=== PATIENT | female | born 1955 | race Caucasian/White ===

== ENCOUNTER 2017-01-05 07:09 | Day surgery (SDC) | payer BC ==
[2017-01-03 13:29] VITALS: BMI 30.7
[~2017-01-05 07:09] MED LIST: LACTATED RINGERS 1,000 ML IV SCH
[2017-01-05] MEDS ORDERED: LACTATED RINGERS 1,000 ML IV ONE (07:17)
[2017-01-05 07:28] VITALS: TEMP 97
[2017-01-05 07:32] LABS: Glucose,Whole Blood 220 mg/dL (75-99)
[2017-01-05] MEDS ORDERED: PROPOFOL 10 MG/ML 20 ML VIAL IV ONE (07:56)
[2017-01-05] MEDS ORDERED: MIDAZOLAM 2 MG/2 ML VIAL ONE (07:56)
[2017-01-05] MEDS ORDERED: fentaNYL (PF) 50 MCG/ML 2 ML AMP ONE (07:56)
[2017-01-05 08:26] VITALS: RESP 16
--- NOTE | 2017-01-05 08:30 | P.PCN ---
Date of Procedure: 01/05/17 Procedure(s) Performed: Procedure: Total colonoscopy. Preoperative diagnosis: Screening for neoplasia. Postoperative diagnosis: Mild evidence of cirrhosis. Preparation: HalfLytely prep. Sedation: Was provided by anesthesia. Brief clinical history: The patient is a 61-year-old female who is referred for this evaluation for screening for neoplasia. She had no prior exams the last was around 10 years ago. At this time, she has no abdominal complaints, bleeding or anemia. No family history of colon cancer. Procedure: With the patient on her left lateral decubitus position and after informed consent and adequate sedation, the perianal area was inspected and it did not show any fissures or fistulas. There were no masses felt on digital rectal examination. The Olympus CFQ 160L video colonoscope was then inserted in the rectum in the usual fashion and advanced to the cecum. The mucosa appeared healthy. There was occasional diverticular orifices seen in the sigmoid and around the hepatic flexure with no evidence of acute diverticulitis or strictures. No polyps or tumors were seen. I retroflexed endoscope in the rectum before the endoscope was withdrawn. The patient tolerated the procedure well. Plan: The patient was reassured. Discussed dietary measures. She will follow- up with you as planned and I recommended repeat exam in 10 years.
[2017-01-05 08:41] VITALS: BP 124/67; PULSE 66
[2017-01-05 08:43] LABS: Glucose,Whole Blood 245 mg/dL (75-99)
== END 2017-01-05 09:11 | disposition home or self-care (01) ==
LOC: ORWHC2ENDO 07:09
DX: Z12.11 Encounter for screening for malignant neoplasm of colon (principal); K57.30 Diverticulosis of large intestine without perforation or abscess without bleeding; E11.9 Type 2 diabetes mellitus without complications; K21.9 Gastro-esophageal reflux disease without esophagitis; Z79.82 Long term (current) use of aspirin; Z79.4 Long term (current) use of insulin; Z79.899 Other long term (current) drug therapy; Z91.018 Allergy to other foods
CPT/HCPCS: J2250; J3010; J2704; G0121

== ENCOUNTER → 2017-02-27 | Outpatient (CLI) | payer BC ==
--- NOTE | 2017-02-28 08:21 | MM ---
Reason for exam: screening (asymptomatic). Last mammogram was performed 1 year and 2 months ago. History: Patient is postmenopausal. Family history of breast cancer in paternal cousin at age 40. Benign stereotactic core biopsy of the right breast, December 21, 1998. Core biopsy of the right breast. Took estrogen for 2 years. Physical Findings: A clinical breast exam by your physician is recommended on an annual basis and results should be correlated with mammographic findings. MG Screening Mammo w CAD Bilateral CC and MLO view(s) were taken. Prior study comparison: December 29, 2015, bilateral MG screening mammo w CAD. October 02, 2014, bilateral MG screening mammo w CAD. The breast tissue is almost entirely fat. Previous mammotome biopsy in the right breast. No significant changes when compared with prior studies. ASSESSMENT: Benign, BI-RAD 2 RECOMMENDATION: Routine screening mammogram of both breasts in 1 year.
== END | disposition home or self-care (01) ==
LOC: RADMAMWWP 07:03
PROVIDERS: ATTEND Family Medicine
DX: Z12.31 Encounter for screening mammogram for malignant neoplasm of breast (principal)

== ENCOUNTER → 2018-03-19 | Outpatient (CLI) | payer BC ==
[2018-03-19 11:07] LABS: Vitamin D 25 Hydroxy 29.2 ng/mL (30.0-100.0)
== END | disposition home or self-care (01) ==
LOC: LABWHC1 07:12
PROVIDERS: ATTEND Psychiatry & Neurology Neurology
DX: R41.3 Other amnesia (principal)
CPT/HCPCS: 36415; 82306; 82607; 82747; 85652

== ENCOUNTER → 2018-04-06 | Outpatient (CLI) | payer BC ==
[2018-04-06 12:31] LABS: Albumin 4.2 g/dL (3.5-5.0); Calcium 9.4 mg/dL (8.4-10.2); Potassium 4.5 mmol/L (3.5-5.1); Total Bilirubin 0.7 mg/dL (0.2-1.3)
== END | disposition home or self-care (01) ==
LOC: LABWHC1 11:50
PROVIDERS: ATTEND Internal Medicine Endocrinology, Diabetes & Metabolism
DX: E11.65 Type 2 diabetes mellitus with hyperglycemia (principal); E55.9 Vitamin D deficiency, unspecified
CPT/HCPCS: 36415; 80053; 80061; 82043; 82306; 82570; 83036

== ENCOUNTER → 2018-04-30 | Outpatient (CLI) | payer BC ==
--- NOTE | 2018-05-01 10:51 | MM ---
Reason for exam: screening (asymptomatic). Last mammogram was performed 1 year and 2 months ago. History: Patient is postmenopausal. Family history of breast cancer in paternal cousin at age 40. Benign stereotactic core biopsy of the right breast, December 21, 1998. Core biopsy of the right breast. Took estrogen for 2 years. Physical Findings: A clinical breast exam by your physician is recommended on an annual basis and results should be correlated with mammographic findings. MG Screening Mammo w CAD Bilateral CC and MLO view(s) were taken. Prior study comparison: February 27, 2017, bilateral MG screening mammo w CAD. December 29, 2015, bilateral MG screening mammo w CAD. There are scattered fibroglandular densities. Previous mammotome biopsy in the right breast. There is no discrete abnormality. ASSESSMENT: Benign, BI-RAD 2 RECOMMENDATION: Routine screening mammogram of both breasts in 1 year.
== END | disposition home or self-care (01) ==
LOC: RADMAMWWP 07:34
PROVIDERS: ATTEND Family Medicine
DX: Z12.31 Encounter for screening mammogram for malignant neoplasm of breast (principal)
CPT/HCPCS: 77067

== ENCOUNTER → 2018-05-08 | Outpatient (CLI) | payer BC ==
--- NOTE | 2018-05-08 16:43 | BD ---
EXAMINATION TYPE: Axial Bone Density DATE OF EXAM: 05/08/2018 COMPARISON: NONE CLINICAL HISTORY: 62 YR OLD FEMALE.....ICD-10 CODE: Z13.820 SCREENING FOR OSTEOPOROSIS Height: 60.4 Weight: 165 FRAX RISK QUESTIONS: History of Fracture in Adulthood: YES Secondary Osteoporosis: YES 1. Type 1 Diabetes: YES 5. Chronic liver disease: FATTY LIVER RISK FACTORS HISTORY OF: HX OF RT ANKLE FRACTURE..> 51 YRS OLD Family History of Osteoporosis: NONE KNOWN Active: SOMEWHAT Diet low in dairy products/other sources of calcium: NO Postmenopausal woman: YES AT AGE 49 YRS OLD MEDICATIONS: Thyroid Medications: STOPPED TAKING THEM 10 YRS AGO Additional Medications: ZOLOFT, INSULIN, VIT D3, REFLUX MEDS. Additional History: DIABETIC, OSTEOARTHRITIS EXAM MEASUREMENTS: Bone mineral densitometry was performed using the [employer]gent[employer] System. Bone mineral density as measured about the Lumbar spine is: ----- L1-L4(G/cm2): 1.397 T Score Values are as follows: ----- L1: 1.3 ----- L2: 2.6 ----- L3: 2.3 ----- L4: 1.0 ----- L1-L4: 1.8 Bone mineral density FIRST BONE DENSITY AT [facility] Bone mineral density about the R hip (g/cm2): 1.328 Bone mineral density about the L hip (g/cm2): 1.299 T Score values are as follows: -----R Neck: 1.5 -----L Neck: 0.9 -----R Total: 2.5 -----L Total: 2.3 Bone mineral density HER FIRST FOR MPH FRAX%s: THERE IS A 9.2% CHANCE OF A MAJOR OSTEOPOROTIC FX AND A 0.1% FOR A HIP FX.....PROBABILITY OF FX IN 10 YRS TIME IMPRESSION: Normal (Values between +1 and -1 indicate normal bone mass). Consider repeating this study in 5 year s or sooner if there is some new clinical indication. NOTE: T-SCORE=SD OF THE YOUNG ADULT MEAN.
== END | disposition home or self-care (01) ==
LOC: RADBDWWP 07:54
PROVIDERS: ATTEND Internal Medicine Rheumatology
DX: Z13.820 Encounter for screening for osteoporosis (principal)
CPT/HCPCS: 77080

== ENCOUNTER → 2018-06-04 | Outpatient (CLI) | payer BC ==
[2018-06-04 13:08] LABS: ALT 54 U/L (9-52); AST 45 U/L (14-36); Alkaline Phosphatase 58 U/L (38-126)
== END | disposition home or self-care (01) ==
LOC: LABWHC1 12:07
PROVIDERS: ATTEND Psychiatry & Neurology Neurology
DX: R79.9 Abnormal finding of blood chemistry, unspecified (principal); T50.905D Adverse effect of unspecified drugs, medicaments and biological substances, subsequent encounter
CPT/HCPCS: 36415; 84075; 84450; 84460

== ENCOUNTER → 2018-08-18 | Outpatient (CLI) | payer BC ==
[2018-08-18 17:53] LABS: Albumin 4.5 g/dL (3.80-4.90); Albumin/Globulin Ratio 2.14 (1.20-2.10); Anion Gap 7.9 mmol/L (4.00-12.00); Calcium 9.6 mg/dL (8.7-10.3); Carbon Dioxide 28.1 mmol/L (21.6-31.8); Globulin 2.1 g/dL (2.1-3.7); LDL Cholesterol,Calculated 270.2 mg/dL (0.0-131.0); Potassium 4.2 mmol/L (3.5-5.5); Total Bilirubin 0.4 mg/dL (0.2-1.2); Total Protein 6.6 g/dL (6.2-8.2); VLDL Calculation 39.8 mg/dL (5.00-40.00)
[2018-08-18 19:57] LABS: Hemoglobin A1C 8.7 % (4.0-6.0)
== END ==
LOC: LABWHC1 10:06
PROVIDERS: ATTEND Internal Medicine Endocrinology, Diabetes & Metabolism
DX: E11.65 Type 2 diabetes mellitus with hyperglycemia (principal)
CPT/HCPCS: 36415; 80053; 80061; 82043; 82570; 83036

== ENCOUNTER → 2018-09-21 | Outpatient (CLI) | payer BC ==
--- NOTE | 2018-09-21 15:38 | US ---
EXAMINATION TYPE: US carotid duplex BILAT DATE OF EXAM: 09/21/2018 COMPARISON: NONE CLINICAL HISTORY: R94.01 Abnormal EEG. EXAM MEASUREMENTS: RIGHT: Peak Systolic Velocity (PSV) cm/sec ----- Right CCA: 66.3 ----- Right ICA: 75.0 ----- Right ECA: 114.0 ICA/CCA ratio: 1.1 RIGHT: End Diastole cm/sec ----- Right CCA: 19.8 ----- Right ICA: 27.0 ----- Right ECA: 13.9 LEFT: Peak Systolic Velocity (PSV) cm/sec ----- Left CCA: 70.0 ----- Left ICA: 84.5 ----- Left ECA: 116.1 ICA/CCA ratio: 1.2 LEFT: End Diastole cm/sec ----- Left CCA: 19.7 ----- Left ICA: 30.7 ----- Left ECA: 9.5 VERTEBRALS (direction of flow): Right Vertebral: Antegrade Left Vertebral: Antegrade Rhythm: Normal Minimal amount of plaque visualized bilaterally. No elevated velocities, no significant stenosis. IMPRESSION: Mild degree of grayscale atheromatous plaquing with no sonographically evident hemodynam ically significant stenosis within either visualized carotid arterial system. Criteria for Assigning % of Stenosis / Diameter reduction (Estimation based on the indirect measurements of the internal carotid artery velocities (ICA PSV). 1. Normal (no stenosis)=ICA PSV < 125 cm/s: ratio < 2.0: ICA EDV<40 cm/s. 2. Less than 50% stenosis=ICA PSV < 125 cm/s: ratio < 2.0: ICA EDV<40 cm/s. 3. 50 to 69% stenosis=ICA PSV of 125 to 230 cm/s: ration 2.0 ? 4.0: ICA EDV 40-100 cm/s. 4. Greater than 70% stenosis to near occlusion= ICA PSV > 230 cm/s: ratio > 4.0: ICA EDV > 100 cm/s. 5. Near occlusion= ICA PSV velocities may be low or undetectable: variable ratio and ICA EDV. 6. Total occlusion=unable to detect flow.
== END | disposition home or self-care (01) ==
LOC: RADUSWWP 14:43
PROVIDERS: ATTEND Psychiatry & Neurology Neurology
DX: I65.23 Occlusion and stenosis of bilateral carotid arteries (principal)
CPT/HCPCS: 93880

== ENCOUNTER → 2018-10-15 | Outpatient (CLI) | payer BC ==
[2018-10-15 21:24] LABS: LDL Cholesterol,Calculated 220.2 mg/dL (0.0-131.0); VLDL Calculation 27.8 mg/dL (5.00-40.00)
== END | disposition home or self-care (01) ==
LOC: LABWHC1 11:17
PROVIDERS: ATTEND Psychiatry & Neurology Neurology
DX: E78.5 Hyperlipidemia, unspecified (principal)
CPT/HCPCS: 36415; 80061

== ENCOUNTER → 2018-10-25 | Outpatient (CLI) | payer BC ==
--- NOTE | 2018-10-29 08:32 | MR ---
EXAMINATION TYPE: MR brain wo con DATE OF EXAM: 10/25/2018 COMPARISON: 02/22/2016 HISTORY: Rt sided numbness, memory loss CONTRAST: Performed utilizing 0 mL intravenous Gadavist gadolinium contrast. TECHNIQUE: Multiplanar, multiecho imaging on a 3.0 Naomi magnet is performed through the brain. Stud y is performed within 24 hours of arrival to the hospital. The craniovertebral junction is normal. The pituitary is normal. Diffusion-weighted imaging is performed. No abnormal hyperintensity is present to suggest an acute i ntracranial infarct or acute ischemic change. Signal through the brain appears unremarkable . There are couple of punctate white matter changes wit hin the trilobar region and right hemisphere not out of proportion to the patient age. Ventricles and sulci are appropriate for the patient age. Portion of the optic chiasm visualized is normal. IMPRESSIONS: 1. MRI brain appears within normal limits. There are couple of punctate white matter changes which ar e nonspecific and not out of proportion to the patient age. This finding could be associated with randy aurora headaches.
== END ==
LOC: RADMRIMAIN 16:39
PROVIDERS: ATTEND Psychiatry & Neurology Neurology
DX: R90.89 Other abnormal findings on diagnostic imaging of central nervous system (principal)
CPT/HCPCS: 70551

== ENCOUNTER → 2018-11-10 | Outpatient (CLI) | payer BC ==
[2018-11-10 17:17] LABS: LDL Cholesterol,Calculated 229.6 mg/dL (0.0-131.0); VLDL Calculation 27.4 mg/dL (5.00-40.00)
== END ==
LOC: LABWHC1 10:32
PROVIDERS: ATTEND Psychiatry & Neurology Neurology
DX: E78.5 Hyperlipidemia, unspecified (principal); E78.1 Pure hyperglyceridemia
CPT/HCPCS: 36415; 80061

== ENCOUNTER 2018-11-22 18:37 | Emergency (ER) | payer BC ==
[2018-11-22 19:38] LABS: Basophils # (A) 0.1 k/uL (0-0.2); Basophils % (A) 1 %; Eosinophils # (A) 0.3 k/uL (0-0.7); Eosinophils % (A) 4 %; HCT 40.4 % (34.0-46.0); HGB 13.6 gm/dL (11.4-16.0); Lymphocytes % (A) 25 %; MCH 28.8 pg (25.0-35.0); MCHC 33.7 g/dL (31.0-37.0); MCV 85.6 fL (80.0-100.0); Mean Platelet Volume 6.8; Monocytes # (A) 0.4 k/uL (0-1.0); Monocytes % (A) 6 %; Neutrophils % (A) 64 %; Platelet Count 240 k/uL (150-450); RBC 4.72 m/uL (3.80-5.40); RDW 15.2 % (11.5-15.5); WBC 7.9 k/uL (3.8-10.6)
[2018-11-22 19:41] VITALS: RESP 16
[2018-11-22 19:43] LABS: Appearance,Urine Clear (Clear); Bacteria,Urine Occasional /hpf; Bilirubin,Urine Negative (Negative); Blood,Urine Negative (Negative); Color,Urine Light Yellow; Glucose,Urine (UA) Negative (Negative); Ketones,Urine Negative (Negative); Leukocyte Esterase,Urine Moderate (Negative); Mucus,Urine Rare /hpf; Nitrite,Urine Negative (Negative); Protein,Urine Negative (Negative); RBC,Urine 1 /hpf (0-5); Specific Gravity,Urine 1.012 (1.001-1.035); Squamous Epithelial Cell,Urine 3 /hpf (0-4); Urobilinogen,Urine <2.0 mg/dL (<2.0)
[2018-11-22 20:02] LABS: Albumin 4.4 g/dL (3.5-5.0); Potassium 4.6 mmol/L (3.5-5.1); Total Bilirubin 0.5 mg/dL (0.2-1.3); Total Protein 7.2 g/dL (6.3-8.2)
--- NOTE | 2018-11-22 20:35 | CT ---
EXAMINATION TYPE: CT abdomen pelvis wo con DATE OF EXAM: 11/22/2018 COMPARISON: None HISTORY: Mid back pain radiating to RT side CT DLP: 551 mGycm Automated exposure control for dose reduction was used. TECHNIQUE: Helical acquisition of images was performed from the lung bases through the pelvis. FINDINGS: There is subsegmental atelectasis at the lung bases. There is no pleural effusion. Heart size is norm al. There is no pericardial effusion. Stomach appears normal. There are clips from cholecystectomy. L iver shows no focal defect. The bile ducts are not dilated. Spleen appears normal. There is no pancre atic mass. There is no adrenal mass. Kidneys have normal size and contour. There is no hydronephrosis. Ureters a re not dilated. There are retroperitoneal and bilateral calcified granulomata. There is no retroperit godoy adenopathy. Bladder distends smoothly. There is no inguinal hernia. There is no evidence of a b owel obstruction. Appendix appears normal. There is no mesenteric edema. There is small umbilical her toyin that contains fat. I see no bony destructive process. Lumbar vertebra are intact. There is hyster ectomy. There is no mesenteric edema. There is no free air. There is no ascites. IMPRESSION: NO ACUTE INTRA-ABDOMINAL ABNORMALITY. NO RENAL STONE OR OBSTRUCTION. NORMAL APPENDIX. OLD GRANULOMATO US DISEASE. MILD SUBSEGMENTAL ATELECTASIS AT THE LUNG BASES.
--- NOTE | 2018-11-22 20:49 | ED ---
General Adult HPI - General Chief complaint: Back Pain/Injury Stated complaint: poss kidney infection Time Seen by Provider: 11/22/18 18:53 Source: patient, RN notes reviewed, old records reviewed Mode of arrival: ambulatory Limitations: no limitations - History of Present Illness Initial comments: 63-year-old female patient past medical history of type 2 diabetes, GERD presents to ED approximately one year of right parathoracic/flank pain. Patient reports that today while at the chiropractor he this to the pain from that area and explained to patient that is where her kidneys are located and she should come to the ER to be checked out for kidney issues. Patient denies any dysuria, dark urine or hematuria. Patient denies any other complaints today. Systemic: Pt denies fatigue, myalgia, fever/chills, rash. Pt denies weakness, night sweats, weight loss. Neuro: Pt denies headache, visual disturbances, syncope or pre-syncope. HEENT: Pt denies ocular discharge or irritation, otalgia, rhinorrhea, pharyngitis or notable lymphadenopathy. Cardiopulmonary: Pt denies chest pain, SOB, heart palpitations, dyspnea on exertion. Abdominal/GI: Pt denies abdominal pain, n/v/d. : Pt denies dysuria, burning w/ urination, frequency/urgency. Denies new onset urinary or bowel incontinence. MSK: Pt denies myalgia, loss of strength or function in extremities. Neuro: Pt denies new onset weakness, paresthesias. - Related Data Home Medications Medication Instructions Recorded Confirmed Pantoprazole Sodium 40 mg PO BID 01/19/15 11/22/18 Sertraline [Zoloft] 200 mg PO HS 01/19/15 11/22/18 Aspirin EC [Ecotrin Low Dose] 162 mg PO HS 11/22/18 11/22/18 Cholecalciferol [Vitamin D3] 4,000 unit PO DAILY 11/22/18 11/22/18 Insulin NPH Hum/Reg Insulin Hm 50 unit SQ AC-BID 11/22/18 11/22/18 [Novolin 70-30 Flexpen] Previous Rx's Medication Instructions Recorded Cephalexin [Keflex] 500 mg PO Q12HR 10 Days #20 cap 11/22/18 Allergies Allergy/AdvReac Type Severity Reaction Status Date / Time latex Allergy Unknown Verified 11/22/18 19:12 Hqkjydb-Lqk-Emy Reductase Allergy Unknown Verified 11/22/18 19:12 Inhibitor Yeast Allergy severe Verified 11/22/18 19:12 coughing,n/v Review of Systems ROS Statement: Those systems with pertinent positive or pertinent negative responses have been documented in the HPI. ROS Other: All systems not noted in ROS Statement are negative. 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, HX FATTY LIVER & ELEVATED LIVER ENZYMES History of Any Multi-Drug Resistant Organisms: None Reported Past Surgical History: Section, Cholecystectomy, Hysterectomy, Ortho pedic Surgery Additional Past Surgical History / Comment(s): BILAT-CTR Past Anesthesia/Blood Transfusion Reactions: Previous Problems w/ Anesthesia Additional Past Anesthesia/Blood Transfusion Reaction / Comment(s): SLOW TO WAKE UP FROM ANESTHESIA,no problems with prior blood transfusions Past Psychological History: Anxiety, Depression, Panic Disorder Smoking Status: Never smoker Past Alcohol Use History: None Reported Past Drug Use History: None Reported - Past Family History Father Family Medical History: Dementia Mother Family Medical History: No Reported History General Exam - General Exam Comments Initial Comments: Constitutional: NAD, AOX3, Pt has pleasant affect. HEENT: NC/AT, trachea midline, neck supple, no lymphadenopathy. Posterior pharyn x non erythematous, without exudates. External ears appear normal, without discharge. Mucous membranes moist. Eyes PERRLA, EOM intact. There is no scleral icterus. No pallor noted. Cardiopulmonary: RRR, no murmurs, rubs or gallops, no JVD noted. Lungs CTAB in anterior and posterior garsia. No peripheral edema. Abdominal exam: Abdomen soft and non-distended. Abdomen non-tender to palpation in all 4 quadrants. Bowel sounds active in LLQ. No hepatosplenomegaly. No ecchymosis. CVA tenderness negative bilaterally. Neuro: CN II-XII grossly intact. No nuchal rigidity. MSK: No cervical thoracic or lumbar tenderness. No posterior calf tenderness bilaterally, homans sign negative bilaterally. Posterior tibialis and radial pulse +2 bilaterally. Sensation intact in upper and lower extremities. Full active ROM in upper and lower extremities, 5/5 stregnth. Limitations: no limitations Course Vital Signs 11/22/18 11/22/18 18:46 19:41 Temperature 98.3 F Pulse Rate 77 63 Respiratory 18 16 Rate Blood Pressure 131/82 O2 Sat by Pulse 93 L 98 Oximetry Medical Decision Making - Medical Decision Making 63-year-old female patient past medical history of type 2 diabetes, GERD presents to ED approximately one year of right parathoracic/flank pain. Patient reports that today while at the chiropractor he this to the pain from that area and explained to patient that is where her kidneys are located and she should come to the ER to be checked out for kidney issues. Patient denies any dysuria, dark urine or hematuria. Patient denies any other complaints today. Patient will signs stable, afebrile. Physical exam did not display acute pathology. CBC noncompressive. CMP revealed hyperglycemia, mildly Elevated liver enzymes. UA revealed mild UTI. CT abdomen and pelvis did not display acute pathology. Patient discharged with outpatient follow-up with primary care provider. Patient treated for urinary tract infection with Keflex. Case discussed with Dr. Pérez. - Lab Data Result diagrams: 11/22/18 19:20 11/22/18 19:20 Lab Results 11/22/18 11/22/18 11/22/18 Range/Units 19:20 19:20 19:20 WBC 7.9 (3.8-10.6) k/uL RBC 4.72 (3.80-5.40) m/uL Hgb 13.6 (11.4-16.0) gm/dL Hct 40.4 (34.0-46.0) % MCV 85.6 (80.0-100.0) fL MCH 28.8 (25.0-35.0) pg MCHC 33.7 (31.0-37.0) g/dL RDW 15.2 (11.5-15.5) % Plt Count 240 (150-450) k/uL Neutrophils % 64 % Lymphocytes % 25 % Monocytes % 6 % Eosinophils % 4 % Basophils % 1 % Neutrophils # 5.0 (1.3-7.7) k/uL Lymphocytes # 2.0 (1.0-4.8) k/uL Monocytes # 0.4 (0-1.0) k/uL Eosinophils # 0.3 (0-0.7) k/uL Basophils # 0.1 (0-0.2) k/uL Sodium 140 (137-145) mmol/L Potassium 4.6 (3.5-5.1) mmol/L Chloride 104 (98-107) mmol/L Carbon Dioxide 25 (22-30) mmol/L Anion Gap 11 mmol/L BUN 23 H (7-17) mg/dL Creatinine 0.96 (0.52-1.04) mg/dL Est GFR (CKD-EPI)AfAm 73 (>60 ml/min/1.73 sqM) Est GFR (CKD-EPI)NonAf 64 (>60 ml/min/1.73 sqM) Glucose 232 H (74-99) mg/dL Calcium 10.0 (8.4-10.2) mg/dL Total Bilirubin 0.5 (0.2-1.3) mg/dL AST 47 H (14-36) U/L ALT 55 H (9-52) U/L Alkaline Phosphatase 70 (38-126) U/L Total Protein 7.2 (6.3-8.2) g/dL Albumin 4.4 (3.5-5.0) g/dL Urine Color Light Yellow Urine Appearance Clear (Clear) Urine pH 6.0 (5.0-8.0) Ur Specific [place] 1.012 (1.001-1.035) Urine Protein Negative (Negative) Urine Glucose (UA) Negative (Negative) Urine Ketones Negative (Negative) Urine Blood Negative (Negative) Urine Nitrite Negative (Negative) Urine Bilirubin Negative (Negative) Urine Urobilinogen <2.0 (<2.0) mg/dL Ur Leukocyte Esterase Moderate H (Negative) Urine RBC 1 (0-5) /hpf Urine WBC 11 H (0-5) /hpf Ur Squamous Epith Cells 3 (0-4) /hpf Urine Bacteria Occasional H (None) /hpf Urine Mucus Rare H (None) /hpf Disposition Clinical Impression: UTI (urinary tract infection) Disposition: HOME SELF-CARE Condition: Stable Instructions (If sedation given, give patient instructions): Urinary Tract Infection in Women (ED) Additional Instructions: Patient to adhere to previously discussed treatment plan and will take medication(s) as directed. Patient to follow up with PCP in 1-2 days. Patient to return to ED if symptoms do not improve. Please take medication as prescribed. Please follow-up with primary care provider in 1-2 days. Return to ER if condition worsens in anyway or new signs or symptoms develop. Prescriptions: Cephalexin [Keflex] 500 mg PO Q12HR 10 Days #20 cap Is patient prescribed a controlled substance at d/c from ED?: No Referrals: Donna Draper MD [Primary Care Provider] - 1-2 days
[2018-11-22 21:06] VITALS: BP 138/80; PULSE 68; TEMP 97.9
== END 2018-11-22 21:18 | disposition home or self-care (01) ==
LOC: EC 18:37
DX: N39.0 Urinary tract infection, site not specified (principal); E11.65 Type 2 diabetes mellitus with hyperglycemia; R79.89 Other specified abnormal findings of blood chemistry; K21.9 Gastro-esophageal reflux disease without esophagitis; F41.9 Anxiety disorder, unspecified; F32.9 Major depressive disorder, single episode, unspecified; Z79.84 Long term (current) use of oral hypoglycemic drugs; Z90.49 Acquired absence of other specified parts of digestive tract; Z90.710 Acquired absence of both cervix and uterus; Z79.4 Long term (current) use of insulin; Z79.899 Other long term (current) drug therapy; Z91.040 Latex allergy status; Z88.8 Allergy status to other drugs, medicaments and biological substances; Z91.048 Other nonmedicinal substance allergy status
CPT/HCPCS: 36415; 74176; 80053; 81001; 85025; 87086; 99284

== ENCOUNTER → 2019-03-11 | Outpatient (CLI) | payer BC ==
[2019-03-11 16:23] LABS: African American GFR (CKD) 62.3 (60.0-200.0); Albumin 4.5 g/dL (3.80-4.90); Albumin/Globulin Ratio 2.25 (1.60-3.17); Anion Gap 9.2 mmol/L (4.00-12.00); BUN/Creat Ratio 21.82 Ratio (12.00-20.00); Calcium 10.2 mg/dL (8.7-10.3); Carbon Dioxide 30.8 mmol/L (21.6-31.8); LDL Cholesterol,Calculated 215.2 mg/dL (0.0-131.0); Potassium 4.7 mmol/L (3.5-5.5); Total Bilirubin 0.4 mg/dL (0.2-1.2); Total Protein 6.5 g/dL (6.2-8.2); VLDL Calculation 33.8 mg/dL (5.00-40.00)
[2019-03-11 17:08] LABS: Hemoglobin A1C 7.5 % (4.0-6.0)
== END | disposition home or self-care (01) ==
LOC: LABWHC1 09:54
PROVIDERS: ATTEND Internal Medicine Endocrinology, Diabetes & Metabolism
DX: E11.65 Type 2 diabetes mellitus with hyperglycemia (principal); E78.5 Hyperlipidemia, unspecified
CPT/HCPCS: 36415; 80053; 80061; 82043; 82570; 83036; 84443

== ENCOUNTER → 2020-04-28 | Outpatient (CLI) | payer MEDICARE ==
[2020-04-28 22:34] LABS: African American GFR (CKD) 69.4 (60.0-200.0); Anion Gap 10.5 mmol/L (4.00-12.00); Calcium 9.5 mg/dL (8.7-10.3); Carbon Dioxide 25.5 mmol/L (21.6-31.8); Non-African American GFR(CKD) 59.9 (60.0-200.0); Potassium 4.1 mmol/L (3.5-5.5)
[2020-05-01 10:32] LABS: Soybean IgG 2.7 mcg/mL (< 2.0); Tomato IgG 11.7 mcg/mL (< 2.0); Walnut IgG 3.5 mcg/mL (< 2.0); Wheat IgG 28.9 mcg/mL (< 2.0)
[2020-05-01 10:33] LABS: Corn IgG 3.8 mcg/mL (< 2.0)
[2020-05-01 12:30] LABS: Chocolate IgG 4.4 mcg/mL (< 2.0); Crab IgG 2.5 mcg/mL (< 2.0); Peanut IgG 2.9 mcg/mL (< 2.0); Pork IgG 4.5 mcg/mL (< 2.0)
[2020-05-01 12:31] LABS: Apple IgG 3.3 mcg/mL (< 2.0); Banana IgG 30.6 mcg/mL (< 2.0); Beef IgG 31.1 mcg/mL (< 2.0); Cow's Milk IgG 92.5 mcg/mL (< 2.0); Orange IgG 3.1 mcg/mL (< 2.0); Potato IgG 4.9 mcg/mL (< 2.0)
[2020-05-01 12:32] LABS: Chicken Meat IgG <2.0 mcg/mL (< 2.0); Coffee IgG 5.8 mcg/mL (< 2.0); Oat IgG 19.3 mcg/mL (< 2.0); Rice IgG 5.1 mcg/mL (< 2.0)
[2020-05-05 14:54] LABS: Tea IgG 3.7 mcg/mL
== END | disposition home or self-care (01) ==
LOC: LABWHC1 11:19
PROVIDERS: ATTEND Otolaryngology
DX: E11.65 Type 2 diabetes mellitus with hyperglycemia (principal); J30.89 Other allergic rhinitis; R10.9 Unspecified abdominal pain; R14.0 Abdominal distension (gaseous)
CPT/HCPCS: 36415; 80048; 83930; 83935; 86001

== ENCOUNTER → 2020-04-30 | Outpatient (CLI) | payer MEDICARE ==
--- NOTE | 2020-04-30 14:23 | XR ---
EXAMINATION TYPE: XR shoulder complete RT DATE OF EXAM: 04/30/2020 COMPARISON: NONE HISTORY: 64-year-old female with right shoulder pain TECHNIQUE: 3 views FINDINGS: Mild degenerative change at the AC joint. No acute fracture, subluxation, dislocation seen. IMPRESSION: Mild AC joint OA. No acute osseous abnormality seen.
== END | disposition home or self-care (01) ==
LOC: RADXRMAIN 11:46
PROVIDERS: ATTEND Family Medicine
DX: M19.011 Primary osteoarthritis, right shoulder (principal)

== ENCOUNTER 2020-07-08 16:48 | Observation (INO) | payer MEDICARE ==
[2020-07-08 17:12] VITALS: RESP 18
--- NOTE | 2020-07-08 17:58 | ED ---
SOB HPI - General Chief Complaint: Shortness of Breath Stated Complaint: Sent by PCP - Need EKG,SOB Time Seen by Provider: 07/08/20 17:21 Source: patient Mode of arrival: ambulatory Limitations: no limitations - History of Present Illness Initial Comments: Patient is a 64-year-old female with past history of diabetes presents emergency room with reported exertional shortness of breath and chest pain. States that she has had exertional shortness of breath and chest pain that has gotten progressively worse over the past several days. She also reports to lower extremity cramping which has been persistent since last week. She denies a history of DVT or PE. No lower externally swelling. Denies a previous history of cardiac disease. Did have an appointment with her primary care physician today. It was a tele-visit for which she described her symptoms and was recommended that she come into the emergency room for evaluation. Denies ripping or tearing sensation. No fevers, chills or cough. No other alleviating, precipitating or modifying factors - Related Data Home Medications Medication Instructions Recorded Confirmed Pantoprazole Sodium 40 mg PO AC-BID 01/19/15 07/08/20 Sertraline [Zoloft] 200 mg PO HS 01/19/15 07/08/20 Cholecalciferol [Vitamin D3 (25 4,000 unit PO DAILY 11/22/18 07/08/20 Mcg = 1000 Iu)] Gemfibrozil [Lopid] 600 mg PO AC-BID 07/08/20 07/08/20 Insulin NPH Hum/Reg Insulin Hm See Protocol SQ AC-BID 07/08/20 07/08/20 [NovoLIN 70-30 100 UNIT/ML VIAL] Insuln Asp Prt/Insulin Aspart 30 unit SQ AC-BID 07/08/20 07/08/20 [NovoLOG MIX 70-30 VIAL] Uvf-Osen-Nkktq Acid 1 cap PO DAILY 07/08/20 07/08/20 [-U Capsule (formulary)] Previous Rx's Medication Instructions Recorded Aspirin 81 mg PO DAILY chew 07/09/20 Allergies Allergy/AdvReac Type Severity Reaction Status Date / Time latex Allergy Swelling Verified 07/08/20 18:47 Yeast Allergy severe Verified 07/08/20 18:47 coughing,n/v Pvgyqhn-Edx-Ykl Reductase AdvReac Muscle pain Verified 07/08/20 18:47 Inhibitor Review of Systems ROS Statement: Those systems with pertinent positive or pertinent negative responses have been documented in the HPI. ROS Other: All systems not noted in ROS Statement are negative. 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, HX FATTY LIVER & ELEVATED LIVER ENZYMES History of Any Multi-Drug Resistant Organisms: None Reported Past Surgical History: Section, Cholecystectomy, Hysterectomy, Orthopedic Surgery Additional Past Surgical History / Comment(s): BILAT-CTR Past Anesthesia/Blood Transfusion Reactions: Previous Problems w/ Anesthesia Additional Past Anesthesia/Blood Transfusion Reaction / Comment(s): SLOW TO WAKE UP FROM ANESTHESIA,no problems with prior blood transfusions Past Psychological History: Anxiety, Depression, Panic Disorder Smoking Status: Former smoker Past Alcohol Use History: Rare Past Drug Use History: None Reported - Past Family History Father Family Medical History: Dementia Mother Family Medical History: No Reported History General Exam Limitations: no limitations General appearance: alert, in no apparent distress Head exam: Present: atraumatic, normocephalic, normal inspection Eye exam: Present: normal appearance, PERRL, EOMI. Absent: scleral icterus, conjunctival injection, periorbital swelling ENT exam: Present: normal exam, mucous membranes moist Neck exam: Present: normal inspection. Absent: tenderness, meningismus, lymphadenopathy Respiratory exam: Present: normal lung sounds bilaterally. Absent: respiratory distress, wheezes, rales, rhonchi, stridor Cardiovascular Exam: Present: regular rate, normal rhythm, normal heart sounds. Absent: systolic murmur, diastolic murmur, rubs, gallop, clicks GI/Abdominal exam: Present: soft, normal bowel sounds. Absent: distended, tenderness, guarding, rebound, rigid Extremities exam: Present: normal inspection, full ROM, normal capillary refill. Absent: tenderness, pedal edema, joint swelling, calf tenderness Back exam: Present: normal inspection Neurological exam: Present: alert, oriented X3, CN II-XII intact Psychiatric exam: Present: normal affect, normal mood Skin exam: Present: warm, dry, intact, normal color. Absent: rash Course Vital Signs 07/08/20 07/08/20 07/08/20 17:09 18:08 19:03 Temperature 98.4 F 98 F 98.9 F Pulse Rate 65 59 L 56 L Respiratory 18 18 18 Rate Blood Pressure 123/78 113/68 126/65 O2 Sat by Pulse 96 97 98 Oximetry 07/08/20 21:01 Temperature Pulse Rate 62 Respiratory 18 Rate Blood Pressure 121/55 O2 Sat by Pulse 97 Oximetry Medical Decision Making - Medical Decision Making Upon arrival patient is placed into room 3. A thorough history and physical exam was performed. 12-lead EKG was performed. Laboratory studies were conducted. Doppler ultrasound of lower ex was performed and was negative. Recommended hospital admission for cardiac consultation for which patient did agree to. Patient was then transferred to the floor in stable condition - Lab Data Result diagrams: 07/09/20 07:09 07/09/20 07:09 Lab Results 07/08/20 07/08/20 07/08/20 Range/Units 17:46 17:46 17:46 WBC 4.9 (3.8-10.6) k/uL RBC 4.24 (3.80-5.40) m/uL Hgb 13.3 (11.4-16.0) gm/dL Hct 37.0 (34.0-46.0) % MCV 87.1 (80.0-100.0) fL MCH 31.3 (25.0-35.0) pg MCHC 35.9 (31.0-37.0) g/dL RDW 14.0 (11.5-15.5) % Plt Count 179 (150-450) k/uL Neutrophils % 60 % Lymphocytes % 27 % Monocytes % 4 % Eosinophils % 6 % Basophils % 1 % Neutrophils # 2.9 (1.3-7.7) k/uL Lymphocytes # 1.3 (1.0-4.8) k/uL Monocytes # 0.2 (0-1.0) k/uL Eosinophils # 0.3 (0-0.7) k/uL Basophils # 0.0 (0-0.2) k/uL PT 10.1 (9.0-12.0) sec INR 1.0 (<1.2) APTT 24.8 (22.0-30.0) sec D-Dimer 0.23 (<0.60) mg/L FEU Sodium 138 (137-145) mmol/L Potassium 4.1 (3.5-5.1) mmol/L Chloride 105 (98-107) mmol/L Carbon Dioxide 25 (22-30) mmol/L Anion Gap 8 mmol/L BUN 21 H (7-17) mg/dL Creatinine 0.83 (0.52-1.04) mg/dL Est GFR (CKD-EPI)AfAm 87 (>60 ml/min/1.73 sqM) Est GFR (CKD-EPI)NonAf 76 (>60 ml/min/1.73 sqM) Glucose 167 H (74-99) mg/dL Plasma Lactic Acid Zeke (0.7-2.0) mmol/L Calcium 9.9 (8.4-10.2) mg/dL Total Bilirubin 0.4 (0.2-1.3) mg/dL AST 43 H (14-36) U/L ALT 55 H (4-34) U/L Alkaline Phosphatase 57 (38-126) U/L Troponin I (0.000-0.034) ng/mL NT-Pro-B Natriuret Pep pg/mL Total Protein 7.4 (6.3-8.2) g/dL Albumin 4.5 (3.5-5.0) g/dL 07/08/20 07/08/20 07/08/20 Range/Units 17:46 17:46 17:46 WBC (3.8-10.6) k/uL RBC (3.80-5.40) m/uL Hgb (11.4-16.0) gm/dL Hct (34.0-46.0) % MCV (80.0-100.0) fL MCH (25.0-35.0) pg MCHC (31.0-37.0) g/dL RDW (11.5-15.5) % Plt Count (150-450) k/uL Neutrophils % % Lymphocytes % % Monocytes % % Eosinophils % % Basophils % % Neutrophils # (1.3-7.7) k/uL Lymphocytes # (1.0-4.8) k/uL Monocytes # (0-1.0) k/uL Eosinophils # (0-0.7) k/uL Basophils # (0-0.2) k/uL PT (9.0-12.0) sec INR (<1.2) APTT (22.0-30.0) sec D-Dimer (<0.60) mg/L FEU Sodium (137-145) mmol/L Potassium (3.5-5.1) mmol/L Chloride (98-107) mmol/L Carbon Dioxide (22-30) mmol/L Anion Gap mmol/L BUN (7-17) mg/dL Creatinine (0.52-1.04) mg/dL Est GFR (CKD-EPI)AfAm (>60 ml/min/1.73 sqM) Est GFR (CKD-EPI)NonAf (>60 ml/min/1.73 sqM) Glucose (74-99) mg/dL Plasma Lactic Acid Zeke 0.7 (0.7-2.0) mmol/L Calcium (8.4-10.2) mg/dL Total Bilirubin (0.2-1.3) mg/dL AST (14-36) U/L ALT (4-34) U/L Alkaline Phosphatase (38-126) U/L Troponin I <0.012 (0.000-0.034) ng/mL NT-Pro-B Natriuret Pep 83 pg/mL Total Protein (6.3-8.2) g/dL Albumin (3.5-5.0) g/dL - EKG Data EKG Comments: EKG demonstrates a sinus bradycardia with a ventricular rate of 59. DE interval 152. QRS 78. QTC of 441. No acute ST segment elevations or depressions concerning for ischemic changes Disposition Clinical Impression: Chest pain Disposition: ADMITTED IP TO THIS [facility] Condition: Stable Is patient prescribed a controlled substance at d/c from ED?: No Decision to Admit Reason: Admit from EC Decision Date: 07/08/20 Decision Time: 20:13
--- NOTE | 2020-07-08 18:09 | XR ---
EXAMINATION TYPE: XR chest 2V DATE OF EXAM: 07/08/2020 COMPARISON: NONE HISTORY: Short of breath TECHNIQUE: 2 views FINDINGS: Heart and mediastinum are normal. Lungs are clear. Diaphragm is normal. There are chest lissette ds. Bony thorax is intact. IMPRESSION: Normal chest. Normal heart.
[2020-07-08 18:10] LABS: Basophils % (A) 1 %; Eosinophils # (A) 0.3 k/uL (0-0.7); Eosinophils % (A) 6 %; HGB 13.3 gm/dL (11.4-16.0); Lymphocytes # (A) 1.3 k/uL (1.0-4.8); Lymphocytes % (A) 27 %; MCH 31.3 pg (25.0-35.0); MCHC 35.9 g/dL (31.0-37.0); MCV 87.1 fL (80.0-100.0); Mean Platelet Volume 7.8; Monocytes # (A) 0.2 k/uL (0-1.0); Monocytes % (A) 4 %; Neutrophils # (A) 2.9 k/uL (1.3-7.7); Neutrophils % (A) 60 %; Platelet Count 179 k/uL (150-450); RBC 4.24 m/uL (3.80-5.40); WBC 4.9 k/uL (3.8-10.6)
[2020-07-08 18:21] LABS: Albumin 4.5 g/dL (3.5-5.0); Calcium 9.9 mg/dL (8.4-10.2); Potassium 4.1 mmol/L (3.5-5.1); Total Bilirubin 0.4 mg/dL (0.2-1.3); Total Protein 7.4 g/dL (6.3-8.2)
[2020-07-08 18:23] LABS: D-Dimer 0.23 mg/L FEU (<0.60); Partial Thromboplastin Time 24.8 sec (22.0-30.0); Prothrombin Time 10.1 sec (9.0-12.0)
[2020-07-08] MEDS ORDERED: NALOXONE 0.4 MG/ML 1 ML VIAL IV PRN (20:14)
--- NOTE | 2020-07-08 20:24 | US ---
EXAMINATION TYPE: US venous doppler duplex LE DATE OF EXAM: 07/08/2020 8:16 PM COMPARISON: NONE CLINICAL HISTORY: leg pain, exterional dyspnea. Leg pain x couple years intermittently. No hx of DVT. Patient does not take blood thinners. SIDE PERFORMED: Bilateral TECHNIQUE: The lower extremity deep venous system is examined utilizing real time linear array sonog erum with graded compression, doppler sonography and color-flow sonography. VESSELS IMAGED: External Iliac Vein (EIV) Common Femoral Vein Deep Femoral Vein Greater Saphenous Vein * Femoral Vein Popliteal Vein Small Saphenous Vein * Proximal Calf Veins (* superficial vessels) Right Leg: No evidence of DVT in veins imaged at this time from prox calf veins to EIV. Left Leg: No evidence of DVT in veins imaged at this time from prox calf veins to EIV. IMPRESSION: Negative exam. No evidence of deep vein thrombosis in both legs.
[2020-07-08] MEDS ORDERED: MELATONIN 5 MG TABLET PO SCH (21:15)
[2020-07-08] MEDS ORDERED: SERTRALINE 100 MG TAB PO SCH (22:45)
--- NOTE | 2020-07-08 22:55 | P.HPIM ---
History of Present Illness H&P Date: 07/08/20 The patient is a 64-year-old female with a PMH of type II DM and anxiety with panic attacks who presented to the ED with complaints of dyspnea on exertion and chest discomfort. The patient reports that she has a history of panic attacks when she feels that her chest becomes tight and she is not able to breathe. She notes that her current symptoms are different. She reports that over the past 2 weeks, she has had intermittent substernal chest tightness, with and without exertion, nonradiating, 4 out of 10 in intensity, and alleviating either with rest or on its own within a minute or 2. She notes that she was previously able to walk at a brisk pace for unlimited amount of time but now feels short of breath even with walking one block. As an example, she stated that walking from the emergency room parking lot to the entrance, she was really short of breath and developed her chest discomfort. She denied associated nausea, vomiting, palpitations, dizziness, or diaphoresis. Denied orthopnea, PND, or lower extremity edema. Reports a long-standing history of bilateral lower extremity cramping which she has been evaluated for by her PCPs. Denied pain radiating the back. In the emergency room, chest x-ray was unremarkable with EKG showing sinus bradycardia at 59 bpm with no acute ST/T-wave changes noted as reviewed by me. Lower extremity venous duplex was negative. Laboratory evaluation revealed a d-dimer of 0.23 with troponin less than 0.012. Review of Systems Pertinent positives and negatives as discussed in HPI, a complete review of systems was performed and all other systems are negative. 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, HX FATTY LIVER & ELEVATED LIVER ENZYMES History of Any Multi-Drug Resistant Organisms: None Reported Past Surgical History: Section, Cholecystectomy, Hysterectomy, Orthopedic Surgery Additional Past Surgical History / Comment(s): BILAT-CTR Past Anesthesia/Blood Transfusion Reactions: Previous Problems w/ Anesthesia Additional Past Anesthesia/Blood Transfusion Reaction / Comment(s): SLOW TO WAKE UP FROM ANESTHESIA,no problems with prior blood transfusions Past Psychological History: Anxiety, Depression, Panic Disorder Smoking Status: Former smoker Past Alcohol Use History: Rare Past Drug Use History: None Reported - Past Family History Father Family Medical History: Dementia Mother Family Medical History: No Reported History Medications and Allergies Home Medications Medication Instructions Recorded Confirmed Type Pantoprazole Sodium 40 mg PO AC-BID 01/19/15 07/08/20 History Sertraline [Zoloft] 200 mg PO HS 01/19/15 07/08/20 History Cholecalciferol [Vitamin D3] 4,000 unit PO DAILY 11/22/18 07/08/20 History Gemfibrozil [Lopid] 600 mg PO AC-BID 07/08/20 07/08/20 History Insulin NPH Hum/Reg Insulin Hm See Protocol SQ AC-BID 07/08/20 07/08/20 History [NovoLIN 70-30 100 UNIT/ML VIAL] Insuln Asp Prt/Insulin Aspart 30 unit SQ AC-BID 07/08/20 07/08/20 History [NovoLOG MIX 70-30 VIAL] Tkg-Sifh-Wkdvc Acid 1 cap PO DAILY 07/08/20 07/08/20 History [-U Capsule (formulary)] Allergies Allergy/AdvReac Type Severity Reaction Status Date / Time latex Allergy Swelling Verified 07/08/20 18:47 Yeast Allergy severe Verified 07/08/20 18:47 coughing,n/v Nwmqfmy-Vbi-Koy Reductase AdvReac Muscle pain Verified 07/08/20 18:47 Inhibitor Physical Exam Vitals: Vital Signs Temp Pulse Resp BP Pulse Ox 07/08/20 19:03 98.9 F 56 L 18 126/65 98 07/08/20 18:08 98 F 59 L 18 113/68 97 07/08/20 17:09 98.4 F 65 18 123/78 96 Intake and Output 07/08/20 07/08/20 07/08/20 06:59 14:59 22:59 Other: Weight 72.121 kg General: non toxic, no distress, appears at stated age, obese Derm: no unusual rashes/lesions no unusual ecchymoses, warm, dry Head: atraumatic, normocephalic, symmetric Eyes: EOMI, no lid lag, anicteric sclera, pupils equal round reactive to light ENT: Nose and ears atraumatic, no thrush, no pharyngeal erythema Neck: No thyromegaly, no cervical lymphadenopathy, trachea midline, supple Mouth: no lip lesion, mucus membranes moist Cardiovascular: S1S2 reg, no murmur, positive posterior tibial pulse bilateral, no edema, capillary refill less than 2 seconds Lungs: CTA bilateral, no rhonchi, no rales , no accessory muscle use Abdominal: soft, nontender to palpation, no guarding, no appreciable organomegaly, normal bowel sounds Ext: no gross muscle atrophy, muscle strength 5 out of 5 in all 4 extremities grossly, no contractures, Neuro: CN II-XI grossly intact, light touch intact all 4 extremities, finger to nose within normal limits, Psych: Alert, oriented, appropriate affect Results CBC & Chem 7: 07/08/20 17:46 07/08/20 17:46 Labs: Abnormal Lab Results - Last 24 Hours (Table) 07/08/20 Range/Units 17:46 BUN 21 H (7-17) mg/dL Glucose 167 H (74-99) mg/dL AST 43 H (14-36) U/L ALT 55 H (4-34) U/L Assessment and Plan Plan: Exertional dyspnea with occasional chest discomfort -Rule out ACS -Low suspicion for PE due to absence of hypoxia with low d-dimer -Obtain echocardiogram -Cardiology consult -Cardiac monitoring -Trend troponin Type II DM -Levemir 20 units daily at bedtime -Blood glucose monitoring with insulin sliding scale -Check A1c Abnormal LFTs -Monitor for now DVT prophylaxis -Heparin subq The patient is admitted with an anticipated less than 2 midnight stay for evaluation of exertional dyspnea CODE STATUS: Full Code Discussed with: Patient Anticipated discharge date: in am Anticipated discharge place: home A total of 40 minutes was spent on the care of this complex patient more than 50% of the time was spent in counseling and care coordination.
[2020-07-08] MEDS ORDERED: ASPIRIN 81 MG PO STA (22:57)
[2020-07-08] MEDS ORDERED: INSULIN DETEMIR (LEVEMIR) 100 UNIT/ML SYR SQ SCH (23:00)
[2020-07-08 23:23] LABS: Glucose,Whole Blood 197 mg/dL (75-99)
[2020-07-08] MEDS: ACETAMINOPHEN TAB 325 MG TAB PO PRN (23:28)
[2020-07-08] MEDS: PANTOPRAZOLE 40 MG TABLET PO SCH (23:29)
[2020-07-08] MEDS: HEPARIN SODIUM,PORCINE 5,000 UNIT/ML 1 ML VIAL SQ SCH (23:48)
[2020-07-09] MEDS: ACETAMINOPHEN TAB 325 MG TAB PO PRN ×2 (06:12→12:37)
[2020-07-09 06:52] LABS: Glucose,Whole Blood 131 mg/dL (75-99)
[2020-07-09] MEDS: PANTOPRAZOLE 40 MG TABLET PO SCH (06:56)
[2020-07-09] MEDS: INSULIN ASPART (NovoLOG) 100 UNIT/ML VIAL SQ SCH ×2 (06:57→13:56)
[2020-07-09 07:22] LABS: Basophils % (A) 1 %; Eosinophils # (A) 0.3 k/uL (0-0.7); Eosinophils % (A) 6 %; HCT 38.6 % (34.0-46.0); HGB 12.8 gm/dL (11.4-16.0); Lymphocytes # (A) 1.7 k/uL (1.0-4.8); Lymphocytes % (A) 33 %; MCH 29.2 pg (25.0-35.0); MCHC 33.1 g/dL (31.0-37.0); MCV 88.2 fL (80.0-100.0); Mean Platelet Volume 7.7; Monocytes # (A) 0.3 k/uL (0-1.0); Monocytes % (A) 6 %; Neutrophils # (A) 2.6 k/uL (1.3-7.7); Neutrophils % (A) 52 %; Platelet Count 191 k/uL (150-450); RBC 4.38 m/uL (3.80-5.40); RDW 14.2 % (11.5-15.5); WBC 5.1 k/uL (3.8-10.6)
[2020-07-09] MEDS ORDERED: FENOFIBRATE 160 MG TAB PO SCH (07:30)
[2020-07-09 07:34] LABS: Albumin 3.9 g/dL (3.5-5.0); Calcium 9.3 mg/dL (8.4-10.2); Potassium 3.8 mmol/L (3.5-5.1); Total Bilirubin 0.4 mg/dL (0.2-1.3); Total Protein 6.6 g/dL (6.3-8.2)
[2020-07-09] MEDS ORDERED: ASPIRIN 81 MG PO SCH (09:00)
[2020-07-09] MEDS: HEPARIN SODIUM,PORCINE 5,000 UNIT/ML 1 ML VIAL SQ SCH ×2 (09:01→16:37)
[2020-07-09 09:08] VITALS: BP 114/59
[2020-07-09] MEDS ORDERED: AMINOPHYLLINE 500 MG/20 ML VIAL IV PRN (09:22)
[2020-07-09] MEDS ORDERED: CAFFEINE CITRATE 60 MG/3 ML VIAL IV PRN (09:22)
[2020-07-09] MEDS ORDERED: REGADENOSON 0.4 MG/5 ML SYRINGE IV ONE (09:22)
--- NOTE | 2020-07-09 10:01 | P.CRDCN ---
History of Present Illness Consult date: 07/09/20 History of present illness: CHIEF COMPLAINT: Chest pain HISTORY OF PRESENT ILLNESS: This is a 64 -year old female with a past medical history significant for anxiety, depression, diabetes mellitus, and GERD. 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 However she reports she had a stress test and cardiac cath performed approximately [address] Hogue. We have been asked to see the patient in consultation for chest pain. Patient examined this morning at the bedside. Patient states she has not been f eeling well over the last 2 weeks. She reports having intermittent chest pressure over the last week. The patient states yesterday she was sitting out in her garage when she began to have chest pressure that lasted approximately 1 minute. She denies any radiation to her arm jaw or back. She does report some associated nausea with this but also reports having intermittent nausea over the past couple weeks. She reports shortness of breath over the past week as well with minimal activity. She states she came to the hospital for further evaluation. She notes that when she walked from the parking lot to the emergency room from her car she was very short of breath which is not typical for her. DIAGNOSTICS: EKG reveals sinus bradycardia. No acute signs of ischemia Chest xray negative for acute process Laboratory data: WBC 5.1. Hemoglobin 12.8. Platelet count 191. D-dimer 0.23. Sodium 139. Potassium 3.8. BUN 22. Creatinine 0.78. AST 37. ALT 45. Troponin negative 3. Magnesium 1.9. Current home cardiac medications include Lopid 600 mg twice a day REVIEW OF SYSTEMS: At the time of my exam: CONSTITUTIONAL: Denies fever or chills. HEENT: Denies blurred vision, vision changes, or eye pain. Denies hemoptysis CARDIOVASCULAR: Denies chest pain, orthopnea, PND or palpitations RESPIRATORY: No shortness of breath. GASTROINTESTINAL: Denies abdominal pain. Denies nausea or vomiting. HEMATOLOGIC: Denies bleeding disorders. GENITOURINARY: Denies any blood in urine. SKIN: Denies pruitis. Denies rash. PHYSICAL EXAM: VITAL SIGNS: Reviewed. GENERAL: Well-developed in no acute distress. HEENT: Head is normocephalic. Pupils are equal, round. Sclerae anicteric. Mucous membranes of the mouth are moist. Neck supple. No JVD or thyromegaly LUNGS: Respirations even and unlabored. Lungs essentially clear to auscultation bilaterally. HEART: Regular rate and rhythm. S1 and S2 heard. ABDOMEN: Soft. Nondistended. Nontender. EXTREMITIES: Normal range of motion. No clubbing or cyanosis. Peripheral pulses intact. No lower extremity edema NEUROLOGIC: Awake and alert. Oriented x 3. ASSESSMENT: Chest pain Exertional dyspnea Diabetes mellitus, type II Anxiety Depression GERD Obesity: BMI 30.0 Mildly elevated LFTs PLAN: An acute coronary event has been ruled out Obtain 2-D echo to assess cardiac structure and function Obtain Lexiscan stress test to assess for reversible ischemia Nurse practitioner note has been reviewed by physician. Signing provider agrees with the documented findings, assessment, and plan of care. 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, HX FATTY LIVER & ELEVATED LIVER ENZYMES History of Any Multi-Drug Resistant Organisms: None Reported Past Surgical History: Section, Cholecystectomy, Hysterectomy, Orthopedic Surgery Additional Past Surgical History / Comment(s): BILAT-CTR Past Anesthesia/Blood Transfusion Reactions: Previous Problems w/ Anesthesia Additional Past Anesthesia/Blood Transfusion Reaction / Comment(s): SLOW TO WAKE UP FROM ANESTHESIA,no problems with prior blood transfusions Past Psychological History: Anxiety, Depression, Panic Disorder Smoking Status: Former smoker Past Alcohol Use History: Rare Past Drug Use History: None Reported - Past Family History Father Family Medical History: Dementia Mother Family Medical History: No Reported History Medications and Allergies Home Medications Medication Instructions Recorded Confirmed Type Pantoprazole Sodium 40 mg PO AC-BID 01/19/15 07/08/20 History Sertraline [Zoloft] 200 mg PO HS 01/19/15 07/08/20 History Cholecalciferol [Vitamin D3] 4,000 unit PO DAILY 11/22/18 07/08/20 History Gemfibrozil [Lopid] 600 mg PO AC-BID 07/08/20 07/08/20 History Insulin NPH Hum/Reg Insulin Hm See Protocol SQ AC-BID 07/08/20 07/08/20 History [NovoLIN 70-30 100 UNIT/ML VIAL] Insuln Asp Prt/Insulin Aspart 30 unit SQ AC-BID 07/08/20 07/08/20 History [NovoLOG MIX 70-30 VIAL] Dsj-Woyu-Tjbna Acid 1 cap PO DAILY 07/08/20 07/08/20 History [-U Capsule (formulary)] Allergies Allergy/AdvReac Type Severity Reaction Status Date / Time latex Allergy Swelling Verified 07/08/20 18:47 Yeast Allergy severe Verified 07/08/20 18:47 coughing,n/v Xqwqrfo-Gwo-Fsm Reductase AdvReac Muscle pain Verified 07/08/20 18:47 Inhibitor Physical Exam Vitals: Vital Signs Temp Pulse Pulse Resp BP BP Pulse Ox 07/09/20 09:00 97.8 F 53 L 18 114/59 97 07/09/20 03:00 97.9 F 54 L 98/60 96 07/08/20 22:42 98.3 F 58 L 130/64 96 07/08/20 21:01 62 18 121/55 97 07/08/20 19:03 98.9 F 56 L 18 126/65 98 07/08/20 18:08 98 F 59 L 18 113/68 97 07/08/20 17:09 98.4 F 65 18 123/78 96 Intake and Output 07/08/20 07/09/20 07/09/20 22:59 06:59 14:59 Intake Total 650 Output Total 600 Balance 650 -600 Intake: Oral 650 Output: Urine 600 Other: Voiding Method Toilet # Voids 3 Weight 72.121 kg Results 07/09/20 07:09 07/09/20 07:09 Cardiac Enzymes 07/08/20 07/08/20 07/08/20 Range/Units 17:46 17:46 21:30 AST 43 H (14-36) U/L Troponin I <0.012 <0.012 (0.000-0.034) ng/mL 07/09/20 07/09/20 Range/Units 01:16 07:09 AST 37 H (14-36) U/L Troponin I <0.012 (0.000-0.034) ng/mL Coagulation 07/08/20 Range/Units 17:46 PT 10.1 (9.0-12.0) sec APTT 24.8 (22.0-30.0) sec CBC 07/08/20 07/09/20 Range/Units 17:46 07:09 WBC 4.9 5.1 (3.8-10.6) k/uL RBC 4.24 4.38 (3.80-5.40) m/uL Hgb 13.3 12.8 (11.4-16.0) gm/dL Hct 37.0 38.6 (34.0-46.0) % Plt Count 179 191 (150-450) k/uL Comprehensive Metabolic Panel 07/08/20 07/09/20 Range/Units 17:46 07:09 Sodium 138 139 (137-145) mmol/L Potassium 4.1 3.8 (3.5-5.1) mmol/L Chloride 105 104 (98-107) mmol/L Carbon Dioxide 25 29 (22-30) mmol/L BUN 21 H 22 H (7-17) mg/dL Creatinine 0.83 0.87 (0.52-1.04) mg/dL Glucose 167 H 136 H (74-99) mg/dL Calcium 9.9 9.3 (8.4-10.2) mg/dL AST 43 H 37 H (14-36) U/L ALT 55 H 45 H (4-34) U/L Alkaline Phosphatase 57 52 (38-126) U/L Total Protein 7.4 6.6 (6.3-8.2) g/dL Albumin 4.5 3.9 (3.5-5.0) g/dL Current Medications Generic Name Dose Route Start Last Admin Trade Name Freq PRN Reason Stop Dose Admin Acetaminophen 650 mg 07/08/20 21:10 07/09/20 06:12 Acetaminophen Tab 325 Mg Tab PO 650 mg Q6HR PRN Administration Fever and/ or Pain Aminophylline 100 mg 07/09/20 09:22 Aminophylline 500 Mg/20 Ml Vial IV ONCE PRN Patient Response Aspirin 81 mg 07/09/20 09:00 07/09/20 09:01 Aspirin 81 Mg PO 81 mg DAILY CJ Administration Caffeine Citrate 60 mg 07/09/20 09:22 Caffeine Citrate 60 Mg/3 Ml Vial IV ONCE PRN Patient Response Fenofibrate 160 mg 07/09/20 07:30 07/09/20 06:56 Fenofibrate 160 Mg Tab PO 160 mg AC-BID CJ Administration Heparin Sodium (Porcine) 5,000 unit 07/09/20 00:00 07/09/20 09:01 Heparin Sodium,Porcine 5,000 Unit/Ml 1 Ml Vial SQ 5,000 unit Q8HR CJ Administration Insulin Aspart 0 unit 07/09/20 07:30 07/09/20 06:57 Insulin Aspart (Novolog) 100 Unit/Ml Vial SQ 1 unit ACHS CJ Administration Protocol Insulin Detemir 20 unit 07/08/20 23:00 07/08/20 23:30 Insulin Detemir (Levemir) 100 Unit/Ml Syr SQ 20 unit HS CJ Administration Melatonin 5 mg 07/08/20 21:15 07/08/20 23:30 Melatonin 5 Mg Tablet PO 5 mg HS CJ Administration Naloxone HCl 0.2 mg 07/08/20 20:14 Naloxone 0.4 Mg/Ml 1 Ml Vial IV Q2M PRN Opioid Reversal Pantoprazole Sodium 40 mg 07/08/20 23:15 07/09/20 06:56 Pantoprazole 40 Mg Tablet PO 40 mg AC-BID CJ Administration Sertraline HCl 200 mg 07/08/20 22:45 07/08/20 23:29 Sertraline 100 Mg Tab PO 200 mg HS CJ Administration Intake and Output 07/08/20 07/09/20 07/09/20 22:59 06:59 14:59 Intake Total 650 Output Total 600 Balance 650 -600 Intake: Oral 650 Output: Urine 600 Other: Voiding Method Toilet # Voids 3 Weight 72.121 kg 07/09/20 07:09 07/09/20 07:09
--- NOTE | 2020-07-09 11:32 | ECHOF ---
Referral Reason:dyspnea MEASUREMENTS -------- HEIGHT: 154.9 cm WEIGHT: 72.1 kg BP: RVIDd: 3.1 cm (< 3.3) IVSd: 1.1 cm (0.6 - 1.1) LVIDd: 4.0 cm (3.9 - 5.3) LVPWd: 1.1 cm (0.6 - 1.1) IVSs: 1.5 cm LVIDs: 2.7 cm LVPWs: 1.3 cm LA Diam: 3.0 cm (2.7 - 3.8) LAESV Index (A-L): 24.25 ml/m Ao Diam: 3.0 cm (2.0 - 3.7) AV Cusp: 1.8 cm (1.5 - 2.6) MV EXCURSION: 14.664 mm (> 18.000) MV EF SLOPE: 66 mm/s (70 - 150) EPSS: 0.3 cm MV E Wilfred: 0.92 m/s MV DecT: 199 ms MV A Wilfred: 0.81 m/s MV E/A Ratio: 1.13 AR PHT: 954 ms RAP: 5.00 mmHg RVSP: 24.76 mmHg FINDINGS -------- Sinus rhythm. This was a technically good study. The left ventricular size is normal. There is borderline concentric left ventricular hypertrophy. Overall left ventricular systolic function is normal with, an EF between 60 - 65 %. The right ventricle is normal in size. Normal LA size by volume 22+/-6 ml/m2. The right atrium is normal in size. Interatrial and interventricular septum intact. The aortic valve is trileaflet and appears structurally normal. There is gqgk-hs-rteldytz aortic re gurgitation. Mild mitral annular calcification present. Mild mitral regurgitation is present. Mild tricuspid regurgitation present. Right ventricular systolic pressure is normal at < 35 mmHg. Trace/mild (physiologic) pulmonic regurgitation. The aortic root size is normal. Normal inferior vena cava with normal inspiratory collapse consistent with estimated right atrial pre ssure of 5 mmHg. There is no pericardial effusion. CONCLUSIONS -------- 1. The left ventricular size is normal. 2. There is borderline concentric left ventricular hypertrophy. 3. Overall left ventricular systolic function is normal with, an EF between 60 - 65 %. 4. There is wkxk-ae-ctkwdrbv aortic regurgitation. 5. Mild mitral annular calcification present. 6. Mild mitral regurgitation is present. 7. Mild tricuspid regurgitation present. 8. Trace/mild (physiologic) pulmonic regurgitation. 9. There is no pericardial effusion. LANGUAGE ASSISTANT: Cheryl Garces RDCS
--- NOTE | 2020-07-09 12:10 | P.STRESS ---
- Stress Test Note Stress Test Results/Findings: Exam Performed: NM stress lexiscan cardiolite Exam Date: 07/09/20 Reason for Exam: CP, DANIEL Height: 5 ft 1 in Weight: 72.12 kg Protocol: LEXISCAN CARDIOLITE Stage: NA Duration of Exercise: NA Resting Heart Rate: 51 Resting Blood Pressure: 121/61 Maximum Achieved Heart Rate: 73 Maximum Achieved Blood Pressure: 121/61 85% PMHR: 133 100% PMHR: 157 METS: NA Technologist Comment: Stress Test Results/Findings: This is a 64-year-old female with history of hypercholesteremia, diabetes, family history, being evaluated symptoms of chest pain or shortness of breath. Stress data: Baseline EKG showed sinus rhythm with TN interval and QRS duration. Blood pressure at rest is 120/61 with pulse rate of 51. A standard dose of Lexiscan was infused. EKGs taken during and after infusion did not reveal any changes to suggest ischemia. Final impression: #1. Negative Lexiscan stress test #2. Report on the nuclear images to be given by the radiologist.
--- NOTE | 2020-07-09 12:27 | ECHOS ---
Stress Test Results/Findings: Exam Performed: NM stress lexiscan cardiolite Exam Date: 07/09/20 Reason for Exam: CP, DANIEL Height: 5 ft 1 in Weight: 72.12 kg Protocol: LEXISCAN CARDIOLITE Stage: NA Duration of Exercise: NA Resting Heart Rate: 51 Resting Blood Pressure: 121/61 Maximum Achieved Heart Rate: 73 Maximum Achieved Blood Pressure: 121/61 85% PMHR: 133 100% PMHR: 157 METS: NA Technologist Comment: Stress Test Results/Findings: This is a 64-year-old female with history of hypercholesteremia, diabetes, family history, being evaluated symptoms of chest pain or shortness of breath. Stress data: Baseline EKG showed sinus rhythm with MA interval and QRS duration. Blood pressure at rest is 120/61 with pulse rate of 51. A standard dose of Lexiscan was infused. EKGs taken during and after infusion did not reveal any changes to suggest ischemia. Final impression: #1. Negative Lexiscan stress test #2. Report on the nuclear images to be given by the radiologist. RAMILA
--- NOTE | 2020-07-09 12:50 | NM ---
EXAMINATION TYPE: NM stress lexiscan cardiolite DATE OF EXAM: 07/09/2020 COMPARISON: NONE HISTORY: 64 year-old female chest pain, shortness of breath, difficulty breathing. TECHNIQUE: After the intravenous administration of 10.59 mCi Tc 99m Sestamibi - Cardiolite resting S PECT images acquired 55 minutes post injection. The patient received 0.4mg Lexiscan, 24.4 mCi Tc 99m Sestamibi - Stress images obtained [address] injection FINDINGS: The technologist notes that the patient experienced headache at the 5 minute recovery time point. Rev iew of stress and rest SPECT images demonstrates decreased perfusion along the apical lateral wall on rest images suggesting attenuation artifact no distinct perfusion abnormality. Gated analysis shows an estimated left ventricular ejection fraction of 46 %. TID is calculated at 0.86, within normal l imits. IMPRESSION: Some attenuation artifact along the apical lateral wall. No scintigraphic evidence for reversible ischemia. Further evaluation as indicated given estimated LVEF of 46%.
[2020-07-09 13:13] LABS: Glucose,Whole Blood 224 mg/dL (75-99)
[2020-07-09 16:07] VITALS: PULSE 60; TEMP 98
--- NOTE | 2020-07-09 16:58 | P.DS ---
Providers Date of admission: 07/08/20 20:16 Expected date of discharge: 07/09/20 Attending physician: Curt Jackman MD Consults: 07/08/20 20:15 Consult Physician Urgent Consulting Provider: [facility] Consult Reason/Comments: acute chest pain, acute exertional dyspnea Do you want consulting provider notified?: Yes Primary care physician: Dheeraj Quintanilla Hospital Course: Discharge Diagnosis: Chest pain, negative lexiscan stress test HLD DM II, insulin dependent Fatty liver with elevated LFTs Hospital Course: Patient is a 64-year-old female with a past medical history of diabetes mellitus type 2, anxiety with panic attacks, dyslipidemia with intolerance of statin, and GERD who presented to the ER with complaints of dyspnea on exertion and chest discomfort. Patient reports that her current symptoms are different than her prior panic attacks. Over the last 2 weeks she's had intermittent substernal chest tightness with and without exertion nonradiating associated with dyspnea and decreased exercise tolerance. She is no longer able to walk from her car into stores without becoming short of breath. Initial evaluation in the ER demonstrated a troponin of less than 0.012, d-dimer of 0.23, for STEMI venous Doppler that was negative, EKG with sinus bradycardia at [address]-T wave changes. Chest x-ray showed normal chest. She was placed in chest pain observation. The remainder of her troponins were negative. She was seen by cardiology and ultimately underwent a Lexiscan stress test. This demonstrated attenuation artifact but no signs of reversible ischemia. She was cleared by cardiology with the plan that if her chest pain worsens or her dyspnea worsens that she is to return with possible need for cardiac catheterization. She will also follow-up with Dr. Yeh on 07/17/20. Of note cholesterol level drawn August 2019 showed a total cholesterol of 397, LDL 273, and triglycerides 397. Patient has a intolerance to statin therapy. She has been taking Lopid. She was given an order to have repeat cholesterol profile obtained. Verbal report was given to her primary care physician Dr. Quintanilla. Patient seen and examined at bedside. Breathing is better, no chest pain, no nausea, no vomiting. We discussed at length that she is or to return to the hospital should her chest pain recur or her breathing worsen. Vital signs reviewed and stable. General: non toxic, no distress, appears at stated age Derm: warm, dry Head: atraumatic, normocephalic, symmetric Eyes: EOMI, no lid lag, anicteric sclera Mouth: no lip lesion, mucus membranes moist Cardiovascular: S1S2 reg, no murmur, positive posterior tibial pulse bilateral, Lungs: CTA bilateral, no rhonchi, no rales , no accessory muscle use Abdominal: soft, nontender to palpation, no guarding, no appreciable organomegaly Ext: no gross muscle atrophy, no edema, no contractures Neuro: CN II-XI grossly intact, no focal neuro deficits Psych: Alert, oriented, appropriate affect A total of 35 minutes of time were spent preparing this complex discharge summary . Patient Condition at Discharge: Stable Plan - Discharge Summary New Discharge Prescriptions: New Aspirin 81 mg PO DAILY chew Continue Sertraline [Zoloft] 200 mg PO HS Pantoprazole Sodium 40 mg PO AC-BID Cholecalciferol [Vitamin D3 (25 Mcg = 1000 Iu)] 4,000 unit PO DAILY Rbp-Ialt-Togqe Acid [-U Capsule (formulary)] 1 cap PO DAILY Insuln Asp Prt/Insulin Aspart [NovoLOG MIX 70-30 VIAL] 30 unit SQ AC-BID Insulin NPH Hum/Reg Insulin Hm [NovoLIN 70-30 100 UNIT/ML VIAL] See Protocol SQ AC-BID Gemfibrozil [Lopid] 600 mg PO AC-BID Discharge Medication List Pantoprazole Sodium 40 mg PO AC-BID 01/19/15 [History] Sertraline [Zoloft] 200 mg PO HS 01/19/15 [History] Cholecalciferol [Vitamin D3 (25 Mcg = 1000 Iu)] 4,000 unit PO DAILY 11/22/18 [History] Gemfibrozil [Lopid] 600 mg PO AC-BID 07/08/20 [History] Insulin NPH Hum/Reg Insulin Hm [NovoLIN 70-30 100 UNIT/ML VIAL] See Protocol SQ AC-BID 07/08/20 [History] Insuln Asp Prt/Insulin Aspart [NovoLOG MIX 70-30 VIAL] 30 unit SQ AC-BID 07/08/20 [History] Tjp-Bssi-Rhmkv Acid [-U Capsule (formulary)] 1 cap PO DAILY 07/08/20 [History] Aspirin 81 mg PO DAILY chew 07/09/20 [Rx] Follow up Appointment(s)/Referral(s): Ramos Yeh MD [STAFF PHYSICIAN] - 07/17/20 2:15 pm Dheeraj Quintanilla [Primary Care Provider] - 1-2 days Ambulatory/Diagnostic Orders: Miscellaneous Lab Order [LAB.AMB] Location: None Selected Patient Instructions/Handouts: Regadenoson (By injection), Nuclear Stress Test (DC) Activity/Diet/Wound Care/Special Instructions: Activity: as tolerated Diet: heart healthy, low cholesterol Special Instructions: Return with chest pain, worsening shortness of breath Discharge Disposition: HOME SELF-CARE
[2020-07-09 17:36] LABS: Hemoglobin A1C 7.4 % (4.0-6.0)
== END 2020-07-09 16:45 | disposition home or self-care (01) ==
LOC: EC 16:48 → 3NCARDOBS 20:16
PROVIDERS: ADMIT Family Medicine; ATTEND Family Medicine
DX: R06.02 Shortness of breath (principal); R07.89 Other chest pain; E11.9 Type 2 diabetes mellitus without complications; E66.9 Obesity, unspecified; E78.5 Hyperlipidemia, unspecified; F32.9 Major depressive disorder, single episode, unspecified; F41.0 Panic disorder [episodic paroxysmal anxiety]; K21.9 Gastro-esophageal reflux disease without esophagitis; K76.0 Fatty (change of) liver, not elsewhere classified; Z68.30 Body mass index [BMI] 30.0-30.9, adult; Z79.4 Long term (current) use of insulin; Z79.82 Long term (current) use of aspirin; Z79.899 Other long term (current) drug therapy; Z87.891 Personal history of nicotine dependence
CPT/HCPCS: 96372 ×2; 99285; 36415; 93005; 93017; 93306; 85379; 83880; 80053 ×2; 83605; 83735; 84484 ×2; 85025 ×2; 85610; 85730; 83036; 71046; 93970; 78452; G0378 ×2; A9500; J1644 ×2; J2785

== ENCOUNTER → 2020-07-15 | Outpatient (CLI) | payer MEDICARE ==
[2020-07-15 15:00] LABS: Chol/HDL Ratio 5.9; LDL Cholesterol,Calculated 177.4 mg/dL (0.0-131.0); VLDL Calculation 28.6 mg/dL (5.00-40.00)
== END | disposition home or self-care (01) ==
LOC: LABWHC1 08:26
PROVIDERS: ATTEND Internal Medicine
DX: E78.00 Pure hypercholesterolemia, unspecified (principal)
CPT/HCPCS: 36415; 80061

== ENCOUNTER → 2020-09-24 | Outpatient (CLI) | payer BC, MEDICARE ==
--- NOTE | 2020-09-25 14:32 | MM ---
Reason for exam: screening (asymptomatic). Last mammogram was performed 2 years and 5 months ago. History: Patient is postmenopausal. Family history of breast cancer in paternal cousin at age 40. Benign stereotactic core biopsy of the right breast, December 21, 1998. Core biopsy of the right breast. Took estrogen for 2 years. Physical Findings: A clinical breast exam by your physician is recommended on an annual basis and results should be correlated with mammographic findings. MG 3D Screening Mammo W/Cad Bilateral CC and MLO view(s) were taken. Prior study comparison: April 30, 2018, bilateral MG screening mammo w CAD. February 27, 2017, bilateral MG screening mammo w CAD. There are scattered fibroglandular densities. There are benign appearing round calcifications in the left breast. There is no discrete abnormality. ASSESSMENT: Benign, BI-RAD 2 RECOMMENDATION: Routine screening mammogram of both breasts in 1 year.
== END | disposition home or self-care (01) ==
LOC: RADMAMWWP 16:36
PROVIDERS: ATTEND Family Medicine
DX: Z12.31 Encounter for screening mammogram for malignant neoplasm of breast (principal)
CPT/HCPCS: 77063; 77067

== ENCOUNTER → 2020-10-20 | Outpatient (CLI) | payer MEDICARE ==
--- NOTE | 2020-10-20 09:13 | US ---
EXAMINATION TYPE: US liver DATE OF EXAM: 10/20/2020 COMPARISON: CT 11/22/2018, US 01/27/2015 CLINICAL HISTORY: R79.89 elevated lft. GB surgically absent. Patient states she had a liver bx in the that showed fatty liver disease EXAM MEASUREMENTS: Liver Length: 16.4 cm Gallbladder Wall: Surgically absent cm CBD: 0.5 cm Right Kidney: 9.9 x 3.8 x 3.8 cm Pancreas: Obscured by bowel gas Liver: Coarse, heterogeneous echotexture Gallbladder: Surgically absent Evidence for sonographic Nance's sign: No CBD: wnl as visualized, obscured by bowel gas Right Kidney: No hydronephrosis or masses seen Visualized pancreas within normal limits on initial 2 images saved. Visualized liver is slightly hete rogeneous in appearance without intrahepatic mass or ductal dilatation identified. Gallbladder noted surgically absent. No right-sided hydronephrosis. IMPRESSION: No worrisome focal intrahepatic mass or intrahepatic ductal dilatation.
== END | disposition home or self-care (01) ==
LOC: RADUSWWP 08:15
PROVIDERS: ATTEND Family Medicine
DX: R79.89 Other specified abnormal findings of blood chemistry (principal)
CPT/HCPCS: 76705

== ENCOUNTER 2021-01-27 10:16 | Observation (INO) | payer MEDICARE ==
[2021-01-27] MEDS ORDERED: SODIUM CHLORIDE 0.9% 1,000 ML IV STA (11:09)
[2021-01-27] MEDS ORDERED: KETOROLAC 15 MG/ML 1 ML VIAL IVP STA (11:09)
[2021-01-27] MEDS ORDERED: ONDANSETRON 4 MG/2 ML VIAL IVP STA (11:09)
--- NOTE | 2021-01-27 11:12 | ED ---
Abdominal Pain HPI - General Chief Complaint: Abdominal Pain Stated Complaint: rt sided pain, poss appy Time Seen by Provider: 01/27/21 10:52 Source: patient, RN notes reviewed Mode of arrival: ambulatory Limitations: no limitations - History of Present Illness Initial Comments: This is a 65-year-old female presents emergency Department chief complaint of right-sided abdominal pain. Patient states started over the last 24 hours has gradually worsened. Patient seen by PCP today center and rule out appendicitis. Patient had a prior cholecystomy, hysterectomy. Patient's had slight nausea, decrease appetite no diarrhea no constipation no dysuria no hematuria denies any fevers or chills. Patient states it is worse when she walks or bends over. Denies any back pain, flank pain no chest pain or shortness breath - Related Data Home Medications Medication Instructions Recorded Confirmed Pantoprazole Sodium 40 mg PO AC-BID 01/19/15 01/27/21 Sertraline [Zoloft] 200 mg PO HS 01/19/15 01/27/21 Cholecalciferol [Vitamin D3 (25 5,000 unit PO DAILY 11/22/18 01/27/21 Mcg = 1000 Iu)] Gemfibrozil [Lopid] 600 mg PO AC-BID 07/08/20 01/27/21 Oqu-Bwnm-Wpmse Acid 1 cap PO DAILY 07/08/20 01/27/21 [-U Capsule (formulary)] Aspirin 81 mg PO HS 01/27/21 01/27/21 Insulin NPH Hum/Reg Insulin Hm 30 units SQ BID 01/27/21 01/27/21 [Relion Novolin 70-30 Flexpen] Loratadine [Claritin] 10 mg PO DAILY 01/27/21 01/27/21 Allergies Allergy/AdvReac Type Severity Reaction Status Date / Time latex Allergy Swelling Verified 01/27/21 11:52 milk Allergy Cough Verified 01/27/21 11:52 Yeast Allergy severe Verified 01/27/21 11:52 coughing,n/v Vchbukk-Uvx-Fse Reductase AdvReac Muscle pain Verified 01/27/21 11:52 Inhibitor Review of Systems ROS Statement: Those systems with pertinent positive or pertinent negative responses have been documented in the HPI. ROS Other: All systems not noted in ROS Statement are negative. 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, HX FATTY LIVER & ELEVATED LIVER ENZYMES History of Any Multi-Drug Resistant Organisms: None Reported Past Surgical History: Section, Cholecystectomy, Hysterectomy, Orthopedic Surgery Additional Past Surgical History / Comment(s): BILAT-CTR Past Anesthesia/Blood Transfusion Reactions: Previous Problems w/ Anesthesia Additional Past Anesthesia/Blood Transfusion Reaction / Comment(s): SLOW TO WAKE UP FROM ANESTHESIA,no problems with prior blood transfusions Past Psychological History: Anxiety, Depression, Panic Disorder Smoking Status: Former smoker Past Alcohol Use History: Rare Past Drug Use History: None Reported - Past Family History Father Family Medical History: Dementia Mother Family Medical History: No Reported History General Exam Limitations: no limitations General appearance: alert, in no apparent distress Head exam: Present: atraumatic, normocephalic, normal inspection Eye exam: Present: normal appearance, PERRL, EOMI. Absent: scleral icterus, conjunctival injection, periorbital swelling ENT exam: Present: normal exam, normal oropharynx, mucous membranes moist Neck exam: Present: normal inspection, full ROM. Absent: tenderness, meningismus, lymphadenopathy Respiratory exam: Present: normal lung sounds bilaterally. Absent: respiratory distress, wheezes, rales, rhonchi, stridor Cardiovascular Exam: Present: regular rate, normal rhythm, normal heart sounds. Absent: systolic murmur, diastolic murmur, rubs, gallop, clicks GI/Abdominal exam: Present: soft, tenderness (Moderate lower quadrant), normal bowel sounds. Absent: distended, guarding, rebound, rigid Back exam: Absent: CVA tenderness (R), CVA tenderness (L) Neurological exam: Present: alert Skin exam: Present: warm, dry, intact, normal color. Absent: rash Course Vital Signs 01/27/21 01/27/21 10:43 12:26 Temperature 97.9 F Pulse Rate 69 62 Respiratory 18 18 Rate Blood Pressure 108/57 105/55 O2 Sat by Pulse 96 96 Oximetry Medical Decision Making - Medical Decision Making Case discussed with Dr. Su patient will be admitted on IV antibiotics. is pending surgery. I did call radiologist regarding dictated report which said acute diverticulitis this was an anterior and will be corrected by radiologist for acute appendicitis. - Lab Data Result diagrams: 01/27/21 11:38 01/27/21 11:38 Lab Results 01/27/21 01/27/21 01/27/21 Range/Units 11:38 11:38 11:38 WBC 8.8 (3.8-10.6) k/uL RBC 4.55 (3.80-5.40) m/uL Hgb 13.9 (11.4-16.0) gm/dL Hct 40.1 (34.0-46.0) % MCV 88.1 (80.0-100.0) fL MCH 30.4 (25.0-35.0) pg MCHC 34.6 (31.0-37.0) g/dL RDW 13.5 (11.5-15.5) % Plt Count 220 (150-450) k/uL MPV 8.3 Neutrophils % 72 % Lymphocytes % 18 % Monocytes % 6 % Eosinophils % 3 % Basophils % 0 % Neutrophils # 6.4 (1.3-7.7) k/uL Lymphocytes # 1.6 (1.0-4.8) k/uL Monocytes # 0.5 (0-1.0) k/uL Eosinophils # 0.3 (0-0.7) k/uL Basophils # 0.0 (0-0.2) k/uL Sodium 138 (137-145) mmol/L Potassium 4.7 (3.5-5.1) mmol/L Chloride 105 (98-107) mmol/L Carbon Dioxide 26 (22-30) mmol/L Anion Gap 7 mmol/L BUN 18 H (7-17) mg/dL Creatinine 0.92 (0.52-1.04) mg/dL Est GFR (CKD-EPI)AfAm 76 (>60 ml/min/1.73 sqM) Est GFR (CKD-EPI)NonAf 66 (>60 ml/min/1.73 sqM) Glucose 149 H (74-99) mg/dL Plasma Lactic Acid Zeke (0.7-2.0) mmol/L Calcium 10.3 H (8.4-10.2) mg/dL Total Bilirubin 0.6 (0.2-1.3) mg/dL AST 48 H (14-36) U/L ALT 51 H (4-34) U/L Alkaline Phosphatase 76 (38-126) U/L Total Protein 7.4 (6.3-8.2) g/dL Albumin 4.7 (3.5-5.0) g/dL Amylase 55 (30-110) U/L Lipase 113 (23-300) U/L Urine Color Light Yellow Urine Appearance Clear (Clear) Urine pH 5.5 (5.0-8.0) Ur Specific Edwards 1.011 (1.001-1.035) Urine Protein Negative (Negative) Urine Glucose (UA) Negative (Negative) Urine Ketones Negative (Negative) Urine Blood Negative (Negative) Urine Nitrite Positive H (Negative) Urine Bilirubin Negative (Negative) Urine Urobilinogen <2.0 (<2.0) mg/dL Ur Leukocyte Esterase Moderate H (Negative) Urine RBC <1 (0-5) /hpf Urine WBC 17 H (0-5) /hpf Ur Squamous Epith Cells 1 (0-4) /hpf Urine Bacteria Rare H (None) /hpf Urine Mucus Rare H (None) /hpf 01/27/21 Range/Units 11:38 WBC (3.8-10.6) k/uL RBC (3.80-5.40) m/uL Hgb (11.4-16.0) gm/dL Hct (34.0-46.0) % MCV (80.0-100.0) fL MCH (25.0-35.0) pg MCHC (31.0-37.0) g/dL RDW (11.5-15.5) % Plt Count (150-450) k/uL MPV Neutrophils % % Lymphocytes % % Monocytes % % Eosinophils % % Basophils % % Neutrophils # (1.3-7.7) k/uL Lymphocytes # (1.0-4.8) k/uL Monocytes # (0-1.0) k/uL Eosinophils # (0-0.7) k/uL Basophils # (0-0.2) k/uL Sodium (137-145) mmol/L Potassium (3.5-5.1) mmol/L Chloride (98-107) mmol/L Carbon Dioxide (22-30) mmol/L Anion Gap mmol/L BUN (7-17) mg/dL Creatinine (0.52-1.04) mg/dL Est GFR (CKD-EPI)AfAm (>60 ml/min/1.73 sqM) Est GFR (CKD-EPI)NonAf (>60 ml/min/1.73 sqM) Glucose (74-99) mg/dL Plasma Lactic Acid Zeke 0.9 (0.7-2.0) mmol/L Calcium (8.4-10.2) mg/dL Total Bilirubin (0.2-1.3) mg/dL AST (14-36) U/L ALT (4-34) U/L Alkaline Phosphatase (38-126) U/L Total Protein (6.3-8.2) g/dL Albumin (3.5-5.0) g/dL Amylase (30-110) U/L Lipase (23-300) U/L Urine Color Urine Appearance (Clear) Urine pH (5.0-8.0) Ur Specific Edwards (1.001-1.035) Urine Protein (Negative) Urine Glucose (UA) (Negative) Urine Ketones (Negative) Urine Blood (Negative) Urine Nitrite (Negative) Urine Bilirubin (Negative) Urine Urobilinogen (<2.0) mg/dL Ur Leukocyte Esterase (Negative) Urine RBC (0-5) /hpf Urine WBC (0-5) /hpf Ur Squamous Epith Cells (0-4) /hpf Urine Bacteria (None) /hpf Urine Mucus (None) /hpf Disposition Clinical Impression: Acute appendicitis, UTI (urinary tract infection) Disposition: ADMITTED IP TO THIS HOSP Condition: Stable Referrals: Dheeraj Quintanilla [Primary Care Provider] - 1-2 days
[2021-01-27 12:01] LABS: Appearance,Urine Clear (Clear); Bacteria,Urine Rare /hpf; Bilirubin,Urine Negative (Negative); Blood,Urine Negative (Negative); Color,Urine Light Yellow; Glucose,Urine (UA) Negative (Negative); Ketones,Urine Negative (Negative); Leukocyte Esterase,Urine Moderate (Negative); Mucus,Urine Rare /hpf; Nitrite,Urine Positive (Negative); PH, Urine 5.5 (5.0-8.0); Protein,Urine Negative (Negative); RBC,Urine <1 /hpf (0-5); Specific Gravity,Urine 1.011 (1.001-1.035); Squamous Epithelial Cell,Urine 1 /hpf (0-4); Urobilinogen,Urine <2.0 mg/dL (<2.0); WBC,Urine 17 /hpf (0-5)
[2021-01-27 12:09] LABS: Basophils % (A) 0 %; Eosinophils # (A) 0.3 k/uL (0-0.7); Eosinophils % (A) 3 %; HCT 40.1 % (34.0-46.0); HGB 13.9 gm/dL (11.4-16.0); Lymphocytes # (A) 1.6 k/uL (1.0-4.8); Lymphocytes % (A) 18 %; MCH 30.4 pg (25.0-35.0); MCHC 34.6 g/dL (31.0-37.0); MCV 88.1 fL (80.0-100.0); Mean Platelet Volume 8.3; Monocytes # (A) 0.5 k/uL (0-1.0); Monocytes % (A) 6 %; Neutrophils # (A) 6.4 k/uL (1.3-7.7); Neutrophils % (A) 72 %; Platelet Count 220 k/uL (150-450); RBC 4.55 m/uL (3.80-5.40); RDW 13.5 % (11.5-15.5); WBC 8.8 k/uL (3.8-10.6)
[2021-01-27 12:24] LABS: Albumin 4.7 g/dL (3.5-5.0); Calcium 10.3 mg/dL (8.4-10.2); Potassium 4.7 mmol/L (3.5-5.1); Total Bilirubin 0.6 mg/dL (0.2-1.3); Total Protein 7.4 g/dL (6.3-8.2)
--- NOTE | 2021-01-27 13:12 | CT ---
EXAMINATION TYPE: CT abdomen pelvis w con DATE OF EXAM: 01/27/2021 COMPARISON: 11/22/2018 HISTORY: 65-year-old female RLQ pain with nausea. TECHNIQUE: Contiguous axial scanning of the abdomen and pelvis following administration of 100 ml Iso ktae 300 IV contrast. Delayed images through the kidneys and coronal/sagittal reconstructions perform ed. CT DLP: 994.7 mGycm Automated exposure control for dose reduction was used. FINDINGS: Heart normal size without pericardial effusion. Dependent atelectasis in the visualized lower lungs. Small hiatal hernia. Liver mildly enlarged at 18.6 cm. Slightly diminished attenuation of the hepatic parenchyma suggestin g fatty infiltration. Portal venous system is patent no biliary ductal dilatation. Cholecystectomy clips. Tiny diverticulum of the duodenum projecting into the pancreatic head region c ontaining a focus of air. Adrenal glands, kidneys, and spleen appear within normal limits. There is very vague hypodensity measuring approximately 1.3 cm in the region of the pancreatic head m ore pronounced on the delayed kidney images, refer to axial image 26. This may be artifactual. Precau tionary follow up recommended to exclude a subtle early underlying lesion. No dilated small bowel. No mesenteric or retroperitoneal lymphadenopathy. There is thickening with fluid distention and inflammatory change involving the appendix. The appendi x is dilated up to 1.1 cm. No abscess. No free air or free fluid. Scattered [id number]-ul-[id number] stool. Bladder distended. Pelvic phleboliths. Uterus surgically absent. Neither ovary is clearly visualized. No abnormal fluid collection in the pelvis or pelvic lymphadenopathy. Bones: A round, circumscribed, partially sclerotic lesion within the medial left iliac bone is unchan ged from 2019 suggesting a benign etiology. Mild degenerative change at the hips. Mild degenerative d isc disease thoracic lumbar junction. IMPRESSION: 1. EXAM POSITIVE FOR ACUTE DIVERTICULITIS WITH MILD TO MODERATE INFLAMMATION. NO ABSCESS OR FREE AIR. 2. A PRECAUTIONARY THREE-MONTH FOLLOW-UP CT IS RECOMMENDED TO REASSESS THE PANCREAS. THERE IS A VAGUE 1.3 CM HYPODENSITY IN THE PANCREATIC HEAD REGION THAT IS PROBABLY ARTIFACTUAL. A SMALL EARLY MASS CA N BE EXCLUDED ON THE FOLLOW-UP. 3. SMALL HIATAL HERNIA. HEPATIC STEATOSIS.
[2021-01-27] MEDS ORDERED: PIPERACILLIN-TAZOBACTAM 3.375 GM in SODIUM CHLORIDE 0.9% 100 ML IVPB STA (13:38)
[2021-01-27] MEDS ORDERED: NALOXONE 0.4 MG/ML 1 ML VIAL IV PRN (15:06)
[2021-01-27] MEDS ORDERED: ONDANSETRON 4 MG/2 ML VIAL IVP PRN (15:06)
[2021-01-27] MEDS: HYDROmorphone 0.5 MG/0.5 ML SYRINGE IVP PRN ×2 (15:31→18:24)
[2021-01-27] MEDS: SODIUM CHLORIDE 0.9% 1,000 ML IV SCH (15:32)
[2021-01-27 18:09] LABS: Glucose,Whole Blood 114 mg/dL (75-99)
--- NOTE | 2021-01-27 19:36 | P.GSHP ---
History of Present Illness H&P Date: 01/27/21 The patient's 65-year-old female who presents to emergency room with over 1 day history right lower quadrant abdominal pain. She initially ports abdominal cramps for potential diarrhea. She presented to the emergency room as her symptoms became worse. She reports past history of cholecystectomy. Diagnostic studies consistent with appendicitis. She reports hunger ABDOMEN: No peritonitis. Rectal quadrant tenderness. LABS: WBC over 17,000. STUDIES: CT of the abdomen and pelvis and reviewed with dilated appendix. No free air. No free fluid. ASSESSMENT: 1. Acute appendicitis 2. Insulin-dependent diabetes type 2 3. Obesity due to excess calories, BMI 30.6 PLAN: 1. Patient reports hunger and may have regular diet prior to midnight. 2. Benefits and risks of robotic appendectomy reviewed. 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, HX FATTY LIVER & ELEVATED LIVER ENZYMES History of Any Multi-Drug Resistant Organisms: None Reported Past Surgical History: Section, Cholecystectomy, Hysterectomy, Orthopedic Surgery Additional Past Surgical History / Comment(s): BILAT-CTR Past Anesthesia/Blood Transfusion Reactions: Previous Problems w/ Anesthesia Additional Past Anesthesia/Blood Transfusion Reaction / Comment(s): SLOW TO WAKE UP FROM ANESTHESIA,no problems with prior blood transfusions Past Psychological History: Anxiety, Depression, Panic Disorder Smoking Status: Never smoker Past Alcohol Use History: Rare Past Drug Use History: None Reported - Past Family History Father Family Medical History: Dementia Mother Family Medical History: No Reported History Medications and Allergies Home Medications Medication Instructions Recorded Confirmed Type Pantoprazole Sodium 40 mg PO AC-BID 01/19/15 01/27/21 History Sertraline [Zoloft] 200 mg PO HS 01/19/15 01/27/21 History Cholecalciferol [Vitamin D3 (25 5,000 unit PO DAILY 11/22/18 01/27/21 History Mcg = 1000 Iu)] Gemfibrozil [Lopid] 600 mg PO AC-BID 07/08/20 01/27/21 History Pan-Cjph-Zfdxe Acid 1 cap PO DAILY 07/08/20 01/27/21 History [-U Capsule (formulary)] Aspirin 81 mg PO HS 01/27/21 01/27/21 History Insulin NPH Hum/Reg Insulin Hm 30 units SQ BID 01/27/21 01/27/21 History [Relion Novolin 70-30 Flexpen] Loratadine [Claritin] 10 mg PO DAILY 01/27/21 01/27/21 History Allergies Allergy/AdvReac Type Severity Reaction Status Date / Time latex Allergy Swelling Verified 01/27/21 11:52 milk Allergy Cough Verified 01/27/21 11:52 Yeast Allergy severe Verified 01/27/21 11:52 coughing,n/v Pjndxkl-Czg-Tiy Reductase AdvReac Muscle pain Verified 01/27/21 11:52 Inhibitor Surgical - Exam Vital Signs Temp Pulse Resp BP Pulse Ox 97.9 F 69 18 108/57 96 01/27/21 10:43 01/27/21 10:43 01/27/21 10:43 01/27/21 10:43 01/27/21 10:43 Results - Labs 01/27/21 11:38 01/27/21 11:38 Abnormal Lab Results - Last 24 Hours (Table) 01/27/21 01/27/21 01/27/21 Range/Units 11:38 11:38 18:08 BUN 18 H (7-17) mg/dL Glucose 149 H (74-99) mg/dL POC Glucose (mg/dL) 114 H (75-99) mg/dL Calcium 10.3 H (8.4-10.2) mg/dL AST 48 H (14-36) U/L ALT 51 H (4-34) U/L Urine Nitrite Positive H (Negative) Ur Leukocyte Esterase Moderate H (Negative) Urine WBC 17 H (0-5) /hpf Urine Bacteria Rare H (None) /hpf Urine Mucus Rare H (None) /hpf Diabetes panel 01/27/21 Range/Units 11:38 Sodium 138 (137-145) mmol/L Potassium 4.7 (3.5-5.1) mmol/L Chloride 105 (98-107) mmol/L Carbon Dioxide 26 (22-30) mmol/L BUN 18 H (7-17) mg/dL Creatinine 0.92 (0.52-1.04) mg/dL Glucose 149 H (74-99) mg/dL Calcium 10.3 H (8.4-10.2) mg/dL AST 48 H (14-36) U/L ALT 51 H (4-34) U/L Alkaline Phosphatase 76 (38-126) U/L Total Protein 7.4 (6.3-8.2) g/dL Albumin 4.7 (3.5-5.0) g/dL Calcium panel 01/27/21 Range/Units 11:38 Calcium 10.3 H (8.4-10.2) mg/dL Albumin 4.7 (3.5-5.0) g/dL Pituitary panel 01/27/21 Range/Units 11:38 Sodium 138 (137-145) mmol/L Potassium 4.7 (3.5-5.1) mmol/L Chloride 105 (98-107) mmol/L Carbon Dioxide 26 (22-30) mmol/L BUN 18 H (7-17) mg/dL Creatinine 0.92 (0.52-1.04) mg/dL Glucose 149 H (74-99) mg/dL Calcium 10.3 H (8.4-10.2) mg/dL Adrenal panel 01/27/21 Range/Units 11:38 Sodium 138 (137-145) mmol/L Potassium 4.7 (3.5-5.1) mmol/L Chloride 105 (98-107) mmol/L Carbon Dioxide 26 (22-30) mmol/L BUN 18 H (7-17) mg/dL Creatinine 0.92 (0.52-1.04) mg/dL Glucose 149 H (74-99) mg/dL Calcium 10.3 H (8.4-10.2) mg/dL Total Bilirubin 0.6 (0.2-1.3) mg/dL AST 48 H (14-36) U/L ALT 51 H (4-34) U/L Alkaline Phosphatase 76 (38-126) U/L Total Protein 7.4 (6.3-8.2) g/dL Albumin 4.7 (3.5-5.0) g/dL
[2021-01-27 22:14] LABS: Glucose,Whole Blood 287 mg/dL (75-99)
[2021-01-27] MEDS: INSULIN ASPART (NovoLOG) 100 UNIT/ML VIAL SQ SCH (22:22)
[2021-01-28] MEDS: INSULN ASP PRT/INSULIN ASPART 100 UNIT/ML 10 ML VIAL SQ SCH ×3 (00:35→17:09)
[2021-01-28] MEDS: SERTRALINE 100 MG TAB PO SCH ×3 (00:35→22:13)
[2021-01-28] MEDS: ASPIRIN 81 MG PO SCH ×3 (00:36→21:50)
[2021-01-28] MEDS: SODIUM CHLORIDE 0.9% 1,000 ML IV SCH ×3 (00:48→20:09)
[2021-01-28] MEDS: PIPERACILLIN-TAZOBACTAM 3.375 GM in SODIUM CHLORIDE 0.9% 100 ML IVPB SCH ×4 (00:49→23:30)
[2021-01-28 01:07] LABS: Glucose,Whole Blood 248 mg/dL (75-99)
[2021-01-28 06:57] LABS: Glucose,Whole Blood 175 mg/dL (75-99)
[2021-01-28] MEDS: INSULIN ASPART (NovoLOG) 100 UNIT/ML VIAL SQ SCH ×4 (06:57→21:51)
[2021-01-28] MEDS: HYDROmorphone 0.5 MG/0.5 ML SYRINGE IVP PRN ×2 (07:00→10:14)
[2021-01-28] MEDS: ACETAMINOPHEN TAB 500 MG TAB PO SCH ×3 (07:16→21:50)
[2021-01-28] MEDS: PANTOPRAZOLE 40 MG TABLET PO SCH ×2 (07:46→21:50)
[2021-01-28] MEDS: LORATADINE 10 MG TAB PO SCH (07:49)
[2021-01-28] MEDS: PRENATAL VIT-IRON-FOLIC ACID 1 EACH CAP PO SCH (07:49)
[2021-01-28] MEDS: FENOFIBRATE 160 MG TAB PO SCH (07:49)
[2021-01-28] MEDS ORDERED: HEPARIN SODIUM,PORCINE/PF 5,000 UNIT/0.5 ML SYRINGE SQ PRN (07:53)
[2021-01-28 08:48] LABS: HCT 34.2 % (34.0-46.0); HGB 11.3 gm/dL (11.4-16.0); Lymphocytes % (A) 17 %; MCH 29.9 pg (25.0-35.0); MCV 90.7 fL (80.0-100.0); Mean Platelet Volume 7.7; Monocytes % (A) 5 %; Neutrophils % (A) 74 %; Platelet Count 176 k/uL (150-450); RBC 3.77 m/uL (3.80-5.40); WBC 6.5 k/uL (3.8-10.6)
[2021-01-28 08:49] LABS: Basophils % (A) 0 %; Eosinophils # (A) 0.2 k/uL (0-0.7); Eosinophils % (A) 2 %; Lymphocytes # (A) 1.1 k/uL (1.0-4.8); Monocytes # (A) 0.3 k/uL (0-1.0); Neutrophils # (A) 4.7 k/uL (1.3-7.7)
[2021-01-28 11:40] LABS: Glucose,Whole Blood 130 mg/dL (75-99)
--- NOTE | 2021-01-28 13:24 | P.PN ---
Subjective Progress Note Date: 01/28/21 WBC improved. Will proceed with appendectomy. Objective - Vital Signs Vital signs: Vital Signs Temp 99.2 F 01/28/21 08:15 Pulse 69 01/28/21 08:15 Resp 16 01/28/21 08:15 BP 93/57 01/28/21 08:15 Pulse Ox 95 01/28/21 08:15 Intake & Output 01/27/21 01/28/21 01/28/21 18:59 06:59 18:59 Intake Total 400 Balance 400 Weight 73.482 kg Intake: Oral 400 Other: Voiding Method Toilet # Voids 1 1 1 - Labs CBC & Chem 7: 01/28/21 08:06 01/27/21 11:38 Labs: Abnormal Lab Results - Last 24 Hours (Table) 01/27/21 01/27/21 01/28/21 Range/Units 18:08 22:13 01:05 RBC (3.80-5.40) m/uL Hgb (11.4-16.0) gm/dL POC Glucose (mg/dL) 114 H 287 H 248 H (75-99) mg/dL 01/28/21 01/28/21 01/28/21 Range/Units 06:49 08:06 11:27 RBC 3.77 L (3.80-5.40) m/uL Hgb 11.3 L (11.4-16.0) gm/dL POC Glucose (mg/dL) 175 H 130 H (75-99) mg/dL Microbiology - Last 24 Hours (Table) 01/27/21 11:38 Urine Culture - Preliminary Urine,Voided
[2021-01-28] MEDS ORDERED: SODIUM CHLORIDE 0.9% 1,000 ML IV ONE (15:18)
[2021-01-28] MEDS ORDERED: IV FLUID CONTINUATION 1,000 ML IV ONE (15:50)
[2021-01-28 16:07] LABS: Glucose,Whole Blood 107 mg/dL (75-99)
[2021-01-28] MEDS ORDERED: ONDANSETRON 4 MG/2 ML VIAL IVP ONE (16:28)
[2021-01-28] MEDS ORDERED: DEXAMETHASONE SOD PHOSPHATE 4 MG/ML 1 ML VIAL IVP ONE (16:29)
[2021-01-28] MEDS ORDERED: LACTATED RINGERS 1,000 ML IV ONE (16:33)
[2021-01-28 16:36] VITALS: RESP 16
[2021-01-28] MEDS ORDERED: SUCCINYLCHOLINE CHLORIDE 100 MG/5 ML SYR IV ONE (17:42)
[2021-01-28] MEDS ORDERED: LIDOCAINE 1% INJ 10MG/ML (20 ML MDV) ONE (17:42)
[2021-01-28] MEDS ORDERED: GLYCOPYRROLATE 0.2 MG/ML 2 ML VIAL ONE (17:42)
[2021-01-28] MEDS ORDERED: ROCURONIUM 10 MG/ML (5 ML VIAL) IV ONE (17:42)
[2021-01-28] MEDS ORDERED: MIDAZOLAM 2 MG/2 ML VIAL ONE (17:42)
[2021-01-28] MEDS ORDERED: NEOSTIGMINE 1 MG/ML 10 ML VIAL ONE (17:42)
[2021-01-28] MEDS ORDERED: PROPOFOL 10 MG/ML 20 ML VIAL IV ONE (17:42)
[2021-01-28] MEDS ORDERED: fentaNYL (PF) 50 MCG/ML 2 ML AMP ONE (17:42)
[2021-01-28] MEDS ORDERED: BUPIVACAINE-EPI 0.5%-1:200,000 10 ML VIAL SQ ONE (18:15)
--- NOTE | 2021-01-28 19:27 | P.OP ---
Date of Procedure: 01/28/21 Description of Procedure: SURGEON: CASEY WHITAKER MD Preoperative Diagnosis: 1. Acute appendicitis 2. Diabetes type 2, insulin-dependent 3. Gastroesophageal reflux disease 4. Depressive disorder 5. Generalized anxiety disorder 6. Fatty liver disease 7. History of multiple abdominal surgeries Postoperative Diagnosis: 1. Acute appendicitis 2. Diabetes type 2, insulin-dependent 3. Gastroesophageal reflux disease 4. Depressive disorder 5. Generalized anxiety disorder 6. Fatty liver diseas 7. Incarcerated lower abdominal incisional hernia with peritoneal adhesion Procedure(s) Performed: 1. Robotic-assisted daVinci Xi laparoscopic reduction of incarcerated incisional hernia and lysis of adhesion 2. Robotic-assisted daVinci Xi laparoscopic appendectomy Anesthesia: GETA, local Estimated Blood Loss (ml): 5 Pathology: other (appendix) Condition: stable Disposition: floor Operative Findings: 1. Acute appendicitis without rupture with periappendicitis 2. Terminal ileum unremarkable 3. Cecum unremarkable 4. Indirect inguinal hernia, 5 mm 5. Thickened gallbladder wall INDICATIONS: The patient is a 65-year-old male who presents with acute appendicitis. Benefits and risks, including infection, open surgery, and bleeding for additional surgery was discussed at length. Informed consent was obtained. All questions of the patient and family were answered. DESCRIPTION: The patient was transferred to the operating room and placed in supine position. The patient had previously voided. The abdomen was then prepped and draped in standard sterile fashion as Ioban was placed along the abdomen to minimize any contamination of skin floor. After a timeout protocol was performed, attention was then brought to the left upper quadrant whereby a 0 degree 5 mm laparoscopic trocar entry was performed. The abdominal cavity was entered and insufflated to 12 mmHg pressure, which was tolerated well. Diagnostic laparoscopy demonstrated no injury to bowel, viscera or mesentery. Fatty liver disease was identified with hepatomegaly. Next a robotic 8-mm trocar was placed along the left lower quadrant, 10-cm lateral to the midline. A 12 mm port was placed along the left upper quadrant and another 8-mm port left lateral abdominal wall. Ports were placed 8 cm apart from each other including 15-20 cm away from the target anatomy of the right pelvis. The patient was then placed in Trendelenburg position, at least 21 down and right side up at least 7. The robotic da Baldomero XI system was primed and docked from the left side of the patient. Using atraumatic graspers and vessel sealer, the robotic system was docked and primed as described. Instruments were interchanged by the portfolio assistant including graspers, robotic stapler and vessel sealer. Immediately incarcerated incisional hernia of the lower abdomen and greater omentum to the abdominal wall was reduced and lysed of adhesions using vessel sealer. Next, attention was brought to identify the cecum. A systematic view within the abdominal cavity was started with the small bowel which was unremarkable. The base of the cecum was unremarkable. No inguinal hernias were identified. The base of the appendix was dilated and hyperemic. The appendix was dissected free from its surrounding tissues. Blue 45 mm robotic staple loads were fired along the base of the appendix. The staple line was hemostatic. Hemostasis was checked prior to undocking the robot. The robot was undocked. I re-scrubbed into the case. The specimen was removed from the abdominal cavity with an Endo Catch bag through the 12 mm trocar at the left upper quadrant. The port site was closed with 0 Vicryl and Rowdy Lyons. All instruments and pneumoperitoneum were evacuated from the abdominal cavity. Local anesthetic was infiltrated to all wounds for postop analgesia. All incisions were also cleansed with diluted hydrogen peroxide. The incisions were closed with 4-0 Monocryl. Exofin glue was applied to the rest of the skin incisions. The patient had tolerated the procedure well. The patient was extubated successfully. The patient was transferred to the postanesthesia care unit in stable condition.
[2021-01-28 20:19] LABS: Glucose,Whole Blood 187 mg/dL (75-99)
[2021-01-28] MEDS: KETOROLAC 15 MG/ML 1 ML VIAL IVP SCH (23:02)
[2021-01-29] MEDS: ACETAMINOPHEN TAB 500 MG TAB PO SCH ×3 (01:59→11:45)
[2021-01-29] MEDS: BENZOCAINE/MENTHOL LOZENG 1 EACH LOZENGE MUCOUS MEM PRN ×3 (03:48→10:56)
[2021-01-29] MEDS: CALCIUM CARBONATE 500 MG CHEWABLE PO PRN ×2 (03:48→12:48)
[2021-01-29] MEDS: KETOROLAC 15 MG/ML 1 ML VIAL IVP SCH ×2 (05:47→11:45)
[2021-01-29] MEDS: PANTOPRAZOLE 40 MG TABLET PO SCH (06:45)
[2021-01-29 06:51] LABS: Glucose,Whole Blood 309 mg/dL (75-99)
[2021-01-29] MEDS: INSULIN ASPART (NovoLOG) 100 UNIT/ML VIAL SQ SCH ×2 (06:55→12:47)
[2021-01-29] MEDS ORDERED: ENOXAPARIN 30 MG/0.3 ML SYRINGE SQ SCH (09:00)
[2021-01-29] MEDS: INSULN ASP PRT/INSULIN ASPART 100 UNIT/ML 10 ML VIAL SQ SCH (09:17)
[2021-01-29] MEDS: LORATADINE 10 MG TAB PO SCH (09:18)
[2021-01-29] MEDS: PIPERACILLIN-TAZOBACTAM 3.375 GM in SODIUM CHLORIDE 0.9% 100 ML IVPB SCH (09:18)
[2021-01-29] MEDS: FENOFIBRATE 160 MG TAB PO SCH (09:18)
[2021-01-29] MEDS: PRENATAL VIT-IRON-FOLIC ACID 1 EACH CAP PO SCH (09:18)
[2021-01-29] MEDS: SODIUM CHLORIDE 0.9% 1,000 ML IV SCH (09:21)
[2021-01-29 12:24] LABS: Glucose,Whole Blood 192 mg/dL (75-99)
--- NOTE | 2021-01-29 13:45 | P.DS ---
Providers Date of admission: 01/27/21 15:44 Expected date of discharge: 01/29/21 Attending physician: Mallory Navarrete Primary care physician: Dheeraj Quintanilla - Discharge Diagnosis(es) (1) Acute appendicitis Current Visit: Yes Status: Acute (2) Diabetes mellitus type 2, insulin dependent Current Visit: Yes Status: Acute (3) Fatty liver disease, nonalcoholic Current Visit: Yes Status: Acute (4) Hepatomegaly Current Visit: Yes Status: Acute (5) Depressive disorder Current Visit: Yes Status: Acute (6) Anxiety disorder Current Visit: Yes Status: Acute (7) Gastroesophageal reflux Current Visit: Yes Status: Acute (8) Incisional hernia Current Visit: Yes Status: Acute (9) Peritoneal adhesions Current Visit: Yes Status: Acute Hospital Course: Postoperative Diagnosis: 1. Acute appendicitis 2. Diabetes type 2, insulin-dependent 3. Gastroesophageal reflux disease 4. Depressive disorder 5. Generalized anxiety disorder 6. Fatty liver diseas 7. Incarcerated lower abdominal incisional hernia with peritoneal adhesion INDICATIONS: The patient is a 65-year-old female who presented with acute appendicitis. She had additional comorbidities including insulin-dependent diabetes type 2, fatty liver disease, obesity due to excess calories, BMI 30.6. Postoperatively, she was tolerating diet. Pain was controlled. Discharge instructions were reviewed. Follow up in the office in 1 week. Procedures: Procedure(s) Performed: 1. Robotic-assisted daVinci Xi laparoscopic reduction of incarcerated incisional hernia and lysis of adhesion 2. Robotic-assisted daVinci Xi laparoscopic appendectomy Anesthesia: GETA, local Estimated Blood Loss (ml): 5 Pathology: other (appendix) Condition: stable Disposition: floor Operative Findings: 1. Acute appendicitis without rupture with periappendicitis 2. Terminal ileum unremarkable 3. Cecum unremarkable 4. Indirect inguinal hernia, 5 mm 5. Thickened gallbladder wall Patient Condition at Discharge: Good Plan - Discharge Summary Discharge Rx Participant: Yes New Discharge Prescriptions: New Ibuprofen [Motrin] 600 mg PO Q8HR PRN #30 tab PRN Reason: Pain Acetaminophen Tab [Tylenol Tab] 1,000 mg PO Q6HR PRN #30 tablet PRN Reason: Pain Continue Sertraline [Zoloft] 200 mg PO HS Pantoprazole Sodium 40 mg PO AC-BID Cholecalciferol [Vitamin D3 (25 Mcg = 1000 Iu)] 5,000 unit PO DAILY Zbf-Bevy-Deapz Acid [-U Capsule (formulary)] 1 cap PO DAILY Gemfibrozil [Lopid] 600 mg PO AC-BID Insulin NPH Hum/Reg Insulin Hm [Relion Novolin 70-30 Flexpen] 30 units SQ BID Aspirin 81 mg PO HS Loratadine [Claritin] 10 mg PO DAILY Discharge Medication List Pantoprazole Sodium 40 mg PO AC-BID 01/19/15 [History] Sertraline [Zoloft] 200 mg PO HS 01/19/15 [History] Cholecalciferol [Vitamin D3 (25 Mcg = 1000 Iu)] 5,000 unit PO DAILY 11/22/18 [History] Gemfibrozil [Lopid] 600 mg PO AC-BID 07/08/20 [History] Byt-Zfrx-Hgbds Acid [-U Capsule (formulary)] 1 cap PO DAILY 07/08/20 [History] Aspirin 81 mg PO HS 01/27/21 [History] Insulin NPH Hum/Reg Insulin Hm [Relion Novolin 70-30 Flexpen] 30 units SQ BID 01/27/21 [History] Loratadine [Claritin] 10 mg PO DAILY 01/27/21 [History] Acetaminophen Tab [Tylenol Tab] 1,000 mg PO Q6HR PRN #30 tablet 01/29/21 [Rx] Ibuprofen [Motrin] 600 mg PO Q8HR PRN #30 tab 01/29/21 [Rx] Follow up Appointment(s)/Referral(s): Dheeraj Quintanilla [Primary Care Provider] - 1-2 days Patient Instructions/Handouts: Laparoscopic Appendectomy (DC) Activity/Diet/Wound Care/Special Instructions: No lifting over 10 pounds in 2 weeks until February 11. January shower. No bath tub soaks for two weeks until February 11. Diet as tolerated. Use Tylenol, simethicone and ibuprofen or Aleve scheduled for the next 24-48 hours for best pain relief. Use ice along incisions for today to prevent swelling. Discharge Disposition: HOME SELF-CARE
[2021-01-29 15:06] VITALS: BP 98/62; PULSE 67; TEMP 98.1
== END 2021-01-29 14:43 | disposition home or self-care (01) ==
LOC: SUPCPDRO 10:16 → EC 10:16 → 6PED 15:44
PROVIDERS: ADMIT Surgery Plastic and Reconstructive Surgery; ATTEND Surgery Plastic and Reconstructive Surgery
DX: K35.80 Unspecified acute appendicitis (principal); K40.90 Unilateral inguinal hernia, without obstruction or gangrene, not specified as recurrent; E11.9 Type 2 diabetes mellitus without complications; K21.9 Gastro-esophageal reflux disease without esophagitis; F32.9 Major depressive disorder, single episode, unspecified; F41.0 Panic disorder [episodic paroxysmal anxiety]; F41.1 Generalized anxiety disorder; K43.0 Incisional hernia with obstruction, without gangrene; K66.0 Peritoneal adhesions (postprocedural) (postinfection); K76.0 Fatty (change of) liver, not elsewhere classified; E66.09 Other obesity due to excess calories; Z68.30 Body mass index [BMI] 30.0-30.9, adult; K76.9 Liver disease, unspecified; Z20.822 Contact with and (suspected) exposure to COVID-19; Z90.49 Acquired absence of other specified parts of digestive tract; Z90.710 Acquired absence of both cervix and uterus; Z79.899 Other long term (current) drug therapy; Z79.82 Long term (current) use of aspirin; Z79.4 Long term (current) use of insulin; Z91.040 Latex allergy status; Z91.011 Allergy to milk products; Z88.8 Allergy status to other drugs, medicaments and biological substances; Z91.018 Allergy to other foods; Z87.891 Personal history of nicotine dependence; Z81.8 Family history of other mental and behavioral disorders
CPT/HCPCS: 44970; 49655; S2900; 36415; 74177; 80053; 81001; 82150; 83036; 83605; 83690; 85025; 87077; 87086; 87186; 87635; 88304; 96365; 96375; 99285

== ENCOUNTER → 2021-04-22 | Outpatient (CLI) | payer MEDICARE | END | disposition home or self-care (01) | LOC: LABWHC1 12:00 | PROVIDERS: ATTEND Family Medicine | DX: Z20.822 Contact with and (suspected) exposure to COVID-19 (principal); B34.9 Viral infection, unspecified | CPT/HCPCS: U0003; U0005 ==

== ENCOUNTER → 2021-12-28 | Outpatient (CLI) | payer MEDICARE ==
[2021-12-28 19:18] LABS: HGB 13.5 g/dL (12.0-15.0); MCH 28.2 pg (27.0-32.0); MCHC 32.1 g/dL (32.0-37.0); MCV 87.9 fL (80.0-97.0); Mean Platelet Volume 11.9 fL (9.5-12.2); NRBC Per 100 WBC 0 /100 WBCS (0.0-0.0); Platelet Count 185 X 10*3/uL (140-440); RBC 4.78 X 10*6/uL (4.10-5.20); RDW 14.3 % (11.5-14.5); WBC 6.88 X 10*3/uL (4.50-10.00)
[2021-12-28 19:47] LABS: ALT 52 U/L (8-44); AST 44 U/L (13-35); African American GFR (CKD) 63.8 (60.0-200.0); Albumin 4.4 g/dL (3.8-4.9); Albumin/Globulin Ratio 1.73 (1.60-3.17); Alkaline Phosphatase 55 U/L (41-126); BUN/Creat Ratio 16.13 Ratio (12.00-20.00); Blood Urea Nitrogen 17.1 mg/dL (9.0-27.0); Calcium 9.7 mg/dL (8.7-10.3); Carbon Dioxide 28.6 mmol/L (20.0-27.5); Chloride 98 mmol/L (96-109); Chol/HDL Ratio 8.32 Ratio; Globulin 2.5 g/dL (1.6-3.3); Glucose 142 mg/dL (70-110); LDL Cholesterol,Calculated 221.9 mg/dL (0.0-131.0); Non-African American GFR(CKD) 55.1 (60.0-200.0); Potassium 4.8 mmol/L (3.5-5.5); Sodium 136 mmol/L (135-145); Total Protein 6.9 g/dL (6.2-8.2)
[2021-12-28 20:00] LABS: Basophils # (A) 0.06 X 10*3/uL (0.00-0.10); Basophils % (A) 0.9 %; Eosinophils # (A) 0.33 X 10*3/uL (0.04-0.35); Eosinophils % (A) 4.8 %; Immature Grans, Automated 0.3 %; Lymphocytes % (A) 24.7 %; Monocytes # (A) 0.41 X 10*3/uL (0.20-1.00); Neutrophils # (A) 4.36 X 10*3/uL (1.80-7.70); Neutrophils % (A) 63.3 %
[2021-12-28 20:01] LABS: RBC Morphology NORMAL
[2021-12-28 22:31] LABS: Appearance,Urine Clear (Clear); Bilirubin,Urine Negative (Negative); Blood,Urine Negative (Negative); Color,Urine Yellow (Yellow); Ketones,Urine Negative (Negative); Nitrite,Urine Negative (Negative); PH, Urine 7.5 (5.0-8.0); Specific Gravity,Urine 1.012 (1.001-1.030); Urobilinogen,Urine 0.2 (0.2,1.0)
[2021-12-29 07:14] LABS: Microalbumin Creatinine Ratio <30 mg/g Creat (0-30)
== END | disposition home or self-care (01) ==
LOC: LABWHC1 10:51
PROVIDERS: ATTEND Family Medicine
DX: Z00.00 Encounter for general adult medical examination without abnormal findings (principal); E11.9 Type 2 diabetes mellitus without complications; R68.82 Decreased libido; K75.81 Nonalcoholic steatohepatitis (NASH); N89.8 Other specified noninflammatory disorders of vagina
CPT/HCPCS: 36415; 80053; 80061; 81003; 82043; 82570; 84443; 85025

== ENCOUNTER → 2022-05-25 | Outpatient (CLI) | payer MEDICARE ==
[2022-05-25 16:33] LABS: Albumin 4.5 g/dL (3.8-4.9); Albumin/Globulin Ratio 1.73 (1.60-3.17); Anion Gap 12.8 mmol/L (10.00-18.00); BUN/Creat Ratio 17.82 Ratio (12.00-20.00); Blood Urea Nitrogen 19.6 mg/dL (9.0-27.0); Calcium 9.6 mg/dL (8.7-10.3); Carbon Dioxide 27.2 mmol/L (20.0-27.5); Globulin 2.6 g/dL (1.6-3.3); HDL Cholesterol 42.6 mg/dL (40.00-60.00); Non-African American GFR(CKD) 52.6 (60.0-200.0); Potassium 4.7 mmol/L (3.5-5.5); Total Bilirubin 0.3 mg/dL (0.30-1.20); Total Protein 7.1 g/dL (6.2-8.2)
[2022-05-25 16:49] LABS: Chol/HDL Ratio 8.47 Ratio
[2022-05-25 17:23] LABS: Basophils # (A) 0.05 X 10*3/uL (0.00-0.10); Basophils % (A) 0.7 %; Eosinophils # (A) 0.33 X 10*3/uL (0.04-0.35); Eosinophils % (A) 4.9 %; HCT 42.2 % (37.2-46.3); Immature Grans, Automated 0.3 %; Lymphocytes # (A) 1.63 X 10*3/uL (0.90-5.00); Lymphocytes % (A) 24.2 %; MCH 29.2 pg (27.0-32.0); MCHC 33.2 g/dL (32.0-37.0); MCV 87.9 fL (80.0-97.0); Monocytes # (A) 0.47 X 10*3/uL (0.20-1.00); NRBC Per 100 WBC 0 /100 WBCS (0.0-0.0); Neutrophils # (A) 4.24 X 10*3/uL (1.80-7.70); Neutrophils % (A) 62.9 %; Platelet Count 211 X 10*3/uL (140-440); RDW 14.1 % (11.5-14.5); WBC 6.74 X 10*3/uL (4.50-10.00)
== END | disposition home or self-care (01) ==
LOC: LABWHC1 10:08
PROVIDERS: ATTEND Internal Medicine
DX: E11.9 Type 2 diabetes mellitus without complications (principal); E78.5 Hyperlipidemia, unspecified; E55.9 Vitamin D deficiency, unspecified; E53.8 Deficiency of other specified B group vitamins
CPT/HCPCS: 36415; 80053; 80061; 82306; 82607; 82746; 83036; 83721; 83735; 85025

== ENCOUNTER → 2022-06-08 | Outpatient (CLI) | payer MEDICARE ==
--- NOTE | 2022-06-08 09:56 | XR ---
EXAMINATION TYPE: XR shoulder complete LT DATE OF EXAM: 06/08/2022 COMPARISON: NONE HISTORY: Pain TECHNIQUE: Shoulder examined in 3 projections FINDINGS: The humeral head articulates with the glenoid. The acromio-clavicular junction is normal. No acute fractures or dislocations are evident. A follow up study can be performed 7-10 days from acute trauma for continued pain. IMPRESSION: 1. No acute osseous abnormality left shoulder.
--- NOTE | 2022-06-08 09:59 | XR ---
EXAMINATION TYPE: XR hand complete bilateral DATE OF EXAM: 06/08/2022 COMPARISON: None HISTORY: Pain TECHNIQUE: Three-view bilateral hands FINDINGS: No acute fractures or dislocations evident. Soft tissues appear normal. Bilateral hands have mild distal degenerative joint changes. Milder bilateral proximal interphalangea l joint space degenerative changes are present. There is some degenerative change at the carpal metac arpal junctions and greater on the right than the left. IMPRESSION: 1. Diffuse joint space chronic changes bilateral hands
--- NOTE | 2022-06-08 11:32 | BD ---
EXAMINATION TYPE: Axial Bone Density DATE OF EXAM: 06/08/2022 COMPARISON: Prior DEXA bone scan 2017 CLINICAL HISTORY: 66 years year old Female. ICD-10 CODE: [id number], Z780 SCREENING Height: 60.5 Weight: 159.8 FRAX RISK QUESTIONS: Alcohol (3 or more units per day): NO Family History (Parent hip fracture): NO Glucocorticoids (More than 3mos): NO History of Fracture in Adulthood: FOOT Secondary Osteoporosis: 1. Type 1 Diabetes: NO 2. Hyperthyroidism: NO 3. Menopause before 45: NO 4. Malnutrition: NO 5. Chronic liver disease: FATTY LIVER Rheumatoid Arthritis: NO Current Tobacco Use: NO RISK FACTORS HISTORY OF: Hip Fracture (Right/Left): NO Spine Fracture: NO History of Wrist Fracture: NO Surgery to Spine/Hip(right/left)/Wrist (right/left): NO Family History of Osteoporosis: NO Active: YES Diet low in dairy products/other sources of calcium: YES Postmenopausal woman: YES Take estrogen and/or progesterone medications: NO Lost more than 2 inches in height since high school: NO Frequent falls: YES Poor Health: NO Hyperparathyroidism: NO Adrenal Insufficiency: NO MEDICATIONS: Prednisone or other steroids: NO Thyroid Medications: NO Osteoporosis Medications:NO Additional Medications: REFLUX MEDS, DEPRESSION MEDS, VIT D, MULTI VIT EXAM MEASUREMENTS: Bone mineral densitometry was performed using the [employer] System. Bone mineral density as measured about the Lumbar spine is: ----- L1-L4(G/cm2): 1.363 T Score Values are as follows: ----- L1: 1.6 ----- L2: 2.1 ----- L3: 1.5 ----- L4: 1.0 ----- L1-L4: 1.5 Bone mineral density has: DECREASED 3.6 % since study of: 05/08/2018 Bone mineral density about the R hip (g/cm2): 1.177 Bone mineral density about the L hip (g/cm2): 1.139 T Score values are as follows: -----R Neck: 1.0 -----L Neck: 0.7 -----R Total: 2.1 -----L Total: 2.1 Bone mineral density has: DECREASED 3.1 % since study of: 05/08/2018 FRAX%s: The graph provided illustrates a 9.6% chance for a major osteoporotic fx and a 0.2% chance fo r the hips probability for fx in 10 years time. IMPRESSION: Normal (Values between +1 and -1 indicate normal bone mass). Consider repeating this study in 5 year s or sooner if there is some new clinical indication. NOTE: T-SCORE=SD OF THE YOUNG ADULT MEAN.
[2022-06-08 16:01] LABS: African American GFR (CKD) 77.8 (60.0-200.0); BUN/Creat Ratio 25.22 Ratio (12.00-20.00); Blood Urea Nitrogen 22.7 mg/dL (9.0-27.0); Calcium 9.9 mg/dL (8.7-10.3); Non-African American GFR(CKD) 67.1 (60.0-200.0); Potassium 4.5 mmol/L (3.5-5.5)
--- NOTE | 2022-06-09 18:59 | MM ---
Reason for Exam: Screening (asymptomatic). Last mammogram was performed 1 year(s) and 8 month(s) ago. Patient History: Menarche at age 18. First Full-Term at age 29. Left ovary removed at age 54. Right ovary removed at age 54. Hysterectomy at age 54. Postmenopausal. Patient used Estrogen for 2 years. Core Biopsy on the Right side. 12/21/1998, Benign Stereotactic Core Biopsy on the right side. Paternal cousin had breast cancer, age 40. Risk Values: Nancy 5 year model risk: 2.5%. NCI Lifetime model risk: 9.4%. Prior Study Comparison: 02/27/2017 Bilateral Screening Mammogram, [facility]. 04/30/2018 Bilateral Screening Mammogram, [facility]. 09/24/2020 Bilateral Screening Mammogram, [facility]. Tissue Density: There are scattered fibroglandular densities. Findings: Analyzed By CAD. Chordoma is within the right breast. No suspicious groups of microcalcifications, spiculated or lobular masses, architectural distortion or other secondary signs of malignancy are mammographically apparent. Overall Assessment: Benign, BI-RAD 2 Management: Screening Mammogram of both breasts in 1 year. A negative mammogram report should not preclude additional follow up of suspicious palpable abnormalities. Patient should continue monthly self breast exam. A clinical breast exam by your physician is recommended on an annual basis and results should be correlated with mammographic findings. Electronically signed and approved by: Nico Adam D.O. Radiologis
== END | disposition home or self-care (01) ==
LOC: RADMAMWWP 08:14
PROVIDERS: ATTEND Internal Medicine
DX: Z12.31 Encounter for screening mammogram for malignant neoplasm of breast (principal); M25.512 Pain in left shoulder; M19.042 Primary osteoarthritis, left hand; M19.041 Primary osteoarthritis, right hand; Z13.820 Encounter for screening for osteoporosis; Z78.0 Asymptomatic menopausal state; Z80.3 Family history of malignant neoplasm of breast; Z98.890 Other specified postprocedural states
CPT/HCPCS: 77063; 77067; 77080; 80048

== ENCOUNTER → 2022-06-13 | Outpatient (CLI) | payer MEDICARE ==
[2022-06-13 10:13] LABS: Basophils # (A) 0.06 X 10*3/uL (0.00-0.10); Basophils % (A) 0.9 %; Eosinophils # (A) 0.25 X 10*3/uL (0.04-0.35); Eosinophils % (A) 3.7 %; HCT 42.4 % (37.2-46.3); HGB 13.7 g/dL (12.0-15.0); Immature Grans, Automated 0.3 %; Lymphocytes # (A) 2.14 X 10*3/uL (0.90-5.00); Lymphocytes % (A) 32.1 %; MCH 28.5 pg (27.0-32.0); MCHC 32.3 g/dL (32.0-37.0); MCV 88.3 fL (80.0-97.0); Monocytes # (A) 0.39 X 10*3/uL (0.20-1.00); Monocytes % (A) 5.8 %; NRBC Per 100 WBC 0 /100 WBCS (0.0-0.0); Neutrophils # (A) 3.81 X 10*3/uL (1.80-7.70); Neutrophils % (A) 57.2 %; Platelet Count 203 X 10*3/uL (140-440); RDW 14.1 % (11.5-14.5); WBC 6.67 X 10*3/uL (4.50-10.00)
[2022-06-13 10:26] LABS: Carbon Dioxide 31.4 mmol/L (20.0-27.5); Chloride 96 mmol/L (96-109); Glucose 197 mg/dL (70-110); Potassium 4.4 mmol/L (3.5-5.5); Rheumatoid Factor, Qnt <10 IU/mL (0-15); Sodium 132 mmol/L (135-145)
[2022-06-13 10:27] LABS: ALT 40 U/L (8-44); AST 29 U/L (13-35); African American GFR (CKD) 77.8 (60.0-200.0); Albumin 4.3 g/dL (3.8-4.9); Albumin/Globulin Ratio 1.79 (1.60-3.17); Alkaline Phosphatase 60 U/L (41-126); BUN/Creat Ratio 22.89 Ratio (12.00-20.00); Blood Urea Nitrogen 20.6 mg/dL (9.0-27.0); Calcium 9.3 mg/dL (8.7-10.3); Globulin 2.4 g/dL (1.6-3.3); Non-African American GFR(CKD) 67.1 (60.0-200.0); Total Protein 6.7 g/dL (6.2-8.2)
[2022-06-13 13:19] LABS: Centromere Antibody <0.2 AI; Centromere Antibody Interp NEGATIVE (NEGATIVE); Cyclic Citrull Pep IgG Unit <0.5 U/mL; Cyclic Citrullinated Pep IgG NEGATIVE (NEGATIVE); DNA Double-Stranded NEGATIVE (NEGATIVE); Scleroderma SC-70 Ab <0.2 AI
== END | disposition home or self-care (01) ==
LOC: LABWHC1 07:40
PROVIDERS: ATTEND Internal Medicine
DX: M19.041 Primary osteoarthritis, right hand (principal); M19.042 Primary osteoarthritis, left hand
CPT/HCPCS: 36415; 80053; 85025; 86038; 86200; 86225; 86235; 86431

== ENCOUNTER → 2022-07-29 | Outpatient (CLI) | payer MEDICARE ==
--- NOTE | 2022-07-29 16:47 | XR ---
EXAMINATION TYPE: XR chest 2V DATE OF EXAM: 07/29/2022 4:36 PM COMPARISON: Chest radiographs from 06/30/2020 TECHNIQUE: XR chest 2V Frontal and lateral views of the chest. CLINICAL INDICATION:Female, 66 years old with history of R05.9; FINDINGS: Lungs/Pleura: There is no evidence of pleural effusion, focal consolidation, or pneumothorax. Pulmonary vascularity: Unremarkable. Heart/mediastinum: Cardiomediastinal silhouette is unremarkable. Musculoskeletal: No acute osseous pathology. IMPRESSION: No acute cardiopulmonary disease/process.
== END | disposition home or self-care (01) ==
LOC: RADXRMAIN 16:20
PROVIDERS: ATTEND Internal Medicine
DX: R05.9 Cough, unspecified (principal)
CPT/HCPCS: 71046

== ENCOUNTER → 2022-09-12 | Outpatient (CLI) | payer MEDICARE ==
--- NOTE | 2022-09-12 13:02 | CT ---
EXAMINATION TYPE: CT abdomen w con CT DLP: 767.40 mGycm, Automated exposure control for dose reduction was used. DATE OF EXAM: 09/12/2022 12:45 PM COMPARISON: 01/27/2021 CLINICAL INDICATION:Female, 67 years old with history of R93.5 ABN FINDINGS ON DX IMAGING; Abnormal f indings on diagnostic imaging, pt noted some concern regarding pancreas. TECHNIQUE: Axial CT of the abdomen. Sagittal and coronal reformats [facility] Contrast used:70 mL of Isovue 300 with IV Contrast, Oral contrast used: with Oral Contrast FINDINGS: LOWER CHEST: Unremarkable ABDOMEN LIVER: Unremarkable GALLBLADDER AND BILE DUCTS: The gallbladder is surgically absent. PANCREAS: Redemonstration of vague hypodensity within the pancreatic head/neck region not significant ly changed measuring up to 18 mm best appreciated on axial imaging portal venous phase imaging. An le ss well appreciated on delayed imaging. SPLEEN: Unremarkable. ADRENAL GLANDS: Unremarkable. KIDNEYS AND URETERS: No evidence of hydronephrosis or renal calculus. The ureters are unremarkable. STOMACH AND BOWEL: No evidence of bowel obstruction. Second portion duodenal diverticulum. Small hiat al hernia present. Appendix appears surgically absent. PERITONEUM: No evidence of pneumoperitoneum or free fluid. VASCULATURE: No evidence of aortic aneurysm. Scattered atherosclerosis of the arterial vasculature. MUSCULOSKELETAL: No acute osseous abnormalities LYMPH NODES: No gross evidence for lymphadenopathy. SOFT TISSUE/ABDOMINAL WALL: Unremarkable IMPRESSION: 1. Redemonstration of vague indeterminate hypodense area within the pancreatic head neck region when comparing to 01/27/2021. Correlate with serum markers. A MRI pancreatic mass protocol could be perfor med for further characterization soft tissues. 2. Hepatic steatosis. 3. Small hiatal hernia.
== END | disposition home or self-care (01) ==
LOC: RADCTMAIN 11:18
PROVIDERS: ATTEND Internal Medicine
DX: K76.0 Fatty (change of) liver, not elsewhere classified (principal); K44.9 Diaphragmatic hernia without obstruction or gangrene; K86.89 Other specified diseases of pancreas; R93.5 Abnormal findings on diagnostic imaging of other abdominal regions, including retroperitoneum
CPT/HCPCS: 82565; 84520; 74160; 36415; Q9967 ×2

== ENCOUNTER → 2022-09-26 | Outpatient (CLI) | payer MEDICARE ==
--- NOTE | 2022-09-28 07:21 | MR ---
EXAMINATION TYPE: MR pancreas wo/w con DATE OF EXAM: 09/26/2022 6:53 PM INDICATION: Patient age:Female; 67 years old; Reason for study: K86.89 Pancreatic mass. COMPARISON: CT scan abdomen from abdomen 09/12/2022 TECHNIQUE: Multiplanar multi-sequence imaging was performed without contrast. Post contrast imaging was performed. Post IV contrast subtraction images were also submitted for review. IV Contrast: 7.5 cc Gadavist FINDINGS: LOWER CHEST: No gross irregularity. ABDOMEN Liver: Signal dropout on chemical shift of phase imaging. Gallbladder and Bile ducts: Unremarkable. Pancreas: No definitive abnormality of the pancreatic parenchyma the parenchyma appears homogenous. T here is no ductal dilatation. There is some gas projecting of the pancreatic head favored represent d uodenal diverticulum. Spleen: Unremarkable. Adrenal glands: Unremarkable. Kidneys: Unremarkable. Stomach and Bowel: Unremarkable as visualized. Peritoneum: No evidence of pneumoperitoneum, free fluid, or adenopathy. Vasculature: Unremarkable. No aortic aneurysm. Musculoskeletal: The osseous structures appear intact. Abdominal wall: Unremarkable. IMPRESSION: 1. Hypodensity seen on prior CTs is not definitively redemonstrated on MRI, no suspicious masses and no ductal dilation. 2. Hepatic steatosis
== END | disposition home or self-care (01) ==
LOC: RADMRIMAIN 17:59
PROVIDERS: ATTEND Internal Medicine
DX: K76.0 Fatty (change of) liver, not elsewhere classified (principal); K86.9 Disease of pancreas, unspecified
CPT/HCPCS: 74183; A9585

== ENCOUNTER → 2023-02-08 | Outpatient (CLI) | payer MEDICARE ==
--- NOTE | 2023-02-08 18:41 | US ---
EXAMINATION TYPE: US kidneys/renal and bladder DATE OF EXAM: 02/08/2023 COMPARISON: NONE CLINICAL INDICATION: Female, 67 years old with history of N28.9 DISORDER OF KIDNEY AND URETER, UNSPEC IFIED; RENAL INSUFFICIENCY EXAM MEASUREMENTS: Right Kidney: 9.3X4.9X5.9 cm Left Kidney: 10.7X4.5X4.7 cm Right Kidney: No hydronephrosis or masses seen Left Kidney: No hydronephrosis or masses seen Bladder: Partially distended bladder shows no gross abnormality. Bilateral Jets seen: Yes IMPRESSION: No hydronephrosis.
== END | disposition home or self-care (01) ==
LOC: RADUSWWP 12:49
PROVIDERS: ATTEND Internal Medicine
DX: N28.9 Disorder of kidney and ureter, unspecified (principal)
CPT/HCPCS: 76770

== ENCOUNTER 2023-04-27 12:00 | Observation (INO) | payer MEDICARE ==
--- NOTE | 2023-04-27 12:49 | XR ---
EXAMINATION TYPE: XR chest 2V DATE OF EXAM: 04/27/2023 12:44 PM COMPARISON: Chest radiographs from 07/29/2022 TECHNIQUE: XR chest 2V Frontal and lateral views of the chest. CLINICAL INDICATION:Female, 67 years old with history of shortness of breath; FINDINGS: Lungs/Pleura: There is no evidence of pleural effusion, focal consolidation, or pneumothorax. Pulmonary vascularity: Unremarkable. Heart/mediastinum: Cardiomediastinal silhouette is unremarkable. Musculoskeletal: No acute osseous pathology. IMPRESSION: No acute cardiopulmonary disease/process.
[2023-04-27 13:02] LABS: Basophils # (A) 0.1 k/uL (0-0.2); Basophils % (A) 1 %; Eosinophils # (A) 0.4 k/uL (0-0.7); Eosinophils % (A) 5 %; HCT 40.1 % (34.0-46.0); HGB 14.1 gm/dL (11.4-16.0); Lymphocytes # (A) 2.1 k/uL (1.0-4.8); Lymphocytes % (A) 29 %; MCH 30.8 pg (25.0-35.0); MCHC 35.2 g/dL (31.0-37.0); MCV 87.4 fL (80.0-100.0); Mean Platelet Volume 8.1; Monocytes # (A) 0.4 k/uL (0-1.0); Monocytes % (A) 5 %; Neutrophils # (A) 4.2 k/uL (1.3-7.7); Neutrophils % (A) 58 %; Platelet Count 203 k/uL (150-450); RBC 4.59 m/uL (3.80-5.40); WBC 7.2 k/uL (3.8-10.6)
--- NOTE | 2023-04-27 13:13 | ED ---
General Adult HPI - General Source: patient, RN notes reviewed Mode of arrival: ambulatory Limitations: no limitations <Phil Mccormick - Last Filed: 04/27/23 13:07> <Laura Bishop - Last Filed: 04/27/23 16:13> - General Chief complaint: Shortness of Breath Stated complaint: abn ECG Time Seen by Provider: 04/27/23 13:07 - History of Present Illness Initial comments: This a 67-year-old female presents emergency Department with chief complaint of not feeling well. Patient states she went to her PCPs office cut she has felt weak, tired. Patient states she does contribute this is not sleeping well. Patient was found to have a new left bundle amy block on EKG. Patient was sent here for further evaluation. She states she occasionally feels like she can get no air in but denies any chest pain or current shortness of breath no leg swelling but states she's been having leg cramping and pain ever since starting her cholesterol medication month ago. She is a known diabetic (Phil Mccormick) Patient is a pleasant 67-year-old female with history of diabetes, hyperlipidemia, Family history of cardiac disease. She is sent to the ER today for evaluation of EKG changes. Patient reports that earlier in the week she had an episode where she was going to bed at night and she felt like there was a pressure in her chest where she couldn't get enough air. Patient states she felt like she was dying over she sought no care at that time. She reports she just been feeling weak and fatigued and not like herself for the past few days. She saw her primary care today who noted a new left bundle-branch block on EKG, previous EKG was December 2021 and was sinus rhythm without the left bundle-branch block. Given the constellation of symptoms and risk factors patient was advised to come to the ER for further evaluation. Upon arrival patient reports she is feeling well she does have some generalized myalgias and fatigue no chest pain palpitations or shortness of breath at this time. (Laura Bishop) - Related Data Home Medications Medication Instructions Recorded Confirmed Pantoprazole Sodium 40 mg PO AC-BID 01/19/15 01/27/21 Sertraline [Zoloft] 200 mg PO HS 01/19/15 01/27/21 Cholecalciferol [Vitamin D3 (25 5,000 unit PO DAILY 11/22/18 01/27/21 Mcg = 1000 Iu)] Ldr-Twxu-Anvgl Acid 1 cap PO DAILY 07/08/20 01/27/21 [-U Capsule (formulary)] gemfibroziL [Lopid] 600 mg PO AC-BID 07/08/20 01/27/21 Aspirin 81 mg PO HS 01/27/21 01/27/21 Insulin NPH Hum/Reg Insulin Hm 30 units SQ BID 01/27/21 01/27/21 [Relion Novolin 70-30 Flexpen] Loratadine [Claritin] 10 mg PO DAILY 01/27/21 01/27/21 Previous Rx's Medication Instructions Recorded Acetaminophen Tab [Tylenol Tab] 1,000 mg PO Q6HR PRN #30 tablet 01/29/21 Ibuprofen [Motrin] 600 mg PO Q8HR PRN #30 tab 01/29/21 Allergies Allergy/AdvReac Type Severity Reaction Status Date / Time latex Allergy Swelling Verified 04/27/23 12:17 milk Allergy Cough Verified 04/27/23 12:17 Yeast Allergy severe Verified 04/27/23 12:17 coughing,n/v Nqozvcz-ZTF-ShQ Reductase AdvReac Muscle pain Verified 04/27/23 12:17 Inhibitor [Uieakpx-Seh-Bac Reductase Inhibitor] Review of Systems ROS Other: All systems not noted in ROS Statement are negative. <Phil Mccormick M - Last Filed: 04/27/23 13:07> ROS Other: All systems not noted in ROS Statement are negative. <Laura Bishop - Last Filed: 04/27/23 16:13> ROS Statement: Those systems with pertinent positive or pertinent negative responses have been documented in the HPI. 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, HX FATTY LIVER & ELEVATED LIVER ENZYMES, LBBB History of Any Multi-Drug Resistant Organisms: None Reported Past Surgical History: Section, Cholecystectomy, Hysterectomy, Orthopedic Surgery Additional Past Surgical History / Comment(s): BILAT-CTR Past Anesthesia/Blood Transfusion Reactions: Previous Problems w/ Anesthesia Additional Past Anesthesia/Blood Transfusion Reaction / Comment(s): SLOW TO WAKE UP FROM ANESTHESIA,no problems with prior blood transfusions Past Psychological History: Anxiety, Depression, Panic Disorder Smoking Status: Never smoker Past Alcohol Use History: Rare Past Drug Use History: None Reported - Past Family History Father Family Medical History: Dementia Mother Family Medical History: No Reported History <LizPhil lea Jerrod - Last Filed: 04/27/23 13:07> General Exam Limitations: no limitations <Phil Mccormick - Last Filed: 04/27/23 13:07> <Laura Bishop - Last Filed: 04/27/23 16:13> - General Exam Comments Initial Comments: PVisual Physical Exam Vital signs reviewed General: Well-appearing, nontoxic, no acute distress. Head: Normocephalic, atraumatic Eyes: PERRLA, EOMI ENT: Airway patent Chest: Nonlabored breathing Skin: No visual rash, normal skin tone Neuro: Alert and oriented 3 Musculoskeletal: No gross abnormalities (Phil Mccormick) Physical Exam GENERAL: Patient is well-developed and well-nourished. Patient is nontoxic and well-hydrated and is in no distress. HENT: Normocephalic, Atraumatic. EYES: PERRL, EOMI PULMONARY: Unlabored respirations. No audible rales rhonchi or wheezing was noted. CARDIOVASCULAR: There is a regular rate and rhythm without any murmurs gallops or rubs. No lower extremity edema ABDOMEN: Soft and nontender with normal bowel sounds. SKIN: Skin is clear with no lesions or rashes and otherwise unremarkable. : Deferred NEUROLOGIC: Patient is alert and oriented x3. Moving all extremities spontaneously MUSCULOSKELETAL: Normal extremities with adequate strength and full range of motion. No lower extremity swelling or edema. No calf tenderness. PSYCHIATRIC: Normal psychiatric evaluation. (Laura Bishop) Course Vital Signs 04/27/23 04/27/23 04/27/23 12:14 14:37 15:00 Temperature 98.7 F Pulse Rate 71 57 L Respiratory 20 18 20 Rate Blood Pressure 122/76 130/65 O2 Sat by Pulse 98 98 Oximetry EKG Findings - EKG Comments: EKG Findings:: EKG interpreted by me, EKG obtained due to abnormal outpatient EKG. EKG obtained at 1232 rate is 64 rhythm is sinus with a new left bundle branch block. No acute ST elevations or depressions no evidence of acute ischemia or infarction. When compared to EKG from December 2019 to the left bundle branch block is new previous EKG was sinus rhythm. <Laura Bishop P - Last Filed: 04/27/23 16:13> Medical Decision Making - Lab Data Result diagrams: 04/27/23 12:40 <Phil Mccormick M - Last Filed: 04/27/23 13:07> - Lab Data Result diagrams: 04/27/23 12:40 04/27/23 12:40 <Laura Bishop P - Last Filed: 04/27/23 16:13> - Medical Decision Making Was pt. sent in by a medical professional or institution (, PA, SLITTER OPERATOR, urgent care, hospital, or fpc...) When possible be specific @ -Yes, sent by primary care provider Dr. Bustamante Did you speak to anyone other than the patient for history (EMS, parent, family, police, friend...)? What history was obtained from this source @ -No Did you review nursing and triage notes (agree or disagree)? Why? @ -I reviewed and agree with nursing and triage notes Were old charts reviewed (outside hosp., previous admission, EMS record, old EKG, old radiological studies, urgent care reports/EKG's, fpc records)? Report findings @ -[facility] EKGs were reviewed Differential Diagnosis (chest pain, altered mental status, abdominal pain women, abdominal pain men, vaginal bleeding, weakness, fever, dyspnea, syncope, headache, dizziness, GI bleed, back pain, seizure, CVA, palpatations, mental health, musculoskeletal)? @ -Differential Chest Pain: Stable Angina, Unstable Angina, STEMI, NSTEMI Aortic Dissection, Pneumothorax, Musculoskeletal, Esophageal Spasm GERD, Cholecystitis, Pancreatitis, Zoster, this is not meant to be an all-inclusive list. EKG interpreted by me (3pts min.). @ -As above X-rays interpreted by me (1pt min.). @ -No acute process CT interpreted by me (1pt min.). @ -None done U/S interpreted by me (1pt. min.). @ -None done What testing was considered but not performed or refused? (CT, X-rays, U/S, labs)? Why? @ -None What meds were considered but not given or refused? Why? @ -None Did you discuss the management of the patient with other professionals (natalya christian i.e. , PA, SLITTER OPERATOR, lab, RT, psych nurse, public health social worker, atmospheric physics professor, teacher, engineering officer, case management coordinator)? Give summary @ -Care discussed with practice advisor Dr. Rogers Was smoking cessation discussed for >3mins.? @ -No Was critical care preformed (if so, how long)? @ -No Were there social determinants of health that impacted care today? How? (Homelessness, low income, unemployed, alcoholism, drug addiction, transportation, low edu. Level, literacy, decrease access to med. care, longterm, rehab)? @ -No Was there de-escalation of care discussed even if they declined (Discuss DNR or withdrawal of care, Hospice)? DNR status @ -No What co-morbidities impacted this encounter? (DM, HTN, Smoking, COPD, CAD, Cancer, CVA, ARF, Chemo, Hep., AIDS, mental health diagnosis, sleep apnea, morbid obesity)? @ -Diabetes, hyperlipidemia Was patient admitted / discharged? Hospital course, mention meds given and route, prescriptions, significant lab abnormalities, going to OR and other pertinent info. @ -Admit The patient was seen and evaluated, history is obtained from the patient and at bedside as well as review of previous medical record. Patient had an episode earlier in the week laying in bed where she felt like there is pressure in her chest she cannot catch her breath and thought she was dying. She's also had general malaise and body aches since then. Outpatient EKG showed a new left bundle-branch block. EKG here again confirms a left bundle branch block this is new from most recent EKG which was in December 2021. Labs here were unremarkable aside from some mildly elevated creatinine kinase likely related to statin use. Patient care was discussed with practice advisor Dr. Stevenson who recommends patient be admitted for serial troponins and cardiology evaluation, Dr. Gardner accepts the admission. Undiagnosed new problem with uncertain prognosis? @ -No Drug Therapy requiring intensive monitoring for toxicity (Heparin, Nitro, Insulin, Cardizem)? @ -No Were any procedures done? @ -No Diagnosis/symptom? @ -Chest pain, EKG changes Acute, or Chronic, or Acute on Chronic? @ -Acute Uncomplicated (without systemic symptoms) or Complicated (systemic symptoms)? @ -default Side effects of treatment? @ -No Exacerbation, Progression, or Severe Exacerbation? @ -No Poses a threat to life or bodily function? How? (Chest pain, [place], CO, pneumonia, PE, COPD, DKA, ARF, appy, cholecystitis, CVA, Diverticulitis, Homicidal, S uicidal, threat to staff... and all critical care pts) @ -Yes, could be a marker of coronary artery disease or acute coronary syndrome. (Laura Bishop) - Lab Data Lab Results 04/27/23 04/27/23 04/27/23 Range/Units 12:40 12:40 12:40 WBC 7.2 (3.8-10.6) k/uL RBC 4.59 (3.80-5.40) m/uL Hgb 14.1 (11.4-16.0) gm/dL Hct 40.1 (34.0-46.0) % MCV 87.4 (80.0-100.0) fL MCH 30.8 (25.0-35.0) pg MCHC 35.2 (31.0-37.0) g/dL RDW 13.0 (11.5-15.5) % Plt Count 203 (150-450) k/uL MPV 8.1 Neutrophils % 58 % Lymphocytes % 29 % Monocytes % 5 % Eosinophils % 5 % Basophils % 1 % Neutrophils # 4.2 (1.3-7.7) k/uL Lymphocytes # 2.1 (1.0-4.8) k/uL Monocytes # 0.4 (0-1.0) k/uL Eosinophils # 0.4 (0-0.7) k/uL Basophils # 0.1 (0-0.2) k/uL PT 10.0 (9.0-12.0) sec INR 0.9 (<1.2) APTT 22.5 (22.0-30.0) sec Sodium 137 (137-145) mmol/L Potassium 4.7 (3.5-5.1) mmol/L Chloride 103 (98-107) mmol/L Carbon Dioxide 30 (22-30) mmol/L Anion Gap 4 mmol/L BUN 17 (7-17) mg/dL Creatinine 0.87 (0.52-1.04) mg/dL Est GFR (CKD-EPI)AfAm 81 (>60 ml/min/1.73 sqM) Est GFR (CKD-EPI)NonAf 70 (>60 ml/min/1.73 sqM) Glucose 150 H (74-99) mg/dL Calcium 9.6 (8.4-10.2) mg/dL Magnesium 2.0 (1.6-2.3) mg/dL Total Bilirubin 0.5 (0.2-1.3) mg/dL AST 28 (14-36) U/L ALT 29 (4-34) U/L Alkaline Phosphatase 58 (38-126) U/L Creatine Kinase (30-135) U/L Troponin I (0.000-0.034) ng/mL NT-Pro-B Natriuret Pep 41 pg/mL Total Protein 7.2 (6.3-8.2) g/dL Albumin 4.2 (3.5-5.0) g/dL 04/27/23 04/27/23 Range/Units 12:40 12:40 WBC (3.8-10.6) k/uL RBC (3.80-5.40) m/uL Hgb (11.4-16.0) gm/dL Hct (34.0-46.0) % MCV (80.0-100.0) fL MCH (25.0-35.0) pg MCHC (31.0-37.0) g/dL RDW (11.5-15.5) % Plt Count (150-450) k/uL MPV Neutrophils % % Lymphocytes % % Monocytes % % Eosinophils % % Basophils % % Neutrophils # (1.3-7.7) k/uL Lymphocytes # (1.0-4.8) k/uL Monocytes # (0-1.0) k/uL Eosinophils # (0-0.7) k/uL Basophils # (0-0.2) k/uL PT (9.0-12.0) sec INR (<1.2) APTT (22.0-30.0) sec Sodium (137-145) mmol/L Potassium (3.5-5.1) mmol/L Chloride (98-107) mmol/L Carbon Dioxide (22-30) mmol/L Anion Gap mmol/L BUN (7-17) mg/dL Creatinine (0.52-1.04) mg/dL Est GFR (CKD-EPI)AfAm (>60 ml/min/1.73 sqM) Est GFR (CKD-EPI)NonAf (>60 ml/min/1.73 sqM) Glucose (74-99) mg/dL Calcium (8.4-10.2) mg/dL Magnesium (1.6-2.3) mg/dL Total Bilirubin (0.2-1.3) mg/dL AST (14-36) U/L ALT (4-34) U/L Alkaline Phosphatase (38-126) U/L Creatine Kinase 186 H (30-135) U/L Troponin I <0.012 (0.000-0.034) ng/mL NT-Pro-B Natriuret Pep pg/mL Total Protein (6.3-8.2) g/dL Albumin (3.5-5.0) g/dL Disposition <Phil Mccormick M - Last Filed: 04/27/23 13:07> Is patient prescribed a controlled substance at d/c from ED?: No <Laura Bishop P - Last Filed: 04/27/23 16:13> Clinical Impression: Left bundle branch block (LBBB) on electrocardiogram, HLD (hyperlipidemia), Diabetes Disposition: ADMITTED IP TO THIS HOSP Condition: Stable Referrals: Zachariah Stewart MD [Primary Care Provider] - 1-2 days
[2023-04-27 13:26] LABS: ALT 29 U/L (4-34); AST 28 U/L (14-36); African American GFR (CKD) 81 (>60 ml/min/1.73 sqM); Albumin 4.2 g/dL (3.5-5.0); Alkaline Phosphatase 58 U/L (38-126); Anion Gap 4 mmol/L; Blood Urea Nitrogen 17 mg/dL (7-17); Calcium 9.6 mg/dL (8.4-10.2); Carbon Dioxide 30 mmol/L (22-30); Chloride 103 mmol/L (98-107); Glucose 150 mg/dL (74-99); Non-African American GFR(CKD) 70 (>60 ml/min/1.73 sqM); Potassium 4.7 mmol/L (3.5-5.1); Sodium 137 mmol/L (137-145); Total Bilirubin 0.5 mg/dL (0.2-1.3); Total Protein 7.2 g/dL (6.3-8.2)
[2023-04-27 13:28] LABS: INR 0.9 (<1.2); Partial Thromboplastin Time 22.5 sec (22.0-30.0)
[2023-04-27 13:34] LABS: NT-Pro-B-Type Natriuretic Pept 41 pg/mL
[2023-04-27] MEDS ORDERED: ASPIRIN 81 MG PO STA (15:46)
[2023-04-27] MEDS ORDERED: NITROGLYCERIN SL TABS 0.4 MG TAB SUBLINGUAL PRN (15:55)
[2023-04-27] MEDS ORDERED: ZOLPIDEM 5 MG TAB PO PRN (17:30)
[2023-04-27] MEDS ORDERED: KETOROLAC 15 MG/ML 1 ML VIAL IVP PRN (17:30)
[2023-04-27] MEDS ORDERED: NALOXONE 0.4 MG/ML 1 ML VIAL IV PRN (17:41)
[2023-04-27] MEDS ORDERED: ACETAMINOPHEN TAB 325 MG TAB PO PRN (17:41)
[2023-04-27] MEDS ORDERED: HYDROcodone/APAP 5-325MG 1 EACH TAB PO PRN (17:41)
[2023-04-27] MEDS ORDERED: DEXTROSE 50% SYRINGE 50 ML IVP PRN ×2 (17:43)
--- NOTE | 2023-04-27 17:44 | P.HPIM ---
History of Present Illness H&P Date: 04/27/23 Patient is a 67-year-old female with PMH of diabetes mellitus, dyslipidemia, seasonal ALLERGIES, GERD presents the ED for abnormal EKG done at her PCP office. Patient reports fatigue that has been ongoing for many months. She initially associated her symptom to insomnia and difficulty sleeping. She reports sleeping on average about 3 hours every night. Patient reports intermitted pressure like chest pain that has occured maybe 3-4 times in the past 2 weeks. Pain is not related to movement or inspiration. Pain is not related to exertion. She also reports palpitations at times that lasts for about one minute. She is able to walk for one hour without any issues. Denies smoking, alcohol or illicit drugs. She reports family history of ME in her grandfather at 44. Today, she went to go visit her PCP who did an EKG which showed LBBB. Given her above symptoms, he sent her to the ED for evaluation. In the ED, her vital signs were stable. CBC was unremarkable. INR was 0.9. CMP showed glucose 150 and CPK of 186. Troponin was less than 0.012. BNP was 41. Magnesium was 2. Chest x-ray was unremarkable. EKG showed sinus rhythm with left bundle branch block. Patient is admitted for cardiology evaluation. Pertinent positives and negatives as discussed in HPI, a complete review of s ystems was performed and all other systems are negative. General: non toxic, no distress, appears at stated age Derm: warm, dry Head: atraumatic, normocephalic, symmetric Eyes: EOMI, no lid lag, anicteric sclera Cardiovascular: S1S2 reg, no murmur Lungs: CTA bilateral, no rhonchi, no rales , no accessory muscle use Ext: no gross muscle atrophy, no edema, no contractures Neuro: no focal neuro deficits Psych: Alert, oriented, appropriate affect Left bundle branch block on EKG Palpitations Chest pain Insomnia Chronic conditions: Diabetes mellitus, dyslipidemia, seasonal ALLERGIES, GERD Based on my assessment of this patient, this patient meets a high complexity level of care. Patient has an acute diagnosis of chest pain with new LBBB seen on EKG that poses a threat to life or bodily function. Left bundle branch block on EKG: Trend trop/EKG to rule out ACS. Telemetry monitoring. Order Echocardiogram. NPO after MN for possible ischemic workup. Continue ASA 81 mg PO QHS. Palpitations: Workup as above. TSH wnl on 01/2023. Chest pain: Workup as above. Insomnia: Ambien PRN for insomnia. Advised sleep study in the outpatient setting. SCD for DVT prophylaxis. FULL CODE Decision maker: I have reviewed the following customer care consultant notes: I have reviewed the results of the following tests: CBC, CMP, Trop, CXR, BNP I have ordered the following tests: Trop. Echocardiogram. I have discussed the care of this patient with the following independent historian: I have independently interpreted the following test below: EKG as above. 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, HX FATTY LIVER & ELEVATED LIVER ENZYMES, LBBB History of Any Multi-Drug Resistant Organisms: None Reported Past Surgical History: Section, Cholecystectomy, Hysterectomy, Orthopedic Surgery Additional Past Surgical History / Comment(s): BILAT-CTR Past Anesthesia/Blood Transfusion Reactions: Previous Problems w/ Anesthesia Additional Past Anesthesia/Blood Transfusion Reaction / Comment(s): SLOW TO WAKE UP FROM ANESTHESIA,no problems with prior blood transfusions Past Psychological History: Anxiety, Depression, Panic Disorder Smoking Status: Never smoker Past Alcohol Use History: Rare Past Drug Use History: None Reported - Past Family History Father Family Medical History: Dementia Mother Family Medical History: No Reported History Medications and Allergies Home Medications Medication Instructions Recorded Confirmed Type Pantoprazole Sodium 40 mg PO HS 01/19/15 04/27/23 History Aspirin 81 mg PO HS 01/27/21 04/27/23 History Loratadine [Claritin] 10 mg PO HS 01/27/21 04/27/23 History Cholecalciferol [Vitamin D3 (125 125 mcg PO DAILY 04/27/23 04/27/23 History Mcg = 5000 Iu)] Dextrose [Glucose Chew Tab] 2 - 4 gm PO QID PRN 04/27/23 04/27/23 History Insulin NPH Hum/Reg Insulin Hm 24 unit SQ HS 04/27/23 04/27/23 History [Novolin 70-30 100 Unit/ml Vial] Insuln Asp Prt/Insulin Aspart 27 unit SQ DAILY 04/27/23 04/27/23 History [NovoLOG MIX 70-30 VIAL] Magnesium Oxide [Toth] 500 mg PO DAILY 04/27/23 04/27/23 History Multivit with Calcium,Iron,Min 1 tab PO DAILY 04/27/23 04/27/23 History [Women's Multivitamin] Turmeric Root Extract [Turmeric] 500 mg PO HS 04/27/23 04/27/23 History Allergies Allergy/AdvReac Type Severity Reaction Status Date / Time latex Allergy Swelling Verified 04/27/23 16:42 milk Allergy Cough Verified 04/27/23 16:42 Yeast Allergy severe Verified 04/27/23 16:42 coughing,n/v Zflrrpg-KTI-NdG Reductase AdvReac Muscle pain Verified 04/27/23 16:42 Inhibitor [Kjrbcfb-Vop-Ksl Reductase Inhibitor] Physical Exam Vitals: Vital Signs Temp Pulse Resp BP Pulse Ox 04/27/23 17:23 62 18 114/57 99 04/27/23 16:00 57 L 18 99/50 97 04/27/23 15:00 20 04/27/23 14:37 57 L 18 130/65 98 04/27/23 12:14 98.7 F 71 20 122/76 98 Intake and Output 04/27/23 04/27/23 04/27/23 06:59 14:59 22:59 Other: Weight 72.121 kg Results CBC & Chem 7: 04/27/23 12:40 04/27/23 12:40 Labs: Abnormal Lab Results - Last 24 Hours (Table) 04/27/23 04/27/23 Range/Units 12:40 12:40 Glucose 150 H (74-99) mg/dL Creatine Kinase 186 H (30-135) U/L
[2023-04-27 18:53] LABS: Glucose,Whole Blood 201 mg/dL (70-110)
[2023-04-27 20:48] LABS: Glucose,Whole Blood 233 mg/dL (70-110)
[2023-04-27] MEDS: INSULIN ASPART (NovoLOG) 100 UNIT/ML VIAL SQ SCH (20:55)
[2023-04-27] MEDS ORDERED: LORATADINE 10 MG TAB PO SCH (21:00)
[2023-04-27] MEDS ORDERED: PANTOPRAZOLE 40 MG TABLET PO SCH (21:00)
--- NOTE | 2023-04-27 22:56 | CONS ---
CONSULTATION CHIEF COMPLAINT: Chest pain and shortness of breath. HISTORY OF PRESENT ILLNESS: Ariana is a 67-year-old lady with history of insulin-requiring diabetes, who presented to hospital with episodes of chest pain. The predominant symptom is in the form of shortness of breath that has been going on for almost a month, and she has had some vague episodes of chest discomfort, was evaluated at the primary care physician's office, had a left bundle-branch block on her EKG, following which, she was sent to the emergency room. At the time of my evaluation, the patient appears comfortable at rest. Two sets of troponins have been negative. The patient does not have prior history of exertional chest pain, coronary artery disease, or congestive heart failure. She had an echocardiogram in 2019, that revealed structurally normal heart, and a Lexiscan that was unremarkable. Given the new-onset left bundle-branch block and unexplained shortness of breath and chest pain, I am advising the patient to undergo an echocardiogram and Lexiscan for further evaluation. PAST MEDICAL HISTORY: Significant for diabetes. CURRENT MEDICATIONS: Include: 1. Insulin. 2. Turmeric. 3. Vitamin D. 4. Claritin. ALLERGIES: She is allergic to REVIEW OF SYSTEMS: A review of systems has been performed. Pertinents are as documented. PHYSICAL EXAMINATION: GENERAL: Comfortable at rest. VITAL SIGNS: Stable. NECK: There is no jugular venous distention. Carotid upstroke is normal. There is no bruit. CHEST: Reveals good air entry bilaterally. HEART: Reveals first and second heart sounds. No gallop. Has an ejection systolic murmur in the aortic area. ABDOMEN: Soft. EXTREMITIES: Did not reveal any edema. Peripheral pulses are felt. ASSESSMENT: 1. Shortness of breath. 2. Precordial chest pain. 3. New-onset left bundle-branch block. PLAN: I will obtain a 2D echo and Lexiscan in the morning and decide on further course of action based on those test results. MMODL / IJN: [id number] /
[2023-04-28] MEDS ORDERED: REGADENOSON 0.4 MG/5 ML SYRINGE IV PRN ×2 (07:00→08:02)
[2023-04-28] MEDS ORDERED: CAFFEINE CITRATE 60 MG/3 ML VIAL IV PRN ×2 (07:00→08:02)
[2023-04-28] MEDS ORDERED: AMINOPHYLLINE 500 MG/20 ML VIAL IV PRN ×2 (07:00→08:02)
[2023-04-28] MEDS: INSULIN ASPART (NovoLOG) 100 UNIT/ML VIAL SQ SCH ×2 (07:38→12:04)
[2023-04-28 07:40] LABS: Glucose,Whole Blood 140 mg/dL (70-110)
[2023-04-28] MEDS ORDERED: ASPIRIN 325 MG TAB PO SCH (09:00)
[2023-04-28] MEDS ORDERED: ASPIRIN 81 MG PO SCH (09:00)
--- NOTE | 2023-04-28 09:43 | P.PN ---
Subjective HISTORY OF PRESENT ILLNESS: This is a 67-year-old female with a history of diabetes. Patient presented to the hospital with a chief complaint of chest pain. Patient examined this morning in the emergency room. Patient denies any further episodes of chest pain or pressure. She denies shortness of breath. Vital signs are stable. PHYSICAL EXAM: VITAL SIGNS: Reviewed. GENERAL: Well-developed in no acute distress. NECK: Supple. No JVD or thyromegaly LUNGS: Respirations even and unlabored. Lungs essentially clear to auscultation bilaterally. HEART: Regular rate and rhythm. S1 and S2 heard. Systolic murmur noted EXTREMITIES: Normal range of motion. No clubbing or cyanosis. Peripheral pulses intact. No lower extremity edema ASSESSMENT: Chest pain New left bundle branch block Shortness of breath PLAN: An acute coronary event has been ruled out Obtain 2-D echo to assess cardiac structure and function Patient to undergo Lexiscan stress test today If Lexiscan is negative, patient may be discharged home today from a cardiac standpoint Nurse practitioner note has been reviewed by physician. Signing provider agrees with the documented findings, assessment, and plan of care. Objective - Vital Signs Vital signs: Vital Signs Temp 98.5 F 04/28/23 07:40 Pulse 60 04/28/23 07:40 Resp 16 04/28/23 07:40 BP 139/70 04/28/23 07:40 Pulse Ox 98 04/28/23 07:40 FiO2 Intake & Output 04/27/23 04/28/23 04/28/23 18:59 06:59 18:59 Weight 72.121 kg - Labs CBC & Chem 7: 04/27/23 12:40 04/27/23 12:40 Labs: Abnormal Lab Results - Last 24 Hours (Table) 04/27/23 04/27/23 04/27/23 Range/Units 12:40 12:40 18:50 Glucose 150 H (74-99) mg/dL POC Glucose (mg/dL) 201 H (70-110) mg/dL Creatine Kinase 186 H (30-135) U/L 04/27/23 04/28/23 Range/Units 20:42 07:37 Glucose (74-99) mg/dL POC Glucose (mg/dL) 233 H 140 H (70-110) mg/dL Creatine Kinase (30-135) U/L
[2023-04-28 10:12] VITALS: RESP 18
--- NOTE | 2023-04-28 10:50 | CA ---
Transthoracic Echo Report Name: Ariana Morris Age: 67 Gender: F : 1955 Exam Date: 04/28/2023 09:18 Exam Location: [facility] Ht (in): 61 Wt (lb): 159 Ordering Physician: Curt Jackman MD Attending/Referring Phys: Assistant Production Editor Olivia Carrion [facility] Procedure CPT: Indications: LBBB Cardiac Hx: Technical Quality: Fair Contrast 1: Total Dose (mL): Contrast 2: Total Dose (mL): MEASUREMENTS (Male / Female) Normal Values 2D ECHO LV Diastolic Diameter PLAX 4.3 cm 4.2 - 5.9 / 3.9 - 5.3 cm LV Systolic Diameter PLAX 3.3 cm IVS Diastolic Thickness 1.0 cm 0.6 - 1.0 / 0.6 - 0.9 cm LVPW Diastolic Thickness 1.0 cm 0.6 - 1.0 / 0.6 - 0.9 cm LV Relative Wall Thickness 0.5 Ascending Aorta Diameter 3.6 cm M-MODE Aortic Root Diameter MM 3.0 cm LA Systolic Diameter MM 3.5 cm LA Ao Ratio MM 1.2 AV Cusp Separation MM 1.9 cm DOPPLER AV Peak Velocity 145.0 cm/s AV Peak Gradient 8.4 mmHg AV Mean Velocity 99.4 cm/s AV Mean Gradient 4.6 mmHg AV Velocity Time Integral 33.7 cm AI Peak Velocity 356.8 cm/s AI Peak Gradient 50.9 mmHg AI Pressure Half Time 620.4 ms LVOT Peak Velocity 109.2 cm/s LVOT Peak Gradient 4.8 mmHg LVOT Velocity Time Integral 27.0 cm Mitral E Point Velocity 73.0 cm/s Mitral A Point Velocity 100.5 cm/s Mitral E to A Ratio 0.7 MV Deceleration Time 237.4 ms LV E' Lateral Velocity 6.7 cm/s Mitral E to LV E' Lateral Ratio 10.8 LV E' Septal Velocity 3.8 cm/s Mitral E to LV E' Septal Ratio 19.3 TR Peak Velocity 235.4 cm/s TR Peak Gradient 22.2 mmHg Right Atrial Pressure 3.0 mmHg Pulmonary Artery Systolic Pressu 25.2 mmHg Right Ventricular Systolic Press 27.2 mmHg FINDINGS Left Ventricle Left ventricular cavity size normal. Mildly increased left ventricular wall thickness. Normal left ventricular systolic function with no obvious regional wall motion abnormalities. Left ventricular ejection fraction is estimated at 50-55%. Abnormal septal motion consistent with left bundle branch block. Right Ventricle Normal right ventricular size and function. Right Atrium Normal right atrial size. Left Atrium Mild left atrial dilatation. Mitral Valve Structurally normal mitral valve. Moderate thickening/calcification of the posterior mitral valve leaflet. Mild mitral regurgitation. Aortic Valve Trileaflet aortic valve. Mild aortic regurgitation. Tricuspid Valve Structurally normal tricuspid valve. Mild tricuspid regurgitation. Pulmonic Valve Structurally normal pulmonic valve. Mild pulmonic regurgitation. Pericardium No pericardial effusion. Aorta Normal size aortic root and proximal ascending aorta. CONCLUSIONS Normal LV function Atypical septal motion Mitral annular calcification with mild mitral regurgitation Mild aortic regurgitation Previewed by: Dr. Talha Warner MD (Electronically Signed) Final Date: 28 April 2023 10:49
--- NOTE | 2023-04-28 10:59 | CA ---
Lexiscan Nuclear Stress Test Report Name: Ariana Morris Exam Date: 04/28/2023 08:44 Exam Location: [facility] Ht (in): 61 Wt (lb): 159 BSA: 1.71 Ordering Phys: Talha Warner MD Referring Phys: DAX ESPAÑA, Technologist: Bienvenido Lee Age: 67 Gender: F : 1955 Procedure CPT: Indications: Reflex order-Stress test ICD-10 Codes: Patient History: Medications: SEE CHART Meds past 24 hrs: Pretest Chest Pain: STRESS TEST Lexiscan Protocol Exercise Duration (min:sec): 02:[address] Depressions (mm): Angina Score: Hall Score: Resting HR (bpm): 60 Peak HR (bpm): 90 Resting BP (mmHg): 128 / 63 Peak BP (mmHg): 128 / 87 MPHR: 154 Target HR: 131 % MPHR: 58 METS: 1.0 Total Dose: Peak Dose: Atropine: Double Product: 79302 BP Response: Stress Termination: PROTOCOL COMPLETE Stress Symptoms: No chest pain or symptoms Stress Summary: ECG ANALYSIS Resting ECG: Normal sinus rhythm with left bundle branch block Stress ECG: Patient was given intravenous Lexiscan as a protocol EKG changes are inconclusive CONCLUSIONS Inconclusive EKG part of the stress test or left bundle branch block Cardiolite portion of the stress test will be reported separately Dr. Talha Warner MD (Electronically Signed) Final Date: 28 April 2023 10:58
[2023-04-28 12:00] LABS: Glucose,Whole Blood 240 mg/dL (70-110)
--- NOTE | 2023-04-28 13:00 | P.DS ---
Providers Date of admission: 04/27/23 15:57 Expected date of discharge: 04/28/23 Attending physician: Nadia Gardner DO Consults: 04/27/23 15:55 Consult Physician Urgent Consulting Provider: Benja Rogers Consult Reason/Comments: new LBBB Do you want consulting provider notified?: Already Contacted Primary care physician: Zachariah Stewart MD Hospital Course: Patient is a 67-year-old female with PMH of diabetes mellitus, dyslipidemia, seasonal ALLERGIES, GERD presents the ED for abnormal EKG done at her PCP office. Patient reports fatigue that has been ongoing for many months. She initially associated her symptom to insomnia and difficulty sleeping. She reports sleeping on average about 3 hours every night. Patient reports intermitted pressure like chest pain that has occured maybe 3-4 times in the past 2 weeks. Pain is not related to movement or inspiration. Pain is not related to exertion. She also reports palpitations at times that lasts for about one minute. She is able to walk for one hour without any issues. Denies smoking, alcohol or illicit drugs. She reports family history of MO in her grandfather at 44. Today, she went to go visit her PCP who did an EKG which showed LBBB. Given her above symptoms, he sent her to the ED for evaluation. In the ED, her vital signs were stable. CBC was unremarkable. INR was 0.9. CMP showed glucose 150 and CPK of 186. Troponin was less than 0.012. BNP was 41. Magnesium was 2. Chest x-ray was unremarkable. EKG showed sinus rhythm with left bundle branch block. Patient is admitted for cardiology evaluation. 04/28 Patient was seen and examined. No acute events overnight. She denies any chest pain but reports fatigue. Able to sleep last night. Troponin < 0.012 x 3. ACS has been ruled out. Cardiology consulted and underwent stress test, results pending. Plans for discharge home if stress test is negative. She is advised to obtain a sleep study through her PCP for insomnia and fatigue. Pertient studies as above. General: non toxic, no distress, appears at stated age Derm: warm, dry Head: atraumatic, normocephalic, symmetric Eyes: EOMI, no lid lag, anicteric sclera Cardiovascular: good distal perfusion in all 4 extremities Lungs: breathing comfortably, no accessory muscle use Ext: no gross muscle atrophy, no edema, no contractures Neuro: no focal neuro deficits Psych: Alert, oriented, appropriate affect Discharge Diagnosis: Left bundle branch block on EKG Palpitations Chest pain Insomnia Chronic conditions: Diabetes mellitus, dyslipidemia, seasonal ALLERGIES, GERD This complex discharge took 35 minutes to complete. Patient Condition at Discharge: Stable Plan - Discharge Summary New Discharge Prescriptions: No Action Pantoprazole Sodium 40 mg PO HS Magnesium Oxide [Toth] 500 mg PO DAILY Turmeric Root Extract [Turmeric] 500 mg PO HS Aspirin 81 mg PO HS Loratadine [Claritin] 10 mg PO HS Cholecalciferol [Vitamin D3 (125 Mcg = 5000 Iu)] 125 mcg PO DAILY Insulin NPH Hum/Reg Insulin Hm [Novolin 70-30 100 Unit/ml Vial] 24 unit SQ HS Insuln Asp Prt/Insulin Aspart [NovoLOG MIX 70-30 VIAL] 27 unit SQ DAILY Multivit with Calcium,Iron,Min [Women's Multivitamin] 1 tab PO DAILY Dextrose [Glucose Chew Tab] 2 - 4 gm PO QID PRN PRN Reason: LOW BLOOD SUGAR Discharge Medication List Pantoprazole Sodium 40 mg PO HS 01/19/15 [History] Aspirin 81 mg PO HS 01/27/21 [History] Loratadine [Claritin] 10 mg PO HS 01/27/21 [History] Cholecalciferol [Vitamin D3 (125 Mcg = 5000 Iu)] 125 mcg PO DAILY 04/27/23 [History] Dextrose [Glucose Chew Tab] 2 - 4 gm PO QID PRN 04/27/23 [History] Insulin NPH Hum/Reg Insulin Hm [Novolin 70-30 100 Unit/ml Vial] 24 unit SQ HS 04/27/23 [History] Insuln Asp Prt/Insulin Aspart [NovoLOG MIX 70-30 VIAL] 27 unit SQ DAILY 04/27/23 [History] Magnesium Oxide [Toth] 500 mg PO DAILY 04/27/23 [History] Multivit with Calcium,Iron,Min [Women's Multivitamin] 1 tab PO DAILY 04/27/23 [History] Turmeric Root Extract [Turmeric] 500 mg PO HS 04/27/23 [History] Follow up Appointment(s)/Referral(s): Zachariah Stewart MD [Primary Care Provider] - 1-2 days
[2023-04-28 13:14] LABS: Chol/HDL Ratio 4.73 Ratio; LDL Cholesterol,Calculated 62.2 mg/dL (0.0-131.0); VLDL Calculation 90.8 mg/dL (5.00-40.00)
[2023-04-28 13:24] LABS: LDL Cholesterol,Direct Reflex 93.6 mg/dL (0.00-129.00)
--- NOTE | 2023-04-28 13:24 | NM ---
EXAMINATION TYPE: NM stress lexiscan cardiolite DATE OF EXAM: 04/28/2023 COMPARISON: 07/09/2020 HISTORY: Chest pain TECHNIQUE: After the intravenous administration of 10.0 mCi Tc 99m Sestamibi - Cardiolite resting SP ECT images acquired 45 minutes post injection. At peak stress 25.4 mCi Tc 99m Sestamibi - Stress images obtained 45 minutes post injection The patient was stressed with 0.4mg Lexiscan. FINDINGS: No fixed defects are evident No reversible stress defects on Spect images There is some mild dyskinesia of the inferior apical wall. Ejection fraction is calculated to be 68 %. IMPRESSION: 1. No stress-induced ischemic changes. 2. Some mild dyskinesia of the inferior apical wall
[2023-04-28 14:11] VITALS: BP 114/47; PULSE 74; TEMP 97.7
== END 2023-04-28 14:11 | disposition home or self-care (01) ==
LOC: EC 12:00 → 6NMEDSUR 15:57
PROVIDERS: ADMIT Internal Medicine; ATTEND Internal Medicine
DX: R06.02 Shortness of breath (principal); I44.7 Left bundle-branch block, unspecified; I25.10 Atherosclerotic heart disease of native coronary artery without angina pectoris; E78.5 Hyperlipidemia, unspecified; I08.0 Rheumatic disorders of both mitral and aortic valves; E11.9 Type 2 diabetes mellitus without complications; R94.31 Abnormal electrocardiogram [ECG] [EKG]; R00.2 Palpitations; R07.89 Other chest pain; G47.00 Insomnia, unspecified; K76.9 Liver disease, unspecified; K21.9 Gastro-esophageal reflux disease without esophagitis; K76.0 Fatty (change of) liver, not elsewhere classified; L84 Corns and callosities; J30.2 Other seasonal allergic rhinitis; R79.89 Other specified abnormal findings of blood chemistry; R25.2 Cramp and spasm; R53.83 Other fatigue; M79.10 Myalgia, unspecified site; F32.A Depression, unspecified; F41.0 Panic disorder [episodic paroxysmal anxiety]; Z79.4 Long term (current) use of insulin; Z79.82 Long term (current) use of aspirin; Z79.899 Other long term (current) drug therapy; Z91.040 Latex allergy status; Z91.011 Allergy to milk products; Z88.8 Allergy status to other drugs, medicaments and biological substances; Z91.018 Allergy to other foods; Z90.49 Acquired absence of other specified parts of digestive tract; Z90.710 Acquired absence of both cervix and uterus; Z98.891 History of uterine scar from previous surgery; Z98.890 Other specified postprocedural states; Z82.0 Family history of epilepsy and other diseases of the nervous system; Z82.49 Family history of ischemic heart disease and other diseases of the circulatory system
CPT/HCPCS: 96374; 99285; 36415; 93005 ×2; 93017; 93306; 83880; 80061; 80053; 82550; 83735; 84484; 85025; 85610; 85730; 83721; 83036; 71046; 78452; G0378 ×2; A9500; J2785; J1885

== ENCOUNTER → 2023-08-01 | Outpatient (CLI) | payer MEDICARE ==
--- NOTE | 2023-08-03 00:07 | MM ---
Reason for Exam: Screening (asymptomatic). Last mammogram was performed 1 year(s) and 2 month(s) ago. Patient History: Menarche at age 18. First Full-Term at age 29. Left ovary removed at age 54. Right ovary removed at age 54. Hysterectomy at age 54. Postmenopausal. Patient used Estrogen for 2 years. Core Biopsy on the Right side. 12/21/1998, Benign Stereotactic Core Biopsy on the right side. Paternal cousin had breast cancer, age 40. Risk Values: Nancy 5 year model risk: 2.5%. NCI Lifetime model risk: 9.0%. Prior Study Comparison: 04/30/2018 Bilateral Screening Mammogram, [facility]. 09/24/2020 Bilateral Screening Mammogram, [facility]. 06/08/2022 Bilateral MG 3D screening mammo w/cad, [facility]. Tissue Density: There are scattered fibroglandular densities. Findings: Analyzed By CAD. Microclip in the right breast from prior biopsy. There is no suspicious group of microcalcifications or new suspicious mass in either breast. Overall Assessment: Negative, BI-RAD 1 Management: Screening Mammogram of both breasts in 1 year. . Patient should continue monthly self-breast exams. A clinical breast exam by your physician is recommended on an annual basis. This exam should not preclude additional follow-up of suspicious palpable abnormalities. Note on Nancy scores and lifetime risk: 1. A Nancy score greater than 3% is considered moderate risk. If this is the case, consider specialist referral to assess eligibility for a risk reducing agent. 2. If overall lifetime risk for the development of breast cancer is 20% or higher, the patient may qualify for future screening with alternating mammogram and breast MRI. Electronically signed and approved by: Silvana Rm M.D. Radiologist
== END | disposition home or self-care (01) ==
LOC: RADMAMWWP 16:57
PROVIDERS: ATTEND Internal Medicine
DX: Z12.31 Encounter for screening mammogram for malignant neoplasm of breast (principal); Z78.0 Asymptomatic menopausal state; Z80.3 Family history of malignant neoplasm of breast
CPT/HCPCS: 77063; 77067

== ENCOUNTER → 2023-08-19 | Outpatient (CLI) | payer MEDICARE ==
[2023-08-19 22:48] LABS: Basophils # (A) 0.05 X 10*3/uL (0.00-0.10); Basophils % (A) 0.7 %; Eosinophils # (A) 0.35 X 10*3/uL (0.04-0.35); Eosinophils % (A) 4.8 %; HCT 42.4 % (37.2-46.3); HGB 13.7 g/dL (12.0-15.0); Lymphocytes # (A) 1.91 X 10*3/uL (0.90-5.00); Lymphocytes % (A) 26.2 %; MCH 29.4 pg (27.0-32.0); MCHC 32.3 g/dL (32.0-37.0); Mean Platelet Volume 11.8 FL (9.5-12.2); Monocytes # (A) 0.46 X 10*3/uL (0.20-1.00); Monocytes % (A) 6.3 %; NRBC Per 100 WBC 0 X 10*3/uL (0.00-0.01); Neutrophils # (A) 4.52 X 10*3/uL (1.80-7.70); Neutrophils % (A) 61.9 %; Platelet Count 214 X 10*3/uL (140-440); RBC 4.66 X 10*6/uL (4.10-5.20); RDW 13.7 % (11.5-14.5)
[2023-08-19 23:23] LABS: % Iron Saturation 22.05 (12.00-45.00); ALT 35 U/L (8-44); AST 28 U/L (13-35); Albumin 4.4 g/dL (3.8-4.9); Albumin/Globulin Ratio 1.83 Ratio (1.60-3.17); Alkaline Phosphatase 64 U/L (41-126); BUN/Creat Ratio 17.44 Ratio (12.00-20.00); Blood Urea Nitrogen 15.7 mg/dL (9.0-27.0); Calcium 10.1 mg/dL (8.7-10.3); Carbon Dioxide 27.2 mmol/L (21.6-31.8); Chloride 102 mmol/L (96-109); Chol/HDL Ratio 4.26 Ratio; Creatine Kinase 162 U/L (26-186); Ferritin 98.5 ng/mL (10.0-291.0); Globulin 2.4 g/dL (1.6-3.3); Glucose 187 mg/dL (70-110); Iron 71 UG/DL (50-170); LDL Cholesterol,Calculated 105.6 mg/dL (0.0-131.0); Potassium 5.1 mmol/L (3.5-5.5); Sodium 140 mmol/L (135-145); Total Bilirubin 0.4 mg/dL (0.3-1.2); Total Iron Binding Capacity 322 UG/DL (228-460); Total Protein 6.8 g/dL (6.2-8.2)
== END | disposition home or self-care (01) ==
LOC: LABWHC1 09:50
PROVIDERS: ATTEND Internal Medicine
DX: E11.9 Type 2 diabetes mellitus without complications (principal); E78.5 Hyperlipidemia, unspecified; E55.9 Vitamin D deficiency, unspecified; E53.8 Deficiency of other specified B group vitamins
CPT/HCPCS: 36415; 80053; 80061; 82306; 82550; 82607; 82728; 82746; 83540; 83550; 83735; 84443; 85025

== ENCOUNTER → 2023-10-20 | Day surgery (SDC) | payer MEDICARE ==
[2023-10-19 09:28] VITALS: BMI 28.9
[~2023-10-20] MED LIST changes: +LIDOCAINE 1% INJ 10MG/ML (20 ML MDV) ONE; +PROPOFOL 10 MG/ML 20 ML VIAL IV ONE
[2023-10-20] MEDS: LACTATED RINGERS 1,000 ML IV ONE (08:00)
[2023-10-20 08:19] LABS: Glucose,Whole Blood 178 mg/dL (70-110)
[2023-10-20 08:29] VITALS: TEMP 96.8
[2023-10-20 08:43] LABS: Glucose,Whole Blood 192 mg/dL (70-110)
--- NOTE | 2023-10-20 09:12 | P.PCN ---
"Date of Procedure: 10/20/23 Procedure(s) Performed: BRIEF HISTORY: Patient is a 68-year-old, pleasant, white female scheduled for an upper endoscopy as a part of evaluation of long-standing history of GERD. His been on Prilosec twice daily and Carafate 1 g 4 times daily despite which significant symptomatic and hence scheduled for an upper endoscopy to rule out complicated reflux disease. PROCEDURE PERFORMED: Esophagogastroduodenoscopy with biopsy. PREOPERATIVE DIAGNOSIS: Long-standing history of GERD |. IV sedation per anesthesia. PROCEDURE: After informed consent was obtained, the patient was brought into the endoscopy unit. IV sedation was administered by Anesthesia under continuous monitoring. Initially the Olympus GIF-140 video endoscope was inserted into the mouth. Esophagus intubated without any difficulty. It was gradually advanced into the stomach and duodenum and carefully examined. The bulb and the second part of the duodenum appeared normal. The scope at this time was withdrawn to the stomach, adequately insufflated with air, and upon careful examination, mucosa of the antrum, had mild gastritis and biopsies Were done from this area. There were small gastric polyps in the proximal body the stomach which were biopsied. Rest of the body, cardia and the fundus appeared normal. The scope was then withdrawn into the esophagus. The hiatal hernia noted. The GE junction was located at 37 cm from the incisors. The esophagus appeared normal. There were no erosions or ulcerations seen and biopsies were done from the distal esophagus and the patient tolerated the procedure well. IMPRESSION: 1. Small hiatal hernia but no evidence of esophagitis or Bellamy's esophagus. 2. Mild antral gastritis 3. Small gastric polyps in the gastric body status post biopsy RECOMMENDATIONS: The findings of this examination were discussed with the patient as well as her family. She was advised to follow with the biopsy results. Continue with Protonix 40 g twice daily as well as Carafate as needed and follow antireflux measures.."
[2023-10-20 09:24] LABS: Glucose,Whole Blood 183 mg/dL (70-110)
[2023-10-20 09:32] VITALS: RESP 16
[2023-10-20 10:02] VITALS: BP 126/73; PULSE 59
== END ==
LOC: ORWHC2ENDO 07:50
PROVIDERS: ATTEND Internal Medicine Gastroenterology
DX: K29.50 Unspecified chronic gastritis without bleeding (principal); K31.7 Polyp of stomach and duodenum; K21.9 Gastro-esophageal reflux disease without esophagitis; K44.9 Diaphragmatic hernia without obstruction or gangrene; E78.5 Hyperlipidemia, unspecified; F41.9 Anxiety disorder, unspecified; F32.A Depression, unspecified; Z90.710 Acquired absence of both cervix and uterus; Z79.890 Hormone replacement therapy; Z91.040 Latex allergy status; Z98.891 History of uterine scar from previous surgery; Z79.899 Other long term (current) drug therapy
CPT/HCPCS: 43239; 88305

== ENCOUNTER → 2024-03-18 | Outpatient (CLI) | payer MEDICARE ==
--- NOTE | 2024-03-18 10:31 | XR ---
EXAMINATION TYPE: XR knee complete RT DATE OF EXAM: 03/18/2024 COMPARISON: NONE HISTORY: 68-year-old female M1 7.11, knee arthritis, twisting injury TECHNIQUE: 4 views FINDINGS: Degenerative spurring greatest in the medial and patellofemoral compartments. Trace knee joint effusi on. Extensor mechanism appears intact. Questionable subtle lucency at the peripheral margin of the la teral tibial plateau on the oblique view. The patella remains appropriately situated along the trochl ear groove. IMPRESSION: 1. [id number] tricompartmental osteoarthrosis. 2. Questionable subtle lucency involving the peripheral margin of the lateral tibial plateau on the o blique view. This could be projectional. Correlate for point tenderness to exclude a subtle nondispla kanika tibial plateau fracture.
== END | disposition home or self-care (01) ==
LOC: RADXRMAIN 10:08
PROVIDERS: ATTEND Internal Medicine
DX: M17.11 Unilateral primary osteoarthritis, right knee (principal); X50.1XXA Overexertion from prolonged static or awkward postures, initial encounter

== ENCOUNTER → 2024-03-27 | Outpatient (CLI) | payer MEDICARE ==
--- NOTE | 2024-04-06 11:01 | MR ---
EXAMINATION TYPE: MR tib fib RT wo con DATE OF EXAM: 03/27/2024 COMPARISON: Correlation radiograph 03/18/2024 HISTORY: 68-year-old female M89.8X6 OTHER SPECIFIED DISORDERS OF BONE, LOWER L. Right lower leg pain near knee due to twisting right knee and fell TECHNIQUE: Multiplanar, multisequence images of the right kidney and fibula were obtained without IV contrast. Coronal and axial images of the contralateral side were obtained for comparison purposes. FINDINGS: Tricompartmental degenerative changes. Cartilage loss especially along the medial meniscus is extrude d. Possible ligament radial tear of the posterior horn. With attention to the site of questioned abnormality on radiograph, no discrete fracture or marrow ed isra is seen along the lateral tibial plateau. Finding suggest irregularity due to degenerative spurri ng. There is a moderate on the right. No acute or healing fractures or abnormal bone marrow replacement. Ankle articulations appear grossly intact. No other significant soft tissue abnormality is seen. IMPRESSION: 1. No acute or healing fracture, with particular attention to the lateral tibial plateau as questione d on patient's recent radiograph. 2. Tricompartmental osteoarthrosis at the knee, with the most significant cartilage loss involving th e medial compartment. 3. Medial meniscal extrusion appears to be secondary to a through thickness radial tear of the tennis professional ior horn. Moderate joint effusion likely reactive.
== END | disposition home or self-care (01) ==
LOC: RADMRIMAIN 16:28
PROVIDERS: ATTEND Internal Medicine
DX: M89.8X6 Other specified disorders of bone, lower leg (principal); M17.11 Unilateral primary osteoarthritis, right knee

== ENCOUNTER → 2024-05-10 | Outpatient (CLI) | payer MEDICARE ==
[2024-05-10 12:49] LABS: Basophils # (A) 0.1 k/uL (0-0.2); Basophils % (A) 1 %; Eosinophils # (A) 0.4 k/uL (0-0.7); Eosinophils % (A) 5 %; HCT 41.1 % (34.0-46.0); HGB 13.4 gm/dL (11.4-16.0); Lymphocytes % (A) 28 %; MCH 29.2 pg (25.0-35.0); MCHC 32.6 g/dL (31.0-37.0); MCV 89.4 fL (80.0-100.0); Mean Platelet Volume 7.6; Monocytes # (A) 0.3 k/uL (0-1.0); Monocytes % (A) 4 %; Neutrophils # (A) 4.2 k/uL (1.3-7.7); Neutrophils % (A) 60 %; Platelet Count 304 k/uL (150-450); RDW 14.1 % (11.5-15.5); WBC 7.1 k/uL (3.8-10.6)
[2024-05-10 13:23] LABS: ALT 34 U/L (4-34); AST 36 U/L (14-36); African American GFR (CKD) 68 (>60 ml/min/1.73 sqM); Albumin 4.4 g/dL (3.5-5.0); Albumin/Globulin Ratio 1.6; Alkaline Phosphatase 77 U/L (38-126); Anion Gap 8 mmol/L; Blood Urea Nitrogen 25 mg/dL (7-17); Carbon Dioxide 24 mmol/L (22-30); Chloride 104 mmol/L (98-107); Globulin 2.7 g/dL; Glucose 236 mg/dL (74-99); Non-African American GFR(CKD) 59 (>60 ml/min/1.73 sqM); Potassium 4.8 mmol/L (3.5-5.1); Sodium 136 mmol/L (137-145); Total Bilirubin 0.7 mg/dL (0.2-1.3); Total Protein 7.1 g/dL (6.3-8.2)
== END | disposition home or self-care (01) ==
LOC: LABWHC1 11:55
PROVIDERS: ATTEND Internal Medicine
DX: Z00.00 Encounter for general adult medical examination without abnormal findings (principal)
CPT/HCPCS: 36415; 80053; 85025

== ENCOUNTER → 2024-05-30 | Outpatient (CLI) | payer MEDICARE ==
[2024-05-30 11:06] LABS: Basophils # (A) 0.04 X 10*3/uL (0.00-0.10); Basophils % (A) 0.6 %; Eosinophils # (A) 0.25 X 10*3/uL (0.04-0.35); Eosinophils % (A) 3.8 %; HCT 41.8 % (37.2-46.3); Lymphocytes # (A) 2.64 X 10*3/uL (0.90-5.00); Lymphocytes % (A) 40.4 %; MCH 29.4 pg (27.0-32.0); MCHC 33.5 g/dL (32.0-37.0); MCV 87.6 FL (80.0-97.0); Mean Platelet Volume 10.5 FL (9.5-12.2); Monocytes # (A) 0.57 X 10*3/uL (0.20-1.00); Monocytes % (A) 8.7 %; NRBC Per 100 WBC 0 X 10*3/uL (0.00-0.01); Neutrophils # (A) 3.01 X 10*3/uL (1.80-7.70); Neutrophils % (A) 46.2 %; Platelet Count 301 X 10*3/uL (140-440); RBC 4.77 X 10*6/uL (4.10-5.20); RDW 14.1 % (11.5-14.5); WBC 6.53 X 10*3/uL (4.50-10.00)
[2024-05-30 11:35] LABS: % Iron Saturation 25.55 (12.00-45.00); ALT 38 U/L (8-44); AST 27 U/L (13-35); Albumin 4.5 g/dL (3.8-4.9); Alkaline Phosphatase 85 U/L (41-126); BUN/Creat Ratio 18.91 Ratio (12.00-20.00); Blood Urea Nitrogen 20.8 mg/dL (9.0-27.0); Carbon Dioxide 28.3 mmol/L (21.6-31.8); Chloride 101 mmol/L (96-109); Chol/HDL Ratio 4.87 Ratio; Globulin 2.5 g/dL (1.6-3.3); Glucose 119 mg/dL (70-110); Iron 116 UG/DL (50-170); LDL Cholesterol,Calculated 181.3 mg/dL (0.0-131.0); Magnesium 2.3 mg/dL (1.5-2.4); Potassium 4.2 mmol/L (3.5-5.5); Sodium 141 mmol/L (135-145); Total Bilirubin 0.4 mg/dL (0.3-1.2); Total Iron Binding Capacity 454 UG/DL (228-460); Uric Acid 5.9 mg/dL (2.9-7.7); VLDL Calculation 13.44 mg/dL (5.00-40.00)
== END | disposition home or self-care (01) ==
LOC: LABWHC1 07:06
PROVIDERS: ATTEND Internal Medicine
DX: M17.11 Unilateral primary osteoarthritis, right knee (principal); E11.9 Type 2 diabetes mellitus without complications; K21.9 Gastro-esophageal reflux disease without esophagitis; E78.5 Hyperlipidemia, unspecified; E55.9 Vitamin D deficiency, unspecified; E53.8 Deficiency of other specified B group vitamins
CPT/HCPCS: 36415; 80053; 80061; 82306; 82607; 82746; 83540; 83550; 83735; 84443; 84550; 85025

== ENCOUNTER → 2024-08-19 | Outpatient (CLI) | payer MEDICARE ==
--- NOTE | 2024-08-19 22:29 | MM ---
Reason for Exam: Screening (asymptomatic). Last mammogram was performed 1 year(s) and 1 month(s) ago. Patient History: Menarche at age 18. First Full-Term at age 29. Left ovary removed at age 54. Right ovary removed at age 54. Hysterectomy at age 54. Postmenopausal. Estrogen for 6 months. Core Biopsy on the Right side. 12/21/1998, Benign Stereotactic Core Biopsy on the right side. Paternal cousin had breast cancer, age 40. Risk Values: Nancy 5 year model risk: 2.6%. NCI Lifetime model risk: 8.7%. Prior Study Comparison: 09/24/2020 Bilateral Screening Mammogram, [facility]. 06/08/2022 Bilateral MG 3D screening mammo w/cad, [facility]. 08/01/2023 Bilateral MG 3D screening mammo w/cad, [facility]. Tissue Density: There are scattered areas of fibroglandular density. Findings: Analyzed By CAD. The pattern is symmetrical. Core marker is within the right breast. No suspicious groups of microcalcifications, spiculated or lobular masses, architectural distortion or other secondary signs of malignancy are mammographically apparent. Overall Assessment: Benign, BI-RAD 2 Management: Screening Mammogram of both breasts in 1 year. A negative mammogram report should not preclude additional follow up of suspicious palpable abnormalities. Patient should continue monthly self breast exam. A clinical breast exam by your physician is recommended on an annual basis and results should be correlated with mammographic findings. Note on Nancy scores and lifetime risk: 1. A Nancy score greater than 3% is considered moderate risk. If this is the case, consider specialist referral to assess eligibility for a risk reducing agent. 2. If overall lifetime risk for the development of breast cancer is 20% or higher, the patient may qualify for future screening with alternating mammogram and breast MRI. [facility], , 08/19/2024 10:26 PM. Electronically signed and approved by: Nico Adam D.O. Radiologis
== END | disposition home or self-care (01) ==
LOC: RADMAMWWP 09:11
PROVIDERS: ATTEND Internal Medicine
DX: Z12.31 Encounter for screening mammogram for malignant neoplasm of breast (principal); Z78.0 Asymptomatic menopausal state; Z90.722 Acquired absence of ovaries, bilateral; Z80.3 Family history of malignant neoplasm of breast; R92.323 Mammographic fibroglandular density, bilateral breasts
CPT/HCPCS: 77063; 77067

== ENCOUNTER → 2024-10-10 | Outpatient (CLI) | payer MEDICARE ==
--- NOTE | 2024-10-10 12:52 | NM ---
EXAMINATION TYPE: NM gastric emptying static DATE OF EXAM: 10/10/2024 COMPARISON: None CLINICAL INDICATION: Female, 69 years old with history of K21.9 GERD E11.9 DIABETES MELLITUS TYPE 2; Following administration of 2 mCi Tc 99m Sulfur Colloid with 3.5 oz eggs, 2 pieces of toast with butt er and jam, 10 oz of water, projection images of the abdomen were obtained 15 minutes minutes post in gestion. Patient Emptying Values 1 Hour 0 % (70-10%) 2 Hours 35 % (> 40%) 3 Hours 39 % (> 70%) 4 Hours 61 % (> 90%) Gastroesophageal reflux: Possibly on the immediate imaging. IMPRESSION: 1. Delayed gastric emptying at all time points up to 4 hours. Scintigraphic findings suggest gastropa resis. 2. Suggestion of gastroesophageal reflux on the initial imaging. [facility], Workstation: [email or web address], 10/10/2024 12:50 PM
== END | disposition home or self-care (01) ==
LOC: RADNMMAIN 06:31
PROVIDERS: ATTEND Internal Medicine
DX: K30 Functional dyspepsia (principal); K21.9 Gastro-esophageal reflux disease without esophagitis; E11.9 Type 2 diabetes mellitus without complications
CPT/HCPCS: 78264; A9541

== ENCOUNTER → 2024-11-26 | Outpatient (CLI) | payer MEDICARE ==
[2024-11-26 15:40] LABS: ALT 35 U/L (8-44); AST 31 U/L (13-35); Albumin 4.4 g/dL (3.8-4.9); Albumin/Globulin Ratio 1.83 Ratio (1.60-3.17); Alkaline Phosphatase 76 U/L (41-126); BUN/Creat Ratio 12.55 Ratio (12.00-20.00); Blood Urea Nitrogen 13.8 mg/dL (9.0-27.0); Calcium 9.4 mg/dL (8.7-10.3); Carbon Dioxide 29.5 mmol/L (21.6-31.8); Chloride 100 mmol/L (96-109); Globulin 2.4 g/dL (1.6-3.3); Glucose 154 mg/dL (70-110); Potassium 4.6 mmol/L (3.5-5.5); Sodium 139 mmol/L (135-145); Total Bilirubin 0.4 mg/dL (0.3-1.2); Total Protein 6.8 g/dL (6.2-8.2)
[2024-11-26 15:45] LABS: Basophils # (A) 0.07 X 10*3/uL (0.00-0.10); Eosinophils # (A) 0.45 X 10*3/uL (0.04-0.35); Eosinophils % (A) 6.6 %; HCT 45.8 % (37.2-46.3); HGB 14.5 g/dL (12.0-15.0); Lymphocytes # (A) 2.13 X 10*3/uL (0.90-5.00); Lymphocytes % (A) 31.4 %; MCH 28.4 pg (27.0-32.0); MCHC 31.7 g/dL (32.0-37.0); MCV 89.8 FL (80.0-97.0); Mean Platelet Volume 11.2 FL (9.5-12.2); Monocytes # (A) 0.52 X 10*3/uL (0.20-1.00); Monocytes % (A) 7.7 %; NRBC Per 100 WBC 0 X 10*3/uL (0.00-0.01); Neutrophils # (A) 3.61 X 10*3/uL (1.80-7.70); Neutrophils % (A) 53.2 %; Platelet Count 243 X 10*3/uL (140-440); RDW 14.5 % (11.5-14.5); WBC 6.79 X 10*3/uL (4.50-10.00)
== END | disposition home or self-care (01) ==
LOC: LABWHC1 08:35
PROVIDERS: ATTEND Internal Medicine
DX: Z01.812 Encounter for preprocedural laboratory examination (principal); E11.9 Type 2 diabetes mellitus without complications
CPT/HCPCS: 36415; 80053; 83036; 85025

== ENCOUNTER → 2025-03-29 | Outpatient (CLI) | payer MEDICARE ==
[2025-03-29 12:11] LABS: Bilirubin,Urine Negative (Negative); Blood,Urine Negative (Negative); Color,Urine Colorless; Glucose,Urine (UA) Negative (Negative); Ketones,Urine Negative (Negative); Leukocyte Esterase,Urine Moderate (Negative); Nitrite,Urine Negative (Negative); PH, Urine 6.5 (5.0-8.0); Protein,Urine Negative (Negative); Specific Gravity,Urine 1.009 (1.001-1.035); Squamous Epithelial Cell,Urine 1 /hpf (0-4); Urobilinogen,Urine <2.0 mg/dL (<2.0); WBC,Urine 8 /hpf (0-5)
[2025-03-29 13:25] LABS: Basophils # (A) 0.06 X 10*3/uL (0.00-0.10); Basophils % (A) 1.0 %; Eosinophils # (A) 0.34 X 10*3/uL (0.04-0.35); Eosinophils % (A) 5.4 %; HCT 41.3 % (37.2-46.3); HGB 13.4 g/dL (12.0-15.0); Immature Grans, Automated 0.20 %; Lymphocytes # (A) 1.99 X 10*3/uL (0.90-5.00); Lymphocytes % (A) 31.8 %; MCH 28.4 pg (27.0-32.0); MCHC 32.4 g/dL (32.0-37.0); MCV 87.5 FL (80.0-97.0); Monocytes # (A) 0.53 X 10*3/uL (0.20-1.00); Monocytes % (A) 8.5 %; NRBC Per 100 WBC 0 X 10*3/uL (0.00-0.01); Neutrophils # (A) 3.33 X 10*3/uL (1.80-7.70); Neutrophils % (A) 53.1 %; Platelet Count 201 X 10*3/uL (140-440); RBC 4.72 X 10*6/uL (4.10-5.20); RDW 13.8 % (11.5-14.5); WBC 6.26 X 10*3/uL (4.50-10.00)
[2025-03-29 13:54] LABS: ALT 32 U/L (8-44); AST 30 U/L (13-35); Albumin 4.2 g/dL (3.8-4.9); Albumin/Globulin Ratio 1.68 Ratio (1.60-3.17); Alkaline Phosphatase 73 U/L (41-126); Anion Gap 12.30 mmol/L (4.00-12.00); BUN/Creat Ratio 16.89 Ratio (12.00-20.00); Blood Urea Nitrogen 15.2 mg/dL (9.0-27.0); Calcium 9.8 mg/dL (8.7-10.3); Carbon Dioxide 25.7 mmol/L (21.6-31.8); Chloride 102 mmol/L (96-109); Cholesterol 230.00 mg/dL (0.00-200.00); Ferritin 55.9 ng/mL (10.0-291.0); Globulin 2.5 g/dL (1.6-3.3); Glucose 196 mg/dL (70-110); HDL Cholesterol 40.70 mg/dL (40.00-60.00); Iron 89 UG/DL (50-170); Magnesium 1.9 mg/dL (1.5-2.4); Potassium 4.8 mmol/L (3.5-5.5); Sodium 140 mmol/L (135-145); Total Iron Binding Capacity 318 UG/DL (228-460); Total Protein 6.7 g/dL (6.2-8.2); Triglycerides 478.00 mg/dL (0.00-149.00); VLDL Calculation 95.60 mg/dL (5.00-40.00); Vitamin B12 500.0 pg/mL (200.0-944.0)
[2025-03-29 14:05] LABS: LDL Cholesterol,Direct Reflex 99.70 mg/dL (0.00-129.00)
== END | disposition home or self-care (01) ==
LOC: LABWHC1 09:24
PROVIDERS: ATTEND Internal Medicine
DX: E55.9 Vitamin D deficiency, unspecified (principal); E11.319 Type 2 diabetes mellitus with unspecified diabetic retinopathy without macular edema; E53.8 Deficiency of other specified B group vitamins; K75.81 Nonalcoholic steatohepatitis (NASH)
CPT/HCPCS: 36415; 80053; 80061; 81001; 82043; 82306; 82570; 82607; 82728; 82746; 83036; 83540; 83550; 83721; 83735; 84443; 85025